=== PATIENT | male | born 1940 | race Caucasian/White ===

== ENCOUNTER 2017-09-30 09:55 | Emergency (ER) | payer MEDICARE, SELFPAY | END 2017-09-30 11:21 | disposition home or self-care (01) | PROVIDERS: Emergency Provider Nurse Practitioner Family; Family Provider Family Medicine; Visit Provider Nurse Practitioner Family | DX: A08.4 Viral intestinal infection, unspecified (principal) | CPT/HCPCS: 99201 ==

== ENCOUNTER → 2017-11-12 15:08 | Outpatient (CLI) | payer MEDICARE, SELFPAY ==
[2017-11-12 15:32] VITALS: BMI 20.6
== END ==
PROVIDERS: PCP Family Medicine; Visit Provider Nurse Practitioner
DX: Z23 Encounter for immunization (principal)
CPT/HCPCS: 90686

== ENCOUNTER → 2018-03-19 14:26 | Outpatient (CLI) | payer MEDICARE, SELFPAY ==
--- NOTE | 2018-03-19 14:30 | MR_ITS ---
MR lumbar spine wo con, MR 3-d myelogram/MRCP HISTORY: PT states low back pain since February 11. PT states bilateral hip pain, bilateral leg pain and tingling. PT also states muscle spasms. ITS.REASON: LUMBAR STENOSIS ORDERING PHYSICIAN: Rosas Anna PATIENT AGE: 77 years Comparison: CT Lumbar 02/12/18 TECHNIQUE: Standard multiplanar multiecho sequences are performed without contrast. 3-D MIP and myelographic images are also rendered and reviewed FINDINGS: There is normal alignment. The spinal cord ends at the L1-L2 level. T11-T12: Unremarkable. T12-L1: Unremarkable. L1-L2: Degenerative disc disease with minimal bulging disc and mild facet ligamentum flavum hypertrophy with mild bilateral foraminal narrowing. L2-L3: Degenerative disc disease. There is a small left paracentral disc herniation along with facet and ligamentum flavum hypertrophy with left lateral recess narrowing. The disc is abutting the left L3 and L4 nerve roots. There is an isointense area adjacent to the disc herniation extending superiorly in the left lateral recess region and foraminal area for superior disc extrusion or possibly a disc fragment with foraminal narrowing. L3-L4: Degenerative disc disease with bulging disc and facet and ligamentum flavum hypertrophy. The disc is slightly eccentric toward the right with bilateral lateral recess and foraminal narrowing greater on the right. L4-L5: Degenerative disc disease with bulging disc and small broad-based right paracentral and foraminal disc revision with type II endplate changes with moderate right-sided foraminal and lateral recess narrowing. The disc is abutting the right L5 nerve root. L5-S1: Degenerative disc disease with bulging disc along with facet and ligamentum flavum hypertrophy with moderate bilateral foraminal narrowing. IMPRESSION: 1. Small left paracentral disc herniation at L2-L3 with suspected superior extrusion on the left versus disc fragment. The disc is abutting the left L3 and L4 nerve roots and there is moderate foraminal narrowing on the left at that level. 2. L3-L4: Degenerative disc disease with bulging disc and facet and ligamentum flavum hypertrophy. The disc is slightly eccentric toward the right with bilateral lateral recess and foraminal narrowing greater on the right. 3. L4-L5: Degenerative disc disease with bulging disc and small broad-based right paracentral and foraminal disc revision with type II endplate changes with moderate right-sided foraminal and lateral recess narrowing. The disc is abutting the right L5 nerve root. 4. L5-S1: Degenerative disc disease with bulging disc along with facet and ligamentum flavum hypertrophy with moderate bilateral foraminal narrowing.
== END ==
PROVIDERS: Family Provider Family Medicine; PCP Family Medicine; Visit Provider Orthopaedic Surgery Orthopaedic Surgery of the Spine
DX: M48.061 Spinal stenosis, lumbar region without neurogenic claudication (principal)
CPT/HCPCS: 72148; 76376

== ENCOUNTER → 2020-06-04 16:08 | Outpatient (CLI) | payer MEDICARE, SELFPAY ==
[2020-06-06 17:19] LABS: Covid-19 Nasal PCR Sendout UK Not Detected
== END ==
PROVIDERS: PCP Family Medicine; Visit Provider Nurse Practitioner Family
DX: Z03.818 Encounter for observation for suspected exposure to other biological agents ruled out (principal)
CPT/HCPCS: U0003

== ENCOUNTER 2020-11-02 12:44 | Emergency (ER) | payer MEDICARE, SELFPAY ==
[2020-11-02 13:30] VITALS: BP 118/71; PULSE 76; RESP 14; TEMP 36.8; O2SAT 98; BMI 20.9
--- NOTE | 2020-11-02 13:56 | HMH.EDUTC ---
[facility] [place] Dis[place] Clinical Impression: Sinusitis Qualifiers: Sinusitis location: unspecified location Chronicity: acute Recurrence: non-recurrent Qualified Code(s): J01.90 - Acute sinusitis, unspecified Disposition: Home, Self-Care Condition on Discharge: Good Instructions: DI for Sinusitis Additional Instructions: Drink plenty of fluids. Take tylenol or ibuprofen for pain or fever. Take the medications as directed. Follow up with your regular doctor. GO TO THE ER FOR ANY WORSENING SYMPTOMS Prescriptions: predniSONE [Deltasone 10mg tablet] 10 mg PO BID 5 Days #10 tab Transmission Status: Received by [facility] # Fluticasone Propionate [Flonase 50mcg nasal spray 16gm] 1 spr NS BID 30 Days #1 bottle Transmission Status: Received by [facility] # Cefdinir [Omnicef 300mg Capsule] 300 mg PO BID #20 cap Transmission Status: Received by [facility] # Referrals: Lonnie Munoz [Primary Care Provider] - Time of Disposition: 14:06 Medical Decision Making - Medical Records Medical records reviewed: No: I reviewed the patient's medical records. - Jeancarlos Inquiry Pt receiving controlled substance: No Vital Signs: 11/02/20 13:30 11/02/20 14:13 Temperature 98.2 F 98.2 F Temperature Source Oral Pulse Rate 76 Pulse Rate [Right Brachial] 76 Respiratory Rate 14 14 Blood Pressure 118/71 Blood Pressure [Right Arm] 118/71 Blood Pressure Mean [Right Arm] 86 Blood Pressure Source [Right Arm] Automatic Cuff Blood Pressure Position [Right Arm] Sitting 02 Sat by Pulse Oximetry 98 Oxygen Delivery Method Room Air Orders (Tests/Meds): ORDERS Category Date Time Status Covid-19 Nasal PCR Sendout P&C Routine Lab 11/02/20 13:40 Received [facility] [place] HPI - General Stated complaint: Roaring in Head, Muscle Pain, Weakness Time Seen by Provider: 11/02/20 13:56 Mode of Arrival: Ambulatory Source of Information: Patient, Significant Other Limitations: No Limitations Description of Symptoms (Recalled from Triage Doc. by RN): PATIENT C/O NASAL DRAINAGE, WATERY EYES, HOARSENESS, WEAKNESS, AND SOA HEENT Symptoms (Recalled from RN notes): No Resp Symptoms (Recalled from RN notes): No Skin Symptoms (Recalled from RN notes): No MS Symptoms (Recalled from RN notes): No Functional Status (Recalled from RN notes): WNL - History of Present Illness Provider Complaint: He states that for the past week or so he has had worsening sinus drainage and congestion. He denies any fever or chills. He denies any covid exposure. - Related Data Home Medications Medication Instructions Recorded Confirmed Clopidogrel Bisulfate [Plavix 75mg 75 mg PO DAILY 02/11/18 02/12/18 Tab] Dicyclomine HCl 20 mg PO QID 02/11/18 02/12/18 Omeprazole [Omeprazole 20mg 20 mg PO DAILY 02/11/18 02/12/18 Capsule] Tamsulosin HCl [Flomax 0.4mg 0.4 mg PO DAILY 02/11/18 02/12/18 capsule] Telmisartan 40 mg PO DAILY 02/11/18 02/12/18 Previous Rx's Medication Instructions Recorded Hydrocod/Acet 5/325 mg [[place] 1 tab PO Q6HP PRN #12 tab 02/12/18 5/325mg tablet] predniSONE [Prednisone 20mg 20 mg PO DAILY #10 tab 02/12/18 Tab] Methocarbamol [Robaxin 500mg Tab] 500 mg PO BID PRN #14 tab 11/30/18 Cefdinir [Omnicef 300mg Capsule] 300 mg PO BID #20 cap 11/02/20 Fluticasone Propionate [Flonase 1 spr NS BID 30 Days #1 bottle 11/02/20 50mcg nasal spray 16gm] predniSONE [Deltasone 10mg tablet] 10 mg PO BID 5 Days #10 tab 11/02/20 Allergies Allergy/AdvReac Type Severity Reaction Status Date / Time aspirin [ASPIRIN] Allergy Mild Verified 11/12/17 15:35 codeine [CODEINE] Allergy Mild Verified 11/12/17 15:35 guaifenesin [GUAIFENESIN] Allergy Mild Verified 11/12/17 15:35 Penicillins [PENICILLINS] Allergy Mild Verified 11/12/17 15:35 - Worker's Comp Is this a Worker's Comp case?: No [facility] History - Hepatitis A Screen Drug use history?: No High risk sexu
[2020-11-02 14:13] VITALS: BP 118/71; PULSE 76; RESP 14; TEMP 36.8; O2SAT 98
[2020-11-03 11:01] LABS: Covid-19 Nasal PCR Sendout P&C Negative
== END 2020-11-02 14:15 | disposition home or self-care (01) ==
PROVIDERS: Emergency Provider Nurse Practitioner Family; PCP Family Medicine
DX: Z20.822 Contact with and (suspected) exposure to COVID-19 (principal); J01.90 Acute sinusitis, unspecified; Z88.0 Allergy status to penicillin
CPT/HCPCS: G0463; 99202; U0004

== ENCOUNTER → 2020-12-31 13:34 | Outpatient (CLI) | payer MEDICARE, SELFPAY ==
--- NOTE | 2020-12-31 13:40 | US_ITS ---
PROCEDURE: US SOFT TISSUE HEAD AND NECK CLINICAL INDICATION: LUMP IN NECK COMPARISON: No exams were available for comparison FINDINGS: Ultrasound performed of the palpable nodule in the back head/neck on the right. There is a 3 x 3 cm by 0.9 cm in thickness lentiform appearing slightly hypoechoic nodule with internal striations which may represent a lipoma. No cyst is evident. This does not have a typical appearance for lymph node. IMPRESSION: Hypoechoic nodule in the right aspect of the neck and head posteriorly consistent with a lipoma Dictated by: Alex Piña MD 12/31/2020 15:27 Alex Piña MD in [place] 12/31/2020 15:27
== END ==
PROVIDERS: PCP Family Medicine; Visit Provider Nurse Practitioner Family
DX: R22.1 Localized swelling, mass and lump, neck (principal)
CPT/HCPCS: 76536

== ENCOUNTER → 2021-01-18 11:23 | Outpatient (CLI) | payer MEDICARE, SELFPAY ==
--- NOTE | 2021-01-18 | CA_ITS ---
APPROVED REPORT Exam: Pharmacologic Technologist: Nevin Nielson Ht: 5 ft 5 in Wt: 126 lbs BSA: 1.63 m2 HR: 56 bpm BP: 136/69 mmHg Indications: Chest Pain, Shortness of Breath Medical History Medications: Omeprazole,,,,, TAMSULOSIN,,,,, CloPIdogrel,,,,, Telmisartan,,,,, Stress Test Details Test: LEXISCAN HR Resting HR: 81 bpm Max Heart Rate (APMHR): 141.761127 bpm Max HR Achieved: 103 bpm Target HR (85% APMHR): 119.766822 bpm % of APMHR: 73.05 Recovery HR: 94 bpm BP Resting BP: 136.0/69.0 mmHg Max BP: 136.0/69.0 mmHg Recovery BP: 136.0/76.0 mmHg ECG Resting ECG: Sinus bradycardia, otherwise normal Clinical Exercise duration: 04:03 min Highest Stage Achieved: Exercise capacity: 1.0 METs Stress ECG Conclusion Symptoms: Shortness of air, malaise. No chest pain Arrhythmias/Ectopy: Rare PVC, fusion beat ST-T Changes: No significant changes Conclusion: Unremarkable lexiscan stress. Myoview images reported separately. Electronically signed by : Darryl Kahn, 01/18/2021 21:55:13
--- NOTE | 2021-01-18 11:25 | CA_ITS ---
APPROVED REPORT EXAM: Comprehensive 2D, Doppler, and color-flow Echocardiogram Youth Support Worker: Halie Gil, AFIA, RVS Ht: 5 ft 5 in Wt: 126lbs BSA: 1.63 HR: 70 bpm BP: 140/63 mmHg Rhythm: NSR Indications: SOB, CP, CAD, Hx-MA 2D Dimensions IVSd 0.86 cm LVEF (Visual) 54.40 % PWd 0.95 cm LA Volume 43.80 mL LVDd 4.03 cm LA Volume Index 26.90 mL/m2 (M/F) 16-34 LVDs 2.91 cm LVOT 1.98 cm (M/F) 1.5-2.5 M-Mode Dimensions LA Diam 3.95 cm (1.9-4.0) Ao Diam 3.16 cm (2.0-3.7) EPSs 0.68 cm TAPSE 2.33 (<1.7) LV Diastology E Decel Time 260.00 (160-240 msec) E/A Ratio 2.06 MED E' 12.40 (< 7 cm/sec) MED A' 14.80 cm/s E'/MED E' Ratio 8.04 (>14) LAT E' 12.80 (<10 cm/sec) LAT A' 12.40 cm/s E/LAT E' Ratio 7.79 (>14) Aortic Valve LVOT Max 99.00 (70-110 cm/s) LVOT VTI 18.67 cm AoV Peak Vasu. 129.00 (50-130 cm/s) AO Peak GR. 6.70 mmHg AO Mean GR. 3.20 (<5 mmHg) AO VTI 27.89 (18-25 cm) POLY (VTI) 2.06 (2.5-4.5 cm2) Mitral Valve MV E Max Vasu. 100.00 (40-130 cm/s) MV A Velocity 48.00 (40-130 cm/s) E/A Ratio 2.06 MV Decel. Time 260.00 (160-240 ms) MV PHT 76.00 ms Pulmonary Valve PV Peak Velocity 91.00 (50-150 cm/s) CT End VMAX 183.00 cm/s Tricuspid Valve TR P. Velocity 271.00 cm/s RAP Estimate 10.00 mmHg RVSP 39.40 mmHg Left Ventricle Left atrium is mildly enlarged, left ventricle is normal size, mild concentric left ventricular hypertrophy, visually estimated ejection fraction 55% with no regional wall motion abnormality, diastolic parameters are inconclusive. Right Ventricle Right atrium is mildly enlarged, right ventricle is mildly dilated with normal contractility. Aortic Valve Aortic valve is minimally thickened and fibrosed, there is no aortic stenosis or aortic insufficiency. Mitral Valve Mitral valve leaflets are minimally thickened, there is mild mitral regurgitation. Tricuspid Valve Tricuspid grossly normal, there is mild tricuspid regurgitation, calculated right ventricular systolic pressure 39 mmHg. Pulmonic Valve Pulmonic valve is poorly visualized. Great Vessels Aortic root is normal size. Pericardium No significant pericardial effusion noted. Conclusion 1. Biatrial enlargement, normal left ventricular size, mild concentric left ventricular hypertrophy, visually estimated ejection fraction 55% with no regional wall motion abnormality, diastolic parameters are inconclusive. 2. Mildly enlarged right ventricle with normal contractility. 3. Mild mitral and tricuspid regurgitation. 4. No significant pericardial effusion noted. Electronically signed by : Darryl Kahn, 01/18/2021 21:46:43
--- NOTE | 2021-01-18 11:33 | NM_ITS ---
APPROVED REPORT Exam: Nuclear Stress Test Indication: Chest pain, SOB, Syncope, Fatigue, HTN, High cholesterol, Hx of IN Patient Location: Outpatient Stress Tech: Nevin Nielson [place] Tech:Jennifer Rainey, ARRT, RT (R)(N) Ht: 5 ft 5 in Wt: 129 lbs HR: 56 bpm BP: 136/69 mmHg BSA: 1.64 m2 BMI: 21.4 History: Chest pain, SOB, Syncope, Fatigue, HTN, High cholesterol, Hx of IN Procedure: Patient received a 0.4 mg of intravenous Lexiscan, resting heart rate 56 bpm, resting blood pressure 136/69 mmHg, with Lexiscan maximum heart rate achived was 94 bpm which is Less than 85 % of the maximum predicted heart rate and blood pressure was 129/59 mmHg. With Lexiscan, patient denied any complaint of chest pain. Electrocardiogram Resting electrocardiogram showed sinus rhythm, with Lexiscan there is less than 1.[address] segment depression noted from the baseline EKG. The EKG portion of the Lexiscan Myoview was nondiagnostic. Cardiac Stress and Resting SPECT Images: Cardiac Stress and Resting SPECT images were obtained using technetium 99m Myoview 31.3 mCi stress and 9.97 mCi at rest. Gated SPECT for analysis of segmental wall motion and calculation of the ejection fraction also done. Cardiac stress and resting SPECT images show uniform myocardial activity without segmental perfusion abnormality, computer derived ejection fraction is over 65% with no regional wall motion abnormality, right ventricle is normal size and contractility. Conclusion: 1. The EKG portion of the Lexiscan is nondiagnostic. 2. No scintigraphic evidence of reversible ischemia seen, computer derived ejection fraction is over 65% with no regional wall motion abnormality, right ventricle is normal size and contractility. 3. Normal Lexiscan Myoview study. Electronically signed by : Darryl Kahn, 01/18/2021 22:07:23
--- NOTE | 2021-01-18 13:07 | HMH.ITSHM ---
Current Home Medications as stated by this patient Star Flowers or field representatives director. []TELMISARTAN TAMSULOSIN OMEPRAZOLE CLOPIDOGREL
== END ==
PROVIDERS: PCP Family Medicine; Visit Provider Nurse Practitioner Family
DX: E78.5 Hyperlipidemia, unspecified (principal); G89.29 Other chronic pain; I10 Essential (primary) hypertension; I20.9 Angina pectoris, unspecified; I25.2 Old myocardial infarction; R06.00 Dyspnea, unspecified; R29.898 Other symptoms and signs involving the musculoskeletal system; R42 Dizziness and giddiness; R51.9 Headache, unspecified
CPT/HCPCS: 78452; 93017; 93306; A9502; J2785

== ENCOUNTER → 2021-01-28 10:41 | Outpatient (CLI) | payer MEDICARE, SELFPAY ==
--- NOTE | 2021-01-28 10:47 | US_ITS ---
APPROVED REPORT Exam Type: Ankle to Brachial Index Sweep Press Operator: RT Leslie(R) Indications Claudication: Bilaterally Rest Pain: Bilaterally Risk Factors Hypertension Pressures/Indices Right Indices Left Indices Brachial 148.00 mmHg Brachial 149.00 mmHg Low Thigh 156.00 mmHg 1.05 Low Thigh 145.00 mmHg 0.97 Calf 172.00 mmHg 1.15 Calf 193.00 mmHg 1.30 Ankle(PT) 158.00 mmHg 1.06 Ankle(PT) 170.00 mmHg 1.14 Ankle(DP) 166.00 mmHg 1.11 Ankle(DP) 158.00 mmHg 1.06 Digit 130.00 mmHg 0.87 Digit 124.00 mmHg 0.83 Findings RT TELMA=1.11 LT TELMA=1.1 RT TBI=0.87 LT TBI=0.83 Normal pulses Normal waveforms Conclusion Normal appearing resting noninvasive lower extremity arterial study. Electronically signed by : Alex Piña MD 01/28/2021 17:53:22
== END ==
PROVIDERS: PCP Family Medicine; Visit Provider Nurse Practitioner Family
DX: I70.213 Atherosclerosis of native arteries of extremities with intermittent claudication, bilateral legs
CPT/HCPCS: 93923

== ENCOUNTER → 2021-04-12 13:45 | Outpatient (CLI) | payer MEDICARE, SELFPAY ==
--- NOTE | 2021-04-12 13:48 | XR_ITS ---
PROCEDURE: XR HIP RT 2-3V W/PELVIS CLINICAL INDICATION: RT HIP PAIN COMPARISON: No exams were available for comparison FINDINGS: No fracture or dislocation. No lytic or blastic change. Minimal osteoarthritic change. There are degenerative changes in the lower lumbar spine. IMPRESSION: Minimal osteoarthritic change otherwise negative Dictated by: Alex Piña MD 04/12/2021 14:06 Alex Piña MD in [place] 04/12/2021 14:06
== END ==
PROVIDERS: PCP Family Medicine; Visit Provider Family Medicine
DX: M25.551 Pain in right hip (principal)
CPT/HCPCS: 73502

== ENCOUNTER 2021-06-20 11:59 | Emergency (ER) | payer MEDICARE, SELFPAY ==
[2021-06-20 13:25] VITALS: BP 106/76; PULSE 87; RESP 18; TEMP 36.7; O2SAT 98; BMI 20.9
--- NOTE | 2021-06-20 13:58 | HMH.EDUTC ---
[facility] [place] Clinical Impression: Infected finger Disposition: Home, Self-Care Condition on Discharge: Good Instructions: DI for Wound Infection Additional Instructions: Keep wound area clean and dry Use Topical antibiotic as prescribed Take oral medication as prescribed Return if needed Straight to ER if any life threatening symptoms Follow up with your Family Doctor if no improvement or any worsening of symptoms Prescriptions: cephALEXin [cephALEXin 500mg capsule*] 500 mg PO Q8H 7 Days #21 cap Transmission Status: Pending to [facility] [employer] # Mupirocin Calcium [Mupirocin 2% Cream 15gm] 1 applicatio TP BID 10 Days #15 gm Transmission Status: Pending to [facility] [facility] [employer] # Referrals: Evelyn Kaur MD [Primary Care Provider] - As needed Time of Disposition: 14:38 Medical Decision Making - Jeancarlos Inquiry Pt receiving controlled substance: No Jeancarlos was queried for this patient: No Vital Signs: 06/20/21 13:25 06/20/21 14:09 Temperature 98.1 F 98.1 F Temperature Source Oral Pulse Rate 87 Pulse Rate [Right Brachial] 87 Respiratory Rate 18 18 Blood Pressure 106/76 L Blood Pressure [Right Arm] 106/76 L Blood Pressure Mean [Right Arm] 86 Blood Pressure Source [Right Arm] Automatic Cuff Blood Pressure Position [Right Arm] Sitting 02 Sat by Pulse Oximetry 98 Oxygen Delivery Method Room Air Medical Decision Narrative: Patient states that he thinks he took Cefdinir in Oct of this year without complications or reactions [facility] [place] - General Stated complaint: [id number] MIDDLE FINGER,RIGHT HAND Time Seen by Provider: 06/20/21 13:50 Mode of Arrival: Ambulatory Source of Information: Patient Limitations: No Limitations Description of Symptoms (Recalled from Triage Doc. by RN): PATIENT STATES HE CUT HIS RIGHT MIDDLE FINGER WHILE GARDENING APPROX 1 WEEK AGO. C/O REDNESS, SWELLING AND PAIN TO AREA HEENT Symptoms (Recalled from RN notes): No Resp Symptoms (Recalled from RN notes): No Skin Symptoms (Recalled from RN notes): Yes MS Symptoms (Recalled from RN notes): No Functional Status (Recalled from RN notes): WNL - History of Present Illness Provider Complaint: Patient state that he was doing gardening last week when he accidently cut his right middle finger States that he noticed it was looking red and swollen and thinks that it may be infected so he came in to see if he needed antibioitics - Related Data Home Medications Medication Instructions Recorded Confirmed Clopidogrel Bisulfate [Plavix 75mg 75 mg PO DAILY 02/11/18 01/26/21 Tab] Omeprazole [Omeprazole 20mg 20 mg PO DAILY 02/11/18 01/26/21 Capsule] Tamsulosin HCl [Flomax 0.4mg 0.4 mg PO DAILY 02/11/18 01/26/21 capsule] telmisartan 40 mg tablet 10 mg PO DAILY tab 02/07/21 Previous Rx's Medication Instructions Recorded Mupirocin Calcium [Mupirocin 2% 1 applicatio TP BID 10 Days #15 gm 06/20/21 Cream 15gm] cephALEXin [cephALEXin 500mg 500 mg PO Q8H 7 Days #21 cap 06/20/21 capsule*] Allergies Allergy/AdvReac Type Severity Reaction Status Date / Time aspirin [ASPIRIN] Allergy Mild Verified 02/07/21 14:01 codeine [CODEINE] Allergy Mild Verified 02/07/21 14:01 guaifenesin [GUAIFENESIN] Allergy Mild Verified 02/07/21 14:01 Penicillins [PENICILLINS] Allergy Mild Verified 02/07/21 14:01 - Worker's Comp Is this a Worker's Comp case?: No [facility] History - Hepatitis A Screen Drug use history?: No High risk sexual behaviors?: No History of sexually transmitted infection?: No Currently employed?: No Childcare worker?: No Do you have indoor plumbing?: Yes Do you have electricity?: Yes Attestation statement:: This patient has been screened for Hepatitis A risk factors. I have reviewed the patient's past medical history: Yes Medical History: Reports:: Hyperlipidemia, Hypertension, Myocardial Infarction Denies:: Cancer, Diabetes Mellitus Type 1, Diabetes Mellitus Type 2, MRSA
[2021-06-20 14:09] VITALS: BP 106/76; PULSE 87; RESP 18; TEMP 36.7; O2SAT 98
== END 2021-06-20 14:43 | disposition home or self-care (01) ==
PROVIDERS: Emergency Provider Nurse Practitioner; PCP Family Medicine
DX: L03.011 Cellulitis of right finger (principal); I10 Essential (primary) hypertension; E78.5 Hyperlipidemia, unspecified; I25.2 Old myocardial infarction
CPT/HCPCS: G0463; 99202

== ENCOUNTER 2021-08-12 12:55 | Emergency (ER) | payer MEDICARE, SELFPAY ==
--- NOTE | 2021-08-12 13:48 | HMH.EDUTC ---
[facility] [place] Disposition Clinical Impression: Sinusitis, Pneumonia, Vertigo Disposition: Home, Self-Care Condition on Discharge: Good Instructions: DI for Sinusitis Prescriptions: levoFLOXacin [Levaquin 500mg tab] 500 mg PO DAILY 10 Days #10 tab Transmission Status: Received by [facility] # Ondansetron [Ondansetron Odt 8mg Tab] 8 mg PO TID PRN #30 tab PRN Reason: Nausea Transmission Status: Sent to [facility] # predniSONE [Prednisone 20mg Tab] 20 mg PO BID 5 Days #10 tab Transmission Status: Received by [facility] # Referrals: Evelyn Kaur MD [Primary Care Provider] - Time of Disposition: 15:04 Medical Decision Making - Jeancarlos Inquiry Pt receiving controlled substance: No Vital Signs: 08/12/21 14:10 Temperature 98.5 F Temperature Source Oral Pulse Rate [Left] 67 Respiratory Rate 18 Blood Pressure [Right Arm] 137/68 Blood Pressure Mean [Right Arm] 91 02 Sat by Pulse Oximetry 99 - Radiology Data #1 Image(s): Chest Image Reviewed: Yes I reviewed the patient's radiology image Preliminary Findings: Normal/NAD [facility] [place] HPI - General Stated complaint: cough, headahce, vomiting, weakness Time Seen by Provider: 08/12/21 13:48 - History of Present Illness Provider Complaint: Patient states that he has felt poorly for two weeks. He has pain in his right ear. He can feel his heartbeat in his right ear. He has pain in his right cheek and right upper teeth. He has a sore throat. He has a lot of drainage. Feels like he is strangling on drainage. He has had a cough and shortness of breath. Feels like he needs to belch. Has vomited a few times. No diarrhea. No fever. No rash. Onset (ago): week(s) (2) Location: face, chest Relieving factors: none Exacerbating factors: none Associated symptoms: denies other symptoms Treatments prior to arrival: none - Related Data Home Medications Medication Instructions Recorded Confirmed Clopidogrel Bisulfate [Plavix 75mg 75 mg PO DAILY 02/11/18 01/26/21 Tab] Omeprazole [Omeprazole 20mg 20 mg PO DAILY 02/11/18 01/26/21 Capsule] Tamsulosin HCl [Flomax 0.4mg 0.4 mg PO DAILY 02/11/18 01/26/21 capsule] telmisartan 40 mg tablet 10 mg PO DAILY tab 02/07/21 Previous Rx's Medication Instructions Recorded Mupirocin Calcium [Mupirocin 2% 1 applicatio TP BID 10 Days #15 gm 06/20/21 Cream 15gm] cephALEXin [cephALEXin 500mg 500 mg PO Q8H 7 Days #21 cap 06/20/21 capsule*] Ondansetron [Ondansetron Odt 8mg 8 mg PO TID PRN #30 tab 08/12/21 Tab] levoFLOXacin [Levaquin 500mg 500 mg PO DAILY 10 Days #10 tab 08/12/21 tab] predniSONE [Prednisone 20mg 20 mg PO BID 5 Days #10 tab 08/12/21 Tab] Allergies Allergy/AdvReac Type Severity Reaction Status Date / Time aspirin [ASPIRIN] Allergy Mild Verified 02/07/21 14:01 codeine [CODEINE] Allergy Mild Verified 02/07/21 14:01 guaifenesin [GUAIFENESIN] Allergy Mild Verified 02/07/21 14:01 Penicillins [PENICILLINS] Allergy Mild Verified 02/07/21 14:01 [facility] History - Hepatitis A Screen Attestation statement:: This patient has been screened for Hepatitis A risk factors. I have reviewed the patient's past medical history: Yes Medical History: Reports:: Hyperlipidemia, Hypertension, Myocardial Infarction Denies:: Cancer, Diabetes Mellitus Type 1, Diabetes Mellitus Type 2, MRSA Other Surgeries: Yes: Cardiac Catheterization, Coronary Stent Amputation: No Fractures: No - Social History Smoking Status: Unknown if ever smoked Tobacco Type: smokeless tobacco Alcohol Intake: never Occupational Status: other Household Members: spouse ROS Obtained: Yes All systems reviewed & no additional complaints - Constitutional Constitutional: Reports body ache, Reports fatigue, Reports headache(s), Reports weakness - ENT Ears, Nose, Mouth, and Throat: Reports dizziness, Reports otalgia, Reports headache(s), Reports nasal
[2021-08-12 14:10] VITALS: BP 137/68; PULSE 67; RESP 18; TEMP 36.9; O2SAT 99; BMI 19.2
--- NOTE | 2021-08-12 14:14 | XR_ITS ---
PROCEDURE: XR CHEST 2V CLINICAL HISTORY: soa COMPARISON: CR CXR1 CHEST-PORTABLE from 06/10/2015 FINDINGS: The cardiomediastinal silhouette and pulmonary vascularity are within normal limits. The lungs are clear without infiltrates, suspicious nodules, or pleural effusions. No acute bony abnormalities. IMPRESSION: No acute findings. Dictated by: Alex Piña MD 08/12/2021 14:56 Alex Piña MD in [place] 08/12/2021 14:57
[2021-08-12 15:21] VITALS: BP 137/68; PULSE 67; RESP 18; TEMP 36.9
== END 2021-08-12 15:31 | disposition home or self-care (01) ==
PROVIDERS: Emergency Provider Physician Assistant; PCP Family Medicine
DX: J01.90 Acute sinusitis, unspecified (principal); J18.9 Pneumonia, unspecified organism; E78.5 Hyperlipidemia, unspecified; I10 Essential (primary) hypertension; I25.2 Old myocardial infarction; Z88.0 Allergy status to penicillin
CPT/HCPCS: G0463; 71046; 96372; 99202; J1040

== ENCOUNTER → 2021-08-25 12:24 | Outpatient (CLI) | payer MEDICARE, SELFPAY | PROVIDERS: PCP Family Medicine; Visit Provider Nurse Practitioner | DX: Z20.822 Contact with and (suspected) exposure to COVID-19 (principal) | CPT/HCPCS: C9803; U0003; U0005 ==

== ENCOUNTER 2021-08-28 18:02 | Emergency (ER) | payer MEDICARE, SELFPAY ==
[2021-08-28 18:03] VITALS: BMI 19.3
--- NOTE | 2021-08-28 18:04 | CT_ITS ---
PROCEDURE INFORMATION: Exam: CT Head Without Contrast Exam date and time: 08/28/2021 6:04 PM Age: 80 years old Clinical indication: Altered mental status/memory loss; Confusion or disorientation; Additional info: CVA rule out TECHNIQUE: Imaging protocol: Computed tomography of the head without contrast. Radiation optimization: All CT scans at this facility use at least one of these dose optimization techniques: automated exposure control; mA and/or kV adjustment per patient size (includes targeted exams where dose is matched to clinical indication); or iterative reconstruction. Other technique: STROKE PROTOCOL was implemented. COMPARISON: US SOFT TISSUE HEAD AND NECK 12/31/2020 1:53 PM FINDINGS: Brain: Motion and metal artifact slightly limits exam. However, no intracranial hemorrhage is suspected. No CT evidence of acute cortical infarct. No mass effect. Mild non-specific white matter hypoattenuation is probably due to chronic small vessel ischemia. Cerebral ventricles: No ventriculomegaly. Paranasal sinuses: Visualized sinuses are unremarkable. No fluid levels. Mastoid air cells: Visualized mastoid air cells are well aerated. Bones/joints: Unremarkable. No acute fracture. Soft tissues: Unremarkable. IMPRESSION: Slightly limited exam as above, but no evidence of acute intracranial pathology ASSESSMENT: ASPECTS ([place] Stroke Program Early CT Score) is 10.
--- NOTE | 2021-08-28 18:04 | XR_ITS ---
PROCEDURE INFORMATION: Exam: XR Chest Exam date and time: 08/28/2021 6:04 PM Age: 80 years old Clinical indication: Shortness of breath; Additional info: Difficulty breathing TECHNIQUE: Imaging protocol: XR of the chest. Views: 1 view. COMPARISON: CR XR CHEST 2V 08/12/2021 2:17 PM FINDINGS: Lungs: Unremarkable. No consolidation. Pleural spaces: Unremarkable. No pleural effusion. No pneumothorax. Heart/Mediastinum: Unremarkable. No cardiomegaly. Bones/joints: Unremarkable. IMPRESSION: No acute findings.
--- NOTE | 2021-08-28 18:04 | ECG_ITS ---
APPROVED REPORT Exam: Resting ECG HR:57 bpm ECG Measurements Heart Rate 57 AXES PA 120 P 59 QRSd 80 QRS 40 QT 420 T 42 QTc 408 Conclusion Sinus bradycardia Otherwise normal ECG Electronically signed by : Dennis Gomez MD 08/30/2021 12:19:08
[2021-08-28 18:14] VITALS: BP 157/83; PULSE 56; RESP 16; TEMP 36.7; O2SAT 100; BMI 19.3
[2021-08-28 18:17] LABS: Basophils # 0.1 K/mm3 (0-0.2); Basophils % 0.7 % (0.1-2.0); Eosinophils # 0.4 K/mm3 (0.0-0.4); Eosinophils % 4.2 % (0.1-12.0); Hematocrit 43.1 % (42.0-52.0); Hemoglobin 14.7 g/dL (14.1-18.0); Lymphocytes # 1.4 K/mm3 (0.7-4.5); Lymphocytes % 14.5 % (10-50); Mean Platelet Volume 8.8 fl (7.4-10.4); Monocytes # 0.5 K/mm3 (0.1-1.0); Monocytes % 4.8 % (1.7-9.3); Neutrophils # 7.3 K/mm3 (1.8-7.8); Neutrophils % 75.8 % (37.0-80.0); Platelet Count 304 K/mm3 (142-424); Red Blood Count 4.31 M/mm3 (4.60-6.20); Red Cell Distribution Width 12.7 % (11.5-17.5); White Blood Count 9.6 K/mm3 (4.8-10.8)
[2021-08-28 18:19] LABS: Chloride 105 mmol/L (98-107); Potassium 4.2 mmoL/L (3.5-5.1); Sodium 138 mmol/L (136-145)
[2021-08-28 18:21] LABS: Alanine Aminotransferase 10 U/L (12-78); Aspartate Amino Transferase 29 U/L (17-59); Blood Urea Nitrogen 17 mg/dl (9-20); Creatinine Clearance Estimated 46 mL/min (50-200); Estimated Glomerular Filt Rate 81 ml/min (>60); GFR (African American) 98 ML/MIN (>60)
[2021-08-28 18:22] LABS: Albumin Level 3.9 g/dl (3.5-5.0); Albumin/Globulin Ratio 1.3 (1.1-1.8); Alkaline Phosphatase 59 U/L (38-126); Anion Gap 10.2 mEq/L (5-15); Bilirubin,Total 0.5 mg/dl (0.2-1.3); Calcium 8.9 mg/dl (8.4-10.2); Carbon Dioxide 27 mmol/L (22.0-30.0); Globulin 2.9 g/dL (1.3-3.2); Glucose 131 mg/dl (74-100); Total Protein,Serum 6.8 g/dl (6.3-8.2)
[2021-08-28 18:24] LABS: Prothrombin Time 12.3 seconds (10.1-12.5)
--- NOTE | 2021-08-28 18:24 | HMH.EDGENADL ---
ED Disposition Clinical Impression: Atypical chest pain, Vertigo, Anxiety state Disposition: Home, Self-Care Condition on Discharge: Good Instructions: DI for Vertigo, DI for Atypical Chest Pain, DI for Anxiety -- Adult Additional Instructions: Call your primary care doctor tomorrow for follow-up. Return emergency department if symptoms return. Additional instructions for CHEST PAIN: See your physician as soon as possible for further evaluation. Return immediately if worsening chest pain, vomiting, shortness of breath, fever, coughing of blood. Referrals: Provider,Referral, [Referring] - - Critical Care Critical Care Time: No Attestation: On 08/28/21, the high probability of a clinically significant, sudden or life threatening deterioration of the following system(s) required my full and direct attention, intervention and personal management. The time I documented below is in addition to time spent performing reported procedures but includes the following listed in this critical care notation. Medical Decision Making - Jeancarlos Inquiry Pt receiving controlled substance: Yes Jeancarlos was queried for this patient: No Risks and benefits of using a controlled substance: were not discussed with pt by me Vital Signs: 08/28/21 18:14 Temperature 98.0 F Temperature Source Oral Pulse Rate [Left Radial] 56 L Respiratory Rate 16 Blood Pressure [Right Arm] 157/83 H Blood Pressure Mean [Right Arm] 107 Blood Pressure Source [Right Arm] Automatic Cuff Blood Pressure Position [Right Arm] Sitting 02 Sat by Pulse Oximetry 100 Oxygen Delivery Method Room Air - Lab Data Lab Results 08/28/21 18:04: WBC 9.6, RBC 4.31 L, Hgb 14.7, Hct 43.1, MCV 100.0 H, MCH 34.0 H, MCHC 34.0, RDW 12.7, Plt Count 304, MPV 8.8, Neut % (Auto) 75.8, Lymph % (Auto) 14.5, [place] % (Auto) 4.8, Eos % (Auto) 4.2, Baso % (Auto) 0.7, Neut # (Auto) 7.3, Lymph # (Auto) 1.4, [place] # (Auto) 0.5, Eos # (Auto) 0.4, Baso # (Auto) 0.1 08/28/21 18:04: Sodium 138, Potassium 4.2, Chloride 105, Carbon Dioxide 27, Anion Gap 10.2, BUN 17, Creatinine 0.90, Estimated Creat Clear 46, Estimated GFR 81, Est GFR ( Amer) 98, Glucose 131 H, Calcium 8.9, Total Bilirubin 0.5, AST 29, ALT 10 L, Alkaline Phosphatase 59, Troponin I < 0.01, Total Protein 6.8, Albumin 3.9, Globulin 2.9, Albumin/Globulin Ratio 1.3 08/28/21 18:04: NT-Pro-B Natriuret Pep 657 H 08/28/21 18:04: PT 12.3, INR 1.10 08/28/21 20:05: Urine Color Yellow, Urine Appearance Clear, Urine pH 8.0, Ur Specific [place] 1.020, Urine Protein Trace, Urine Glucose (UA) Negative, Urine Ketones Negative, Urine Blood Negative, Urine Nitrate Negative, Urine Bilirubin Negative, Urine Urobilinogen 0.2, Ur Leukocyte Esterase Negative, Urine RBC Occasional, Urine WBC 3-5, Ur Squamous Epith Cells 3-5, Urine Bacteria 1+ Result diagrams: 08/28/21 18:04 08/28/21 18:04 Orders (Tests/Meds): ED MEDICATIONS Generic Name Dose Route Start Last Admin Trade Name Freq PRN Reason Stop Dose Admin Sodium Chloride 10 ml 08/28/21 18:43 Sodium Chloride 0.9% 10ml Vial IV 09/27/21 18:42 NEEDED PRN to Dilute Lorazepam inj Discontinued Medications Generic Name Dose Route Start Last Admin Trade Name Freq PRN Reason Stop Dose Admin Lorazepam 0.5 mg 08/28/21 18:43 08/28/21 18:47 Lorazepam 2mg/Ml Vial IV 08/28/21 18:44 0.5 mg ONCE ONE Administration ORDERS Category Date Time Status Troponin I Q3H Lab 08/28/21 21:15 Ordered Troponin I Q3H Lab 08/29/21 00:15 Ordered - Radiology Data #1 Image(s): Chest Image Reviewed: Yes I have reviewed radiologist's interpretation PROCEDURE INFORMATION: Exam: XR Chest Exam date and time: 08/28/2021 6:04 PM Age: 80 years old Clinical indication: Shortness of breath; Additional info: Difficulty breathing TECHNIQUE: Imaging protocol: XR of the chest. Views: 1 view. COMPARISON: CR XR CHEST 2V 08/12/2021 2:17 PM FINDINGS: Lungs:
[2021-08-28 18:34] LABS: NT Pro Brain Natriuretic Pep. 657 pg/mL (0-450)
[2021-08-28 18:45] LABS: Troponin I < 0.01 ng/ml (0.00-0.034)
--- NOTE | 2021-08-28 20:02 | PC.NURSE ---
urine collected and sent to lab
[2021-08-28 20:10] LABS: Microscopic, Urine URINE MICROSCOPIC (MICROSCOPIC)
[2021-08-28 20:13] LABS: Appearance,Urine CLEAR (Clear); Bilirubin,Urine Negative (Negative); Blood, Urine Negative (Negative); Color,Urine YELLOW (Yellow); Glucose,Urine (UA) Negative (Negative); Ketones,Urine Negative (Negative); Leukocyte Esterase,Urine Negative (Negative); Nitrate,Urine Negative (Negative); Protein,Urine TRACE (Negative); Urobilinogen,Urine 0.2 EU/dl (0.2)
[2021-08-28 20:24] LABS: Bacteria,Urine 1+ /lpf; RBC,Urine Occasional #/hpf (0-3)
[2021-08-28 21:25] LABS: Troponin I < 0.01 ng/ml (0.00-0.034)
[2021-08-28 21:46] VITALS: BP 121/70; PULSE 79; RESP 18; TEMP 36.8; O2SAT 99
== END 2021-08-28 21:50 | disposition home or self-care (01) ==
PROVIDERS: Emergency Provider Emergency Medicine; PCP Family Medicine
DX: R07.89 Other chest pain (principal); R42 Dizziness and giddiness; F41.1 Generalized anxiety disorder; I10 Essential (primary) hypertension; I25.2 Old myocardial infarction; E78.5 Hyperlipidemia, unspecified; Z88.0 Allergy status to penicillin; Z88.8 Allergy status to other drugs, medicaments and biological substances; Z79.899 Other long term (current) drug therapy
CPT/HCPCS: 70450; 71045; 80053; 81001; 83880; 84484; 85025; 85610; 93005; 96374; 99282

== ENCOUNTER 2021-09-15 12:36 | Emergency (ER) | payer MEDICARE, SELFPAY ==
[2021-09-15 13:20] VITALS: BP 143/73; PULSE 67; RESP 18; TEMP 37.3; O2SAT 99
--- NOTE | 2021-09-15 13:37 | HMH.EDUTC ---
[facility] Disposition Clinical Impression: Vertigo, Altered gait, Muscle weakness (generalized) Disposition: Left Against Medical Advice Condition on Discharge: Good Instructions: Vertigo, DI for Vertigo Additional Instructions: Take the medications as directed. Follow up with your regular doctor. GO TO THE ER FOR ANY WORSENING SYMPTOMS Follow up with your primary care physician. I put in a referral to Dr. Martinez (neurology). A neurologist would be the best physician for you to see to have your condition further diagnosed. Please have the MRI that your primary care doctor has scheduled. This test is the most likely test to give a good explanation for your dizziness and other symptoms. Referrals: Evelyn Kaur MD [Primary Care Provider] - Madhuri Martinez MD [Staff Physician] - Medical Decision Making - Medical Records Medical records reviewed: No: I reviewed the patient's medical records. - Jeancarlos Inquiry Pt receiving controlled substance: No Vital Signs: 09/15/21 13:20 09/15/21 15:56 Temperature 99.1 F 99.1 F Temperature Source Oral Oral Pulse Rate 67 Pulse Rate [Left Radial] 67 Respiratory Rate 18 18 Blood Pressure 143/73 H Blood Pressure [Right Arm] 143/73 H Blood Pressure Mean [Right Arm] 96 Blood Pressure Source [Right Arm] Automatic Cuff Blood Pressure Position [Right Arm] Sitting 02 Sat by Pulse Oximetry 99 Oxygen Delivery Method Room Air Room Air - Radiology Data #1 Image(s): Chest Image Reviewed: Yes I reviewed the patient's radiology image, Yes I have reviewed radiologist's interpretation Preliminary Findings: No Infiltrates Seen PROCEDURE INFORMATION: Exam: XR Chest Exam date and time: 09/15/2021 1:51 PM Age: 80 years old Clinical indication: Cough TECHNIQUE: Imaging protocol: XR of the chest. Views: 2 views. COMPARISON: CR XR CHEST PORTABLE 08/28/2021 6:18 PM FINDINGS: Lungs: Lungs are hyperinflated and there is mild prominence of the interstitium without focal consolidation. Pleural spaces: No pleural effusion or pneumothorax. Heart/Mediastinum: No cardiomegaly. Atherosclerosis is seen in the thoracic aorta. Bones/joints: Skeletal degeneration. Organs: Surgical clips in gallbladder fossa. IMPRESSION: Pulmonary hyperinflation which may be due to chronic obstructive pulmonary disease without evidence of superimposed pneumonia or congestive heart failure. Medical Decision Narrative: He is unwilling to wait while being seen. He keeps leaving the unit to check on his family, then coming back. I tried to explain to him that things like getting readings on chest x-rays take time, but he ultimately left the unit and did not return before he could be discharged properly. [facility] HPI - General Stated complaint: weakness, body aches Time Seen by Provider: 09/15/21 13:37 Mode of Arrival: Ambulatory Source of Information: Patient Limitations: No Limitations Description of Symptoms (Recalled from Triage Doc. by RN): pt to [facility] c/o body aches, chills, sinus drainage and bilateral ear pain x1 week. HEENT Symptoms (Recalled from RN notes): Yes Resp Symptoms (Recalled from RN notes): Yes Skin Symptoms (Recalled from RN notes): No MS Symptoms (Recalled from RN notes): No Functional Status (Recalled from RN notes): na - History of Present Illness Provider Complaint: He states that for the past couple of months he has had dizziness. He also has had difficulty walking due to muscle stiffness and his legs not doing what he tells them to do. He has to shuffle when he walks due to his leg weakness. He is also having arm weakness that is equal bilaterally. His pcp has a MRI of his brain scheduled, but he says that he cannot do an mri because he can't lie flat for long enough. - Related Data Home Medications Medication Instructions Recorded Confirmed Clopidogrel Bisulfate [P
--- NOTE | 2021-09-15 13:51 | XR_ITS ---
PROCEDURE INFORMATION: Exam: XR Chest Exam date and time: 09/15/2021 1:51 PM Age: 80 years old Clinical indication: Cough TECHNIQUE: Imaging protocol: XR of the chest. Views: 2 views. COMPARISON: CR XR CHEST PORTABLE 08/28/2021 6:18 PM FINDINGS: Lungs: Lungs are hyperinflated and there is mild prominence of the interstitium without focal consolidation. Pleural spaces: No pleural effusion or pneumothorax. Heart/Mediastinum: No cardiomegaly. Atherosclerosis is seen in the thoracic aorta. Bones/joints: Skeletal degeneration. Organs: Surgical clips in gallbladder fossa. IMPRESSION: Pulmonary hyperinflation which may be due to chronic obstructive pulmonary disease without evidence of superimposed pneumonia or congestive heart failure.
--- NOTE | 2021-09-15 15:30 | PC.NURSE ---
pt states he did not want to wait for cxr read and walked out of [facility] and did not return. pt educated on the risks associated with leaving.
[2021-09-15 15:56] VITALS: BP 143/73; PULSE 67; RESP 18; TEMP 37.3; O2SAT 99
== END 2021-09-15 15:59 | disposition left against medical advice (07) ==
PROVIDERS: Emergency Provider Nurse Practitioner Family; PCP Family Medicine
DX: R42 Dizziness and giddiness (principal); R26.9 Unspecified abnormalities of gait and mobility; M62.81 Muscle weakness (generalized); I10 Essential (primary) hypertension; E78.5 Hyperlipidemia, unspecified; I25.2 Old myocardial infarction
CPT/HCPCS: G0463; 71046; 99202

== ENCOUNTER → 2021-11-09 12:45 | Outpatient (CLI) | payer MEDICARE, SELFPAY ==
--- NOTE | 2021-11-09 12:59 | US_ITS ---
FINAL REPORT CLINICAL HISTORY: RT SIDE NECK MASS--palp soft tissue mass post scalp FINDINGS: US SOFT TISSUE Limited sonographic images were obtained of the posterior neck soft tissues. At the area of interest is an ovoid predominantly hypoechoic mass measuring 3.5 x 2.9 x 1.0 cm. 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 Reviewed, Interpreted and Dictated by Tigre Bond III, MD Transcribed by Adam Monsivais Authenticated by Tigre Bond III, MD on 11/10/2021 07:34:07 AM [facility]
== END ==
PROVIDERS: PCP Family Medicine; Visit Provider Nurse Practitioner Family
DX: R22.1 Localized swelling, mass and lump, neck (principal)
CPT/HCPCS: 76536

== ENCOUNTER → 2021-11-25 14:54 | Outpatient (CLI) | payer MEDICARE, SELFPAY | PROVIDERS: PCP Nurse Practitioner Family; Visit Provider Nurse Practitioner Family | DX: H54.3 Unqualified visual loss, both eyes (principal) ==

== ENCOUNTER → 2021-12-06 15:35 | Outpatient (CLI) | payer MEDICARE, SELFPAY ==
[2021-12-06 16:55] LABS: Erythrocyte Sedimentation Rate 16 mm/hr (0-20)
[2021-12-10 18:09] LABS: D001-IgE D pteronyssinus 0.28 kU/L (Class 0/I); D002-IgE D farinae 0.55 kU/L (Class I); E001-IgE Cat Dander <0.10 kU/L (Class 0); E005-IgE Dog Dander <0.10 kU/L (Class 0); E072-IgE Mouse Urine <0.10 kU/L (Class 0); G002-IgE Bermuda Grass <0.10 kU/L (Class 0); G006-IgE Timothy Grass 0.14 kU/L (Class 0/I); I006-IgE Cockroach, German 0.75 kU/L (Class II); Immunoglobulin E, Total 892 IU/mL (6-495); M001-IgE Penicillium chrysogen <0.10 kU/L (Class 0); M002-IgE Cladosporium herbarum <0.10 kU/L (Class 0); M003-IgE Aspergillus fumigatus <0.10 kU/L (Class 0); M006-IgE Alternaria alternata <0.10 kU/L (Class 0); T001-IgE Maple/Box Elder <0.10 kU/L (Class 0); T003-IgE Common Silver Birch <0.10 kU/L (Class 0); T006-IgE Cedar, Mountain 0.52 kU/L (Class I); T007-IgE Oak, White <0.10 kU/L (Class 0); T008-IgE Elm, American <0.10 kU/L (Class 0); T010-IgE Walnut <0.10 kU/L (Class 0); T011-IgE Maple Leaf Sycamore <0.10 kU/L (Class 0); T014-IgE Cottonwood <0.10 kU/L (Class 0); T015-IgE Ash, White <0.10 kU/L (Class 0); T022-IgE Pecan, Hickory <0.10 kU/L (Class 0); T070-IgE White Mulberry <0.10 kU/L (Class 0); W001-IgE Ragweed, Short 0.19 kU/L (Class 0/I); W011-IgE Thistle, Russian <0.10 kU/L (Class 0); W014-IgE Pigweed, Common <0.10 kU/L (Class 0); W018-IgE Sheep Sorrel 0.14 kU/L (Class 0/I)
== END ==
PROVIDERS: PCP Nurse Practitioner Family; Visit Provider Otolaryngology
DX: J30.9 Allergic rhinitis, unspecified (principal); R42 Dizziness and giddiness
CPT/HCPCS: 36415; 82785; 85651; 86003

== ENCOUNTER → 2021-12-16 14:32 | Outpatient (CLI) | payer MEDICARE, SELFPAY ==
--- NOTE | 2021-12-16 14:33 | CT_ITS ---
FINAL REPORT TECHNIQUE: Thin section axial CT images with coronal and sagittal reformats were performed through the neck. This study was performed with techniques to keep radiation doses as low as reasonably achievable (ALARA). Individualized dose reduction techniques using automated exposure control or adjustment of mA and/or kV according to the patient's size were employed. CLINICAL HISTORY: fatty tumor back neck-right side FINDINGS: The nasopharynx, oropharynx, hypopharynx and larynx are unremarkable. The thyroid is unremarkable. There is a fat attenuation mass in the right posterior upper neck subcutaneous tissues superficial to the musculature measuring 3.3 x 2.7 x 1.5 cm. 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 No other mass is identified. There is widespread degenerative change in the cervical spine. No adenopathy is identified. Limited images of the upper thorax are unremarkable. IMPRESSION: Mass as described, consistent with a lipoma. Reviewed, Interpreted and Dictated by Tigre Bond III, MD Transcribed by Honey Mejias Authenticated by Tigre Bond III, MD on 12/16/2021 04:55:13 PM [facility]
== END ==
PROVIDERS: PCP Nurse Practitioner Family; Visit Provider Otolaryngology
DX: D17.9 Benign lipomatous neoplasm, unspecified (principal)
CPT/HCPCS: 70490

== ENCOUNTER → 2021-12-27 11:43 | Outpatient (CLI) | payer MEDICARE, SELFPAY ==
[2021-12-27 11:57] LABS: Microscopic, Urine URINE MICROSCOPIC (MICROSCOPIC)
[2021-12-27 12:23] LABS: Chloride 105 mmol/L (98-107); Potassium 4.5 mmoL/L (3.5-5.1); Sodium 140 mmol/L (136-145)
[2021-12-27 12:26] LABS: Anion Gap 8.5 mEq/L (5-15); Blood Urea Nitrogen 13 mg/dl (9-20); Calcium 8.5 mg/dl (8.4-10.2); Carbon Dioxide 31 mmol/L (22.0-30.0); Estimated Glomerular Filt Rate 72 ml/min (>60); GFR (African American) 87 ML/MIN (>60); Glucose 100 mg/dl (74-100)
[2021-12-27 12:39] LABS: Basophils # 0.1 K/mm3 (0-0.2); Basophils % 0.9 % (0.1-2.0); Eosinophils # 1.1 K/mm3 (0.0-0.4); Eosinophils % 15.6 % (0.1-12.0); Hematocrit 48.1 % (42.0-52.0); Hemoglobin 15.4 g/dL (14.1-18.0); Lymphocytes # 0.7 K/mm3 (0.7-4.5); Lymphocytes % 10.4 % (10-50); Mean Corpuscular HGB Conc 31.9 g/dL (31.8-35.4); Mean Corpuscular Hemoglobin 33.5 pg (27.0-31.2); Mean Corpuscular Volume 104.8 fl (80-94); Mean Platelet Volume 8.8 fl (7.4-10.4); Monocytes # 0.3 K/mm3 (0.1-1.0); Monocytes % 4.9 % (1.7-9.3); Neutrophils # 4.7 K/mm3 (1.8-7.8); Neutrophils % 68.2 % (37.0-80.0); Platelet Count 317 K/mm3 (142-424); Red Blood Count 4.59 M/mm3 (4.60-6.20); White Blood Count 6.9 K/mm3 (4.8-10.8)
[2021-12-27 15:57] LABS: Appearance,Urine CLEAR (Clear); Bilirubin,Urine Negative (Negative); Blood, Urine Negative (Negative); Color,Urine YELLOW (Yellow); Glucose,Urine (UA) Negative (Negative); Ketones,Urine Negative (Negative); Leukocyte Esterase,Urine Negative (Negative); Nitrate,Urine Negative (Negative); PH,Urine 7.5 (5.0-8.5); Protein,Urine Negative (Negative); Urobilinogen,Urine 0.2 EU/dl (0.2)
[2021-12-28 12:14] LABS: Antiparietal Cell Antibody 1.2 Units (0.0-20.0)
== END ==
PROVIDERS: Nurse Practitioner Family; Surgery; PCP Nurse Practitioner Family; Visit Provider Family Medicine
DX: E53.8 Deficiency of other specified B group vitamins (principal); K40.90 Unilateral inguinal hernia, without obstruction or gangrene, not specified as recurrent
CPT/HCPCS: 36415; 80048; 81001; 83516; 85025; 86340

== ENCOUNTER → 2021-12-30 13:28 | Outpatient (CLI) | payer MEDICARE, SELFPAY ==
--- NOTE | 2021-12-30 13:47 | CT_ITS ---
FINAL REPORT TECHNIQUE: Thin section axial images were performed through the head and neck and a CTA protocol. MIP reconstruction sagittal and coronal images were submitted. This study was performed with techniques to keep radiation doses as low as reasonably achievable (ALARA). Individualized dose reduction techniques using automated exposure control or adjustment of mA and/or kV according to the patient's size were employed. CLINICAL HISTORY: dizziness, eval circulation, instabililty FINDINGS: CT HEAD WITHOUT There is mild age-appropriate atrophy. The ventricles are normal in size for the degree of atrophy. There is no extra-axial fluid or midline shift. There is no evidence of acute hemorrhage or mass. There is mucoperiosteal thickening in the right maxillary sinus. CTA head: The basilar artery is tortuous. The distal vertebral and distal internal carotid arteries have an unremarkable appearance. No aneurysm is seen. Major intracranial vessels are patent without significant stenosis. IMPRESSION: No evidence of aneurysm or stenosis. Reviewed, Interpreted and Dictated by Osmin Amaral MD Transcribed by Adam Monsivais Authenticated by Osmin Amaral MD on 12/30/2021 03:45:13 PM [facility]
--- NOTE | 2021-12-30 13:53 | CT_ITS ---
FINAL REPORT TECHNIQUE: Thin section axial CT with IV contrast supplemented with multiplanar reconstruction under CT angiogram protocol. This study was performed with techniques to keep radiation doses as low as reasonably achievable (ALARA). Individualized dose reduction techniques using automated exposure control or adjustment of mA and/or kV according to the patient''s size were employed. NASCET criteria was utilized during interpretation. CLINICAL HISTORY: eval circulation, dizziness, instability, abn exam FINDINGS: Aortic arch: Arch shows no significant narrowing. Great vessel origins are widely patent. Right carotid: No significant stenosis is seen of the cervical common or internal carotid artery. Left carotid: No significant stenosis is seen of the cervical common or internal carotid artery. Vertebral: Right vertebral artery is dominant. No significant stenosis is present. There are mild hypertrophic changes of degenerative disc disease throughout the cervical spine. There are moderate hypertrophic changes of the cervical facets. IMPRESSION: No significant stenosis or occlusion. Reviewed, Interpreted and Dictated by Osmin Amaral MD Transcribed by Adam Monsivais Authenticated by Osmin Amaral MD on 12/30/2021 03:45:12 PM [facility]
== END ==
PROVIDERS: PCP Nurse Practitioner Family; Visit Provider Nurse Practitioner Family
DX: E53.8 Deficiency of other specified B group vitamins (principal); H55.00 Unspecified nystagmus; H93.A1 Pulsatile tinnitus, right ear; M54.2 Cervicalgia; R25.8 Other abnormal involuntary movements; R26.9 Unspecified abnormalities of gait and mobility; R29.2 Abnormal reflex; R29.3 Abnormal posture; R51.9 Headache, unspecified
CPT/HCPCS: 70496; 70498; Q9967

== ENCOUNTER → 2022-01-10 15:29 | Outpatient (CLI) | payer MEDICARE, SELFPAY ==
[2022-01-10 15:37] LABS: Coronavirus 19, PCR Not Detected (NotDetected); Influenza A, PCR Not Detected (NotDetected); Influenza B, PCR Not Detected (NotDetected)
[2022-01-10 16:42] LABS: Basophils # 0.1 K/mm3 (0-0.2); Basophils % 1.5 % (0.1-2.0); Eosinophils # 0.5 K/mm3 (0.0-0.4); Eosinophils % 7.3 % (0.1-12.0); Hematocrit 43.8 % (42.0-52.0); Hemoglobin 14.2 g/dL (14.1-18.0); Lymphocytes # 0.6 K/mm3 (0.7-4.5); Mean Corpuscular HGB Conc 32.4 g/dL (31.8-35.4); Mean Corpuscular Hemoglobin 34.5 pg (27.0-31.2); Mean Corpuscular Volume 106.7 fl (80-94); Mean Platelet Volume 8.8 fl (7.4-10.4); Monocytes # 0.4 K/mm3 (0.1-1.0); Monocytes % 5.3 % (1.7-9.3); Neutrophils # 5.5 K/mm3 (1.8-7.8); Platelet Count 298 K/mm3 (142-424); Red Cell Distribution Width 13.1 % (11.5-17.5); White Blood Count 7.2 K/mm3 (4.8-10.8)
[2022-01-10 17:50] LABS: Anion Gap 9.1 mEq/L (5-15); Blood Urea Nitrogen 18 mg/dl (9-20); Calcium 8.8 mg/dl (8.4-10.2); Carbon Dioxide 28 mmol/L (22.0-30.0); Chloride 108 mmol/L (98-107); Estimated Glomerular Filt Rate 72 ml/min (>60); GFR (African American) 87 ML/MIN (>60); Glucose 95 mg/dl (74-100); Potassium 4.1 mmoL/L (3.5-5.1); Sodium 141 mmol/L (136-145)
== END ==
PROVIDERS: PCP Family Medicine; Visit Provider Nurse Practitioner Family
DX: E78.2 Mixed hyperlipidemia (principal); I10 Essential (primary) hypertension; I25.10 Atherosclerotic heart disease of native coronary artery without angina pectoris; R06.02 Shortness of breath; R55 Syncope and collapse; R94.31 Abnormal electrocardiogram [ECG] [EKG]; I63.9 Cerebral infarction, unspecified; Z01.812 Encounter for preprocedural laboratory examination; Z11.52 Encounter for screening for COVID-19
CPT/HCPCS: 36415; 80048; 85025; C9803; U0003; U0005

== ENCOUNTER 2022-01-12 08:28 | Day surgery (SDC) | payer MEDICARE, SELFPAY ==
[2022-01-12] VITALS (15 sets, daily range): BP systolic 91–168; BP diastolic 40–90; PULSE 43–79; RESP 16–18; O2SAT 92–98; BMI 21.7
--- NOTE | 2022-01-12 07:06 | IR_ITS ---
APPROVED REPORT Patient Location: Outpatient [employer]er: MONICA Martin RT (R) PROCEDURES Left heart catheterization Left ventriculogram Selective coronary angiogram INDICATION Typical angina pectoris Informed consent was obtained prior to the procedure. COMPLICATIONS None Estimated Blood Loss: Less than 10 mls TECHNIQUE One percent lidocaine used to anesthetize the right anterior aspect of the wrist. The right radial artery was accessed via the Seldinger technique. A 6 Tamazight sheath was placed in the right radial artery. 2.5 mg of verapamil, 800 mcg of nitroglycerin, 1mg Lidocaine and 5000 U Heparin were given through the arterial sheath. The papa catheter was also used to perform left heart catheterization, left ventriculogram and selective coronary angiogram. At the end of the procedure the sheath was removed good hemostasis was achieved using Traclet band, patient was transferred to the postop holding area in stable condition. 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 Treatment of endothelial dysfunction Electronically signed by : Puma Vaz MD 01/12/2022 12:50:27
== END 2022-01-12 16:04 | disposition home or self-care (01) ==
LOC: CATHLAB 08:30
PROVIDERS: PCP Family Medicine; Visit Provider Internal Medicine
DX: E78.2 Mixed hyperlipidemia (principal); I10 Essential (primary) hypertension; I25.118 Atherosclerotic heart disease of native coronary artery with other forms of angina pectoris; R06.02 Shortness of breath; R55 Syncope and collapse; R94.31 Abnormal electrocardiogram [ECG] [EKG]
CPT/HCPCS: 93458; 99152; C1725; C1769; J1644; Q9967

== ENCOUNTER 2022-01-16 09:45 | Emergency (ER) | payer MEDICARE, SELFPAY ==
[2022-01-16 09:46] VITALS: BP 125/80; PULSE 75; RESP 20; TEMP 37; O2SAT 96; BMI 18.6
--- NOTE | 2022-01-16 09:55 | ECG_ITS ---
APPROVED REPORT Exam: Resting ECG HR:64 bpm ECG Measurements Heart Rate 64 AXES WA 135 P 40 QRSd 84 QRS 3 QT 384 T 42 QTc 393 Conclusion SINUS RHYTHM LOW QRS VOLTAGE IN PRECORDIAL LEADS [QRS DEFLECTION < 1.0 mV IN CHEST LEADS] BORDERLINE ECG UNCONFIRMED REPORT Electronically signed by : Dennis Gomez MD 01/16/2022 15:57:41
--- NOTE | 2022-01-16 09:55 | HMH.EDGENADL ---
ED Disposition Clinical Impression: Nausea & vomiting Qualifiers: Vomiting type: unspecified Qualified Code(s): R11.2 - Nausea with vomiting, unspecified Disposition: Home, Self-Care Condition on Discharge: Good Instructions: DI for Diarrhea and Traveler's Diarrhea -- Adult, DI for Diarrhea and Traveler's Diarrhea -- Child, DI for Nausea -- Adult, DI for Nausea -- Child Prescriptions: Ondansetron [Zofran 4mg ODT] 4 mg PO QID 4 Days #16 tab Transmission Status: Received by [facility] #[id number] Referrals: Evelyn Kaur MD [Primary Care Provider] - - Critical Care Critical Care Time: No Attestation: On 01/16/22, the high probability of a clinically significant, sudden or life threatening deterioration of the following system(s) required my full and direct attention, intervention and personal management. The time I documented below is in addition to time spent performing reported procedures but includes the following listed in this critical care notation. Medical Decision Making - Medical Records Medical records reviewed: Yes: I reviewed the patient's medical records. - Jeancarlos Inquiry Pt receiving controlled substance: No Vital Signs: 01/16/22 09:46 01/16/22 10:31 01/16/22 14:25 Temperature 98.6 F 98 F Temperature Source Oral Oral Pulse Rate 67 78 Pulse Rate [Radial] 75 Respiratory Rate 20 16 16 Blood Pressure 119/71 127/74 Blood Pressure [Right Arm] 125/80 Blood Pressure Mean 99 Blood Pressure Mean [Right Arm] 95 Blood Pressure Position Sitting Blood Pressure Position [Right Arm] Sitting 02 Sat by Pulse Oximetry 96 96 Oxygen Delivery Method Room Air Room Air - Lab Data Lab results reviewed: Yes: I reviewed the patient's lab results. Lab Results 01/16/22 10:00: WBC 7.2, RBC 4.63, Hgb 15.3, Hct 47.2, MCV 101.9 H, MCH 33.1 H, MCHC 32.5, RDW 13.0, Plt Count 329, MPV 8.8, Neut % (Auto) 73.8, Lymph % (Auto) 9.8 L, [place] % (Auto) 6.5, Eos % (Auto) 7.4, Baso % (Auto) 2.5 H, Neut # (Auto) 5.3, Lymph # (Auto) 0.7, [place] # (Auto) 0.5, Eos # (Auto) 0.5 H, Baso # (Auto) 0.2 01/16/22 10:00: Sodium 140, Potassium 3.9, Chloride 107, Carbon Dioxide 29, Anion Gap 7.9, BUN 18, Creatinine 1.20, Estimated Creat Clear 36, Estimated GFR 58 L, Est GFR ( Amer) 70, Glucose 100, Calcium 9.1, Total Bilirubin 1.1, AST 23, ALT 13, Alkaline Phosphatase 73, Troponin I < 0.01, Total Protein 6.6, Albumin 3.8, Globulin 2.8, Albumin/Globulin Ratio 1.4 01/16/22 10:00: Lipase 52 01/16/22 11:15: Lactate 0.9 01/16/22 12:10: Urine Color Yellow, Urine Appearance Clear, Urine pH 6.0, Ur Specific [place] >= 1.030, Urine Protein Trace, Urine Glucose (UA) Negative, Urine Ketones Trace, Urine Blood Negative, Urine Nitrate Negative, Urine Bilirubin 1+ A, Urine Urobilinogen 0.2, Ur Leukocyte Esterase Negative, Urine RBC None, Urine WBC None, Ur Squamous Epith Cells Occasional, Calcium Oxalate Crystal Trace, Urine Bacteria 1+, Urine Mucus 2+ 01/16/22 13:00: Troponin I < 0.01 Result diagrams: 01/16/22 10:00 01/16/22 10:00 Orders (Tests/Meds): ED MEDICATIONS Discontinued Medications Generic Name Dose Route Start Last Admin Trade Name Kaushikq PRN Reason Stop Dose Admin Acetaminophen 1,000 mg 01/16/22 12:46 01/16/22 12:51 Acetaminophen 500mg Tab PO 01/16/22 12:47 1,000 mg ONCE ONE Administration Belladonna Alkaloids 60 ml 01/16/22 12:45 01/16/22 12:51 Gi Cocktail 60ml Udc PO 01/16/22 12:46 60 ml ONCE ONE Administration Famotidine 20 mg 01/16/22 12:45 01/16/22 12:51 Famotidine 20mg/2ml Vial IV 01/16/22 12:46 20 mg ONCE ONE Administration Lactated Ringer's 1,000 mls @ 999 mls/hr 01/16/22 10:30 01/16/22 10:20 Lactated Ringer's 1000 Ml Bag IV 01/16/22 11:30 999 mls/hr .Q1H1M CIRO Administration Ondansetron HCl 4 mg 01/16/22 10:16 01/16/22 10:20 Ondansetron 4mg/2ml Vial IV 01/16/22 10:17 4 mg ONCE ONE Administration Sodium Chloride 8 ml 01/16/22 12:45 [place]
--- NOTE | 2022-01-16 10:09 | XR_ITS ---
FINAL REPORT TECHNIQUE: Single view chest CLINICAL HISTORY: CHEST PAIN COMPARISON: 09/15/2021 FINDINGS: A single view of the chest was obtained. The heart and mediastinum are within normal limits. Are mild chronic changes. The lungs are otherwise clear. There is no pneumothorax. Osseous structures are unremarkable. IMPRESSION: No acute cardiopulmonary process. Reviewed, Interpreted and Dictated by Osmin Amaral MD Transcribed by Ana Paula Batista Authenticated by Osmin Amaral MD on 01/16/2022 11:05:[address] [facility]
[2022-01-16 10:17] LABS: Chloride 107 mmol/L (98-107)
[2022-01-16 10:18] LABS: Potassium 3.9 mmoL/L (3.5-5.1); Sodium 140 mmol/L (136-145)
[2022-01-16 10:20] LABS: Alanine Aminotransferase 13 U/L (12-78); Aspartate Amino Transferase 23 U/L (17-59); Blood Urea Nitrogen 18 mg/dl (9-20); Creatinine Clearance Estimated 36 mL/min (50-200); Estimated Glomerular Filt Rate 58 ml/min (>60); GFR (African American) 70 ML/MIN (>60)
[2022-01-16 10:21] LABS: Albumin Level 3.8 g/dl (3.5-5.0); Albumin/Globulin Ratio 1.4 (1.1-1.8); Alkaline Phosphatase 73 U/L (38-126); Anion Gap 7.9 mEq/L (5-15); Basophils # 0.2 K/mm3 (0-0.2); Basophils % 2.5 % (0.1-2.0); Bilirubin,Total 1.1 mg/dl (0.2-1.3); Calcium 9.1 mg/dl (8.4-10.2); Carbon Dioxide 29 mmol/L (22.0-30.0); Eosinophils # 0.5 K/mm3 (0.0-0.4); Eosinophils % 7.4 % (0.1-12.0); Globulin 2.8 g/dL (1.3-3.2); Glucose 100 mg/dl (74-100); Hematocrit 47.2 % (42.0-52.0); Hemoglobin 15.3 g/dL (14.1-18.0); Lymphocytes # 0.7 K/mm3 (0.7-4.5); Lymphocytes % 9.8 % (10-50); Mean Corpuscular HGB Conc 32.5 g/dL (31.8-35.4); Mean Corpuscular Hemoglobin 33.1 pg (27.0-31.2); Mean Corpuscular Volume 101.9 fl (80-94); Mean Platelet Volume 8.8 fl (7.4-10.4); Monocytes # 0.5 K/mm3 (0.1-1.0); Monocytes % 6.5 % (1.7-9.3); Neutrophils # 5.3 K/mm3 (1.8-7.8); Neutrophils % 73.8 % (37.0-80.0); Platelet Count 329 K/mm3 (142-424); Red Blood Count 4.63 M/mm3 (4.60-6.20); Total Protein,Serum 6.6 g/dl (6.3-8.2); White Blood Count 7.2 K/mm3 (4.8-10.8)
[2022-01-16 10:28] LABS: Lipase 52 U/L (23-300)
[2022-01-16 10:31] VITALS: BP 119/71; PULSE 67; RESP 16; O2SAT 96
[2022-01-16 10:39] LABS: Troponin I < 0.01 ng/ml (0.00-0.034)
[2022-01-16 11:29] LABS: Lactic Acid 0.9 mmol/L (0.7-2.1)
[2022-01-16 12:11] LABS: Microscopic, Urine URINE MICROSCOPIC (MICROSCOPIC)
[2022-01-16 12:13] LABS: Appearance,Urine CLEAR (Clear); Blood, Urine Negative (Negative); Color,Urine YELLOW (Yellow); Glucose,Urine (UA) Negative (Negative); Ketones,Urine TRACE (Negative); Leukocyte Esterase,Urine Negative (Negative); Nitrate,Urine Negative (Negative); Protein,Urine TRACE (Negative); Specific Gravity, Urine >= 1.030 (1.005-1.030); Urobilinogen,Urine 0.2 EU/dl (0.2)
--- NOTE | 2022-01-16 12:22 | PC.NURSE ---
PT STATES UNABLE TO PROVIDE A STOOL SPECIMEN AT THIS TIME
[2022-01-16 12:33] LABS: Bilirubin,Urine 1+ (Negative)
[2022-01-16 12:34] LABS: Bacteria,Urine 1+ /lpf; Calcium Oxalate Crystals,Urine Trace /lpf; Mucus,Urine 2+ /lpf; Squamous Epithelial Cell,Urine Occasional #/hpf (0-5)
[2022-01-16 14:05] LABS: Troponin I < 0.01 ng/ml (0.00-0.034)
[2022-01-16 14:25] VITALS: BP 127/74; PULSE 78; RESP 16; TEMP 36.6; O2SAT 98
== END 2022-01-16 14:27 | disposition home or self-care (01) ==
LOC: ER 09:50
PROVIDERS: Emergency Provider Emergency Medicine; PCP Family Medicine
DX: R11.2 Nausea with vomiting, unspecified (principal); R19.7 Diarrhea, unspecified; R10.13 Epigastric pain; I10 Essential (primary) hypertension; E78.5 Hyperlipidemia, unspecified; I25.2 Old myocardial infarction; Z87.891 Personal history of nicotine dependence
CPT/HCPCS: 71045; 80053; 81001; 83605; 83690; 84484; 85025; 93005; 96365; 96375; 99284; J2405

== ENCOUNTER → 2022-03-07 15:40 | Outpatient (CLI) | payer MEDICARE, SELFPAY ==
[2022-03-07 15:51] LABS: MANUAL DIFFERENTIAL MANUAL DIFFERENTIAL (MANUAL DIFF); Microscopic, Urine URINE MICROSCOPIC (MICROSCOPIC)
[2022-03-07 16:56] LABS: Chloride 104 mmol/L (98-107); Sodium 138 mmol/L (136-145)
[2022-03-07 16:57] LABS: Potassium 3.4 mmoL/L (3.5-5.1)
[2022-03-07 16:59] LABS: Blood Urea Nitrogen 16 mg/dl (9-20); Estimated Glomerular Filt Rate 81 ml/min (>60); GFR (African American) 98 ML/MIN (>60)
[2022-03-07 17:00] LABS: Anion Gap 8.4 mEq/L (5-15); Basophils # 0.1 K/mm3 (0-0.2); Basophils % 0.9 % (0.1-2.0); Calcium 8.4 mg/dl (8.4-10.2); Carbon Dioxide 29 mmol/L (22.0-30.0); Eosinophils # 0.8 K/mm3 (0.0-0.4); Eosinophils % 13.6 % (0.1-12.0); Glucose 122 mg/dl (74-100); Hematocrit 38.4 % (42.0-52.0); Hemoglobin 13.1 g/dL (14.1-18.0); Lymphocytes # 1.3 K/mm3 (0.7-4.5); Lymphocytes % 23.3 % (10-50); Mean Corpuscular HGB Conc 34.1 g/dL (31.8-35.4); Mean Corpuscular Hemoglobin 33.9 pg (27.0-31.2); Mean Corpuscular Volume 99.3 fl (80-94); Mean Platelet Volume 8.8 fl (7.4-10.4); Monocytes # 0.4 K/mm3 (0.1-1.0); Monocytes % 6.3 % (1.7-9.3); Neutrophils # 3.2 K/mm3 (1.8-7.8); Neutrophils % 55.9 % (37.0-80.0); Platelet Count 261 K/mm3 (142-424); Red Blood Count 3.86 M/mm3 (4.60-6.20); Red Cell Distribution Width 12.8 % (11.5-17.5); White Blood Count 5.7 K/mm3 (4.8-10.8)
[2022-03-07 18:05] LABS: Appearance,Urine CLEAR (Clear); Bilirubin,Urine Negative (Negative); Blood, Urine TRACE-I (Negative); Color,Urine YELLOW (Yellow); Glucose,Urine (UA) Negative (Negative); Ketones,Urine Negative (Negative); Leukocyte Esterase,Urine Negative (Negative); Nitrate,Urine Negative (Negative); Protein,Urine Negative (Negative); Specific Gravity, Urine >= 1.030 (1.005-1.030); Urobilinogen,Urine 0.2 EU/dl (0.2)
[2022-03-07 18:26] LABS: Bacteria,Urine 1+ /lpf; Calcium Oxalate Crystals,Urine 3+ /lpf
[2022-03-07 19:10] LABS: Eosinophils % 14 % (0-3); Lymphocytes % 22 % (10-50); Monocytes % 8 % (2-9); Neutrophils % 56 % (42-76); Platelet Estimate Normal; Total Cells Counted 100
== END ==
PROVIDERS: Visit Provider Surgery
DX: K40.90 Unilateral inguinal hernia, without obstruction or gangrene, not specified as recurrent (principal); Z01.812 Encounter for preprocedural laboratory examination; Z20.822 Contact with and (suspected) exposure to COVID-19
CPT/HCPCS: 36415; 80048; 81001; 85007; 85014; 85018; 85048; 85049; C9803; U0003; U0005

== ENCOUNTER 2022-03-09 09:12 | Day surgery (SDC) | payer MEDICARE, SELFPAY ==
[2022-03-09] VITALS (14 sets, daily range): BP systolic 103–141; BP diastolic 54–71; PULSE 68–79; RESP 14–18; TEMP 36.6–43; O2SAT 94–99
--- NOTE | 2022-03-09 09:35 | P.PN_ITS ---
[facility] Anesthesia Checklist - Patient Identification Patient Identification: Arm Band - Structural Data Admitted From: Home Planned Operative Procedure/s: Inguinal hernia repair Consent for Planned Operative Procedure(s) Verified: Yes - NPO Status Verified Time NPO: 00:00 - Airway Assessment C-Spine Mobility Assessed: Yes TMJ Mobility Assessed: Yes Dentition: Poor Dentition - Neurological Assessment Level of Consciousness: Awake Hx Seizures: No Numbness or tingling in extremities: No - Anesthesia Plan Anesthesia Risk discussed: Yes Anesthesia Plan: Verified ASA Class: III Anesthesia Type: General [facility] History I have reviewed the patient's past medical history: Yes Medical History: Reports:: Dementia, Hyperlipidemia, Hypertension, Kidney Stones, Migraine Denies:: Cancer, Diabetes Mellitus Type 1, Diabetes Mellitus Type 2, Internal Pacemaker, MRSA *Have you ever received a pneumonia vaccine?: Yes *Have you received a flu vaccine this season?: Yes Anesthesia experience/problems:: None Other Surgeries: Yes: Appendectomy, Cardiac Catheterization, Cholecystectomy, Coronary Stent, Hernia Repair. No: Pacemaker Amputation: No Fractures: No - *Social History Smoking Status: Former smoker Tobacco Type: smokeless tobacco Alcohol Intake: never Substance Use Type: denies use *Occupational Status:: retired Housing: house Household Members: spouse *Travel in the last 8 weeks: None Family Hx:: Diabetes, Heart Attack
--- NOTE | 2022-03-09 11:20 | SUR.OPER ---
LATE ENTRY 1058 16F coude inserted without difficulty. No urine return noted. Attempted to reposition catheter and urine/blood noted in catheter tubing and blood out of urethra outside of catheter tubing. Dr. Matias at bedside while catheter was inserted. Balloon was NOT inflated. Catheter was then removed and not replaced. Procedure continued without catheter in place. Dr. Matias requests that pt voids prior to being discharged. If pt is unable to void prior to discharge, Dr. Matias requests that urology be consulted.
--- NOTE | 2022-03-09 12:09 | HMH.OPNOTE ---
Date of procedure: 03/09/22 Pre-op Diagnosis:: Right inguinal hernia Post-op Diagnosis:: Same Procedure performed:: Open right inguinal hernia repair Surgeon:: Ever Matias MD PRESSED OR BLOWN GLASS WORKER:: Danial Villanueva Anesthesia: LMA Estimated blood loss (mL): 15 Operative findings:: Direct defect Operative note:: After informed consent was obtained the patient was taken to the operating room and placed in the supine position. General anesthesia with laryngeal mask airway was achieved. His abdomen and groin/scrotum were prepped and draped in a sterile fashion. After infiltration local anesthetic a right oblique groin incision was made with scalpel. The deep subcutaneous tissue was dissected with electrocautery through Bree's fascia to the level of the external aponeurosis. The external aponeurosis was sharply opened to the level of the external ring. The contents of the canal were carefully elevated. A direct defect was immediately encountered. No definitive indirect defect/sac noted. An extra-large PerFix plug was secured in the direct defect with interrupted Ethibond. The PerFix overlay was then secured to the shelving edge inferiorly and fascial margin superiorly with interrupted Ethibond. The wound was thoroughly irrigated. The external aponeurosis was reapproximated with running Vicryl suture. Bree's fascia was closed in a similar manner. Skin was then reapproximated with running 3-0 Monocryl Stratafix. Dressings were applied. The patient's anesthetic agents were reversed and he was transferred to recovery in stable condition after removal of his laryngeal mask airway. Condition: stable Disposition: PACU Specimens:: None Complications:: No immediate
--- NOTE | 2022-03-09 12:15 | P.PN_ITS ---
[facility] Anesthesia Record Part I Intake, IV Amount: 500 Estimated blood loss (mL): 15 Urine output (mL): 0 Blood Pressure: 122/56 SaO2: 98 Pulse Rate: 74 Respiratory Rate: 14 Temperature: 99.2 F Patient is:: Drowsy, Oral/Nasal airway Stable to PACU at:: 12:12
--- NOTE | 2022-03-09 14:24 | SUR.PHASEII ---
Report given to Opal Gonzales Rn. Pt luis fernando.
--- NOTE | 2022-03-09 14:25 | SUR.PHASEII ---
1415- pt assisted to the bathroom to void. while voiding, the patient had a few small clots and a small amount of blood in his urine. The pt c/o pain and burning during urination. pt assisted back to bed at this time and pain meds given.
--- NOTE | 2022-03-10 09:36 | P.PN_ITS ---
[facility] Anesthesia Record Part II Discharge Time: 12:42 Destination: Surgical Day Care (OP Surgery) PACU nurse assessment reviewed?: Yes Patient Condition:: Good Anesthesia Complications:: None Swallowing reflex intact?: Yes Cyanosis?: No Blood Pressure: 119/61 Pulse Rate: 77 Temperature: 98.3 F Mental Status: Alert & Oriented Pain level:: 0 Nausea and/or vomitting:: None Intake, IV Amount: 0
[2022-03-10 09:37] VITALS: BP 119/61; PULSE 77; TEMP 36.8
== END 2022-03-09 14:43 | disposition home or self-care (01) ==
LOC: OR 09:14
PROVIDERS: PCP Family Medicine; Visit Provider Surgery
DX: K40.90 Unilateral inguinal hernia, without obstruction or gangrene, not specified as recurrent (principal); F03.90 Unspecified dementia, unspecified severity, without behavioral disturbance, psychotic disturbance, mood disturbance, and anxiety; E78.5 Hyperlipidemia, unspecified; I10 Essential (primary) hypertension; I25.2 Old myocardial infarction; I25.10 Atherosclerotic heart disease of native coronary artery without angina pectoris; Z79.899 Other long term (current) drug therapy; Z88.0 Allergy status to penicillin; Z88.8 Allergy status to other drugs, medicaments and biological substances
CPT/HCPCS: 49505; 96374; J2405

== ENCOUNTER 2022-03-11 17:48 | Emergency (ER) | payer MEDICARE, SELFPAY ==
[2022-03-11 17:50] VITALS: BP 152/78; PULSE 62; RESP 16; TEMP 36.9; O2SAT 98
--- NOTE | 2022-03-11 18:31 | HMH.EDGENADL ---
ED Disposition Clinical Impression: Post-operative pain, Postoperative ecchymosis, Orthostasis Disposition: Home, Self-Care Condition on Discharge: Good Instructions: DI for Acute Pain -- Adult Additional Instructions: Recommend optimizing your pain medicine every 4-6 hours as prescribed you can augment with an extra 650 of Tylenol every 4-6 hours as well. You can also apply ice to the area which will help with the pain for bruising. Follow-up with your surgeon recommend calling on Sunday. Referrals: Evelyn Kaur MD [Primary Care Provider] - Time of Disposition: 19:26 - Critical Care Critical Care Time: No Attestation: On , the high probability of a clinically significant, sudden or life threatening deterioration of the following system(s) required my full and direct attention, intervention and personal management. The time I documented below is in addition to time spent performing reported procedures but includes the following listed in this critical care notation. Medical Decision Making - Medical Records Medical records reviewed: Yes: I reviewed the patient's medical records. - Jeancarlos Inquiry Pt receiving controlled substance: No Vital Signs: 03/11/22 17:50 Temperature 98.5 F Temperature Source Oral Pulse Rate [Radial] 62 Respiratory Rate 16 Blood Pressure [Right Arm] 152/78 H Blood Pressure Mean [Right Arm] 102 Blood Pressure Position [Right Arm] Sitting 02 Sat by Pulse Oximetry 98 Oxygen Delivery Method Room Air - Lab Data Lab Results 03/11/22 19:04: WBC 6.8, RBC 3.89 L, Hgb 12.8 L, Hct 39.0 L, MCV 100.2 H, MCH 33.0 H, MCHC 33.0, RDW 12.7, Plt Count 259, MPV 8.9, Neut % (Auto) 68.0, Lymph % (Auto) 17.0, Nuckolls % (Auto) 7.5, Eos % (Auto) 6.4, Baso % (Auto) 1.2, Neut # (Auto) 4.6, Lymph # (Auto) 1.2, Nuckolls # (Auto) 0.5, Eos # (Auto) 0.4, Baso # (Auto) 0.1 03/11/22 19:04: Sodium 137, Potassium 4.0, Chloride 103, Carbon Dioxide 30, Anion Gap 8.0, BUN 14, Creatinine 0.90, Estimated Creat Clear 45, Estimated GFR 81, Est GFR ( Amer) 98, Glucose 99, Calcium 8.7 Result diagrams: 03/11/22 19:04 03/11/22 19:04 Medical Decision Narrative: 81-year-old male who presents with postoperative pain from the right inguinal hernia repair as well as orthostatic dizziness. Patient is adamant could not be related to his Flomax or dehydration and refuses IV fluids at this time. The postop pain is consistent with ecchymosis to the area spreading through Kurtz's fascia there is no evidence of condensed hematoma or localized infection the incision is well-healing to this point postoperatively. We will obtain CBC and CMP to follow-up his hemoglobin level. Hemoglobin is stable no evidence of elevated white blood cell count. Patient is urinating well and will be counseled on pain regimen and discharged in good condition. General Adult HPI - General Chief complaint: PAIN Stated complaint: hernia post op 03/09/22, complication Time Seen by Provider: 03/11/22 18:32 Mode of Arrival: Ambulatory Source of Information: Patient Limitations: No Limitations - History of Present Illness HPI narrative: 81-year-old male who presents with postoperative pain from a right inguinal hernia repair 3 days ago. Patient states he is presenting because his pain has been a little worse than his left hernia repair and reports that he has noticed color change to the area. Color change even involves his penis. States that he is urinating appropriately did have some hematuria from a traumatic cath during the OR. Denies fever chills or body aches having normal bowel function. Has been using Lawrence at home every 4-6 hours. He is also endorsing postural dizziness that he states was present prior to the surgery and this morning he had an exacerbation of this event. - Related Data Home Medications Medication Instructions Recorded Confirmed Clopidogrel Bisulfate [Plavix 75mg 75 mg PO DAILY 02/11/18 02/22/22 Tab] Omeprazole [Ome
[2022-03-11 19:14] LABS: Basophils # 0.1 K/mm3 (0-0.2); Basophils % 1.2 % (0.1-2.0); Eosinophils # 0.4 K/mm3 (0.0-0.4); Eosinophils % 6.4 % (0.1-12.0); Hemoglobin 12.8 g/dL (14.1-18.0); Lymphocytes # 1.2 K/mm3 (0.7-4.5); Mean Corpuscular Volume 100.2 fl (80-94); Mean Platelet Volume 8.9 fl (7.4-10.4); Monocytes # 0.5 K/mm3 (0.1-1.0); Monocytes % 7.5 % (1.7-9.3); Neutrophils # 4.6 K/mm3 (1.8-7.8); Platelet Count 259 K/mm3 (142-424); Red Blood Count 3.89 M/mm3 (4.60-6.20); Red Cell Distribution Width 12.7 % (11.5-17.5); White Blood Count 6.8 K/mm3 (4.8-10.8)
[2022-03-11 19:18] LABS: Chloride 103 mmol/L (98-107); Sodium 137 mmol/L (136-145)
[2022-03-11 19:21] LABS: Blood Urea Nitrogen 14 mg/dl (9-20); Creatinine Clearance Estimated 45 mL/min (50-200); Estimated Glomerular Filt Rate 81 ml/min (>60); GFR (African American) 98 ML/MIN (>60)
[2022-03-11 19:22] LABS: Calcium 8.7 mg/dl (8.4-10.2); Carbon Dioxide 30 mmol/L (22.0-30.0); Glucose 99 mg/dl (74-100)
[2022-03-11 19:30] VITALS: BP 126/74; PULSE 78; RESP 16; TEMP 36.6; O2SAT 98
== END 2022-03-11 19:31 | disposition home or self-care (01) ==
PROVIDERS: Emergency Provider Student in an Organized Health Care Education/Training Program; PCP Family Medicine
DX: R42 Dizziness and giddiness (principal); S30.0XXA Contusion of lower back and pelvis, initial encounter; R31.9 Hematuria, unspecified; R94.31 Abnormal electrocardiogram [ECG] [EKG]; I10 Essential (primary) hypertension; I20.9 Angina pectoris, unspecified; I73.9 Peripheral vascular disease, unspecified; E78.5 Hyperlipidemia, unspecified; G43.909 Migraine, unspecified, not intractable, without status migrainosus; Z79.02 Long term (current) use of antithrombotics/antiplatelets; Z79.51 Long term (current) use of inhaled steroids; Z79.899 Other long term (current) drug therapy; Z88.0 Allergy status to penicillin; Z88.6 Allergy status to analgesic agent; Z88.8 Allergy status to other drugs, medicaments and biological substances; Z87.891 Personal history of nicotine dependence; Z98.890 Other specified postprocedural states; Z82.49 Family history of ischemic heart disease and other diseases of the circulatory system; Z83.3 Family history of diabetes mellitus
CPT/HCPCS: 80048; 85025; 99283

== ENCOUNTER → 2022-05-05 11:06 | Outpatient (CLI) | payer MEDICARE, SELFPAY ==
[2022-05-05 12:06] LABS: Activated Partial Thrombo Time 26.7 seconds (22.8-30.6); INR 1.11 (0.9-1.1); Prothrombin Time 12.4 seconds (10.1-12.5)
[2022-05-05 13:03] LABS: Vitamin B12 935 pg/mL (239-931)
== END ==
PROVIDERS: PCP Family Medicine; Visit Provider Nurse Practitioner Family
DX: I25.10 Atherosclerotic heart disease of native coronary artery without angina pectoris (principal); R79.89 Other specified abnormal findings of blood chemistry; R79.1 Abnormal coagulation profile
CPT/HCPCS: 36415; 82607; 85610; 85730

== ENCOUNTER → 2023-02-23 11:39 | Outpatient (CLI) | payer MEDICARE, SELFPAY ==
[2023-02-23 12:13] LABS: Blood Urea Nitrogen 20 mg/dl (9-20); Estimated Glomerular Filt Rate 64 ml/min (>60); GFR (African American) 78 ML/MIN (>60)
== END ==
PROVIDERS: PCP Otolaryngology; Visit Provider Nurse Practitioner
DX: R22.1 Localized swelling, mass and lump, neck (principal)
CPT/HCPCS: 36415; 82565; 84520

== ENCOUNTER 2023-03-10 18:31 | Emergency (ER) | payer MEDICARE, SELFPAY ==
[2023-03-10] VITALS (8 sets, daily range): BP systolic 109–155; BP diastolic 51–107; PULSE 55–69; RESP 18; TEMP 36.4–37.1; O2SAT 96–99; BMI 19.0
--- NOTE | 2023-03-10 18:41 | ECG_ITS ---
APPROVED REPORT Exam: Resting ECG HR:65 bpm ECG Measurements Heart Rate 65 AXES MD 132 P 58 QRSd 82 QRS 10 QT 397 T 56 QTc 408 Conclusion SINUS RHYTHM WITH OCCASIONAL SUPRAVENTRICULAR PREMATURE COMPLEXES BORDERLINE ECG UNCONFIRMED REPORT Electronically signed by : Dennis Gomez MD 03/11/2023 11:32:09
--- NOTE | 2023-03-10 18:44 | HMH.EDGENADL ---
Discharge Plan Disposition Patient Disposition: Home, Self-Care Chief Complaint: Weakness Prescriptions Prescriptions: No Action vitamin [id number] acid 2,500-400 mcg tablet,disintegrating 1 tab PO DAILY cyproheptadine 4 mg tablet 4 mg PO BID 30 Days Qty: 60 1RF fluticasone propionate [Flonase Allergy Relief] 50 mcg/actuation spray,suspension 2 spray NS DAILY Qty: 16 2RF Rx Instructions: administer into each nostril clopidogrel 75 MG tablet 75 mg PO DAILY tamsulosin 0.4 MG capsule 0.4 mg PO DAILY omeprazole 20 MG capsule,delayed release(DR/EC) 20 mg PO DAILY telmisartan 40 MG tablet 40 mg PO DAILY ondansetron 4 MG tablet,disintegrating 4 mg PO QID levocetirizine 5 MG tablet 5 mg PO DAILY Referrals Follow up/Referrals: Evelyn Kaur MD [Primary Care Provider] - See instructions Clinical Impressions Clinical Impression: Ataxia, Vertigo Instructions Patient Instructions: DI for Vertigo Discharge ED Provider: Cullen Jasmine General Adult HPI <Cullen Jasmine MD - Last Filed: 03/10/23 19:04> General Chief complaint: Weakness Stated complaint: SOB weakness, Hurts all over Time Seen by Provider: 03/10/23 18:44 History of Present Illness HPI narrative: Patient is a pleasant 82-year-old male presenting today with ataxia and balance problems and severe dizziness. He states this has been ongoing for several months is worse with any type of movement to the left to the right bending over but is also present at rest. He has very severe difficulty with focusing on anything and states that he even has rotary type sensation at rest. He states that this is severe and has been unrelenting. He states that he has significant chronic respiratory secretions and he has a very difficult time laying down flat CT scans have been attempted to be ordered in the past and he has been unable to successfully complete them. He also has not had any MRI of his brain he had no neuroimaging since this began. He went to an ENT doctor who did not make a definitive diagnosis according to the family but have not reviewed those notes yet. He denies any fevers or chills. Or any other symptoms. Occasionally is nauseated but not at the moment. Related Data Home Medications Medication Instructions Recorded Confirmed clopidogrel 75 mg tablet 75 mg PO DAILY Blood thinner 02/11/18 02/06/23 omeprazole 20 mg capsule,delayed 20 mg PO DAILY GERD 02/11/18 02/06/23 release tamsulosin 0.4 mg capsule 0.4 mg PO DAILY prostate 02/11/18 02/06/23 vitamin B12 2,500 mcg-folic acid 1 tab PO DAILY Supplement 12/15/21 02/06/23 400 mcg disintegrating tablet levocetirizine 5 mg tablet 5 mg PO DAILY . 03/09/22 02/06/23 ondansetron 4 mg disintegrating 4 mg PO QID Nausea & vomiting 03/09/22 02/06/23 tablet telmisartan 40 mg tablet 40 mg PO DAILY choolesterol 03/09/22 02/06/23 Previous Rx's Medication Instructions Recorded cyproheptadine 4 mg tablet 4 mg PO BID headache, drainage 30 12/15/21 days #60 tabs fluticasone propionate 50 2 spray intranasal DAILY postnasal 12/15/21 mcg/actuation nasal drainage #16 grams spray,suspension (Flonase Allergy Relief) Allergies Allergy/AdvReac Type Severity Reaction Status Date / Time aspirin [ASPIRIN] Allergy Mild Verified 02/06/23 14:31 codeine [CODEINE] Allergy Mild Verified 02/06/23 14:31 guaifenesin [GUAIFENESIN] Allergy Mild Verified 02/06/23 14:31 Penicillins [PENICILLINS] Allergy Mild Verified 02/06/23 14:31 [facility] <Cullen Jasmine MD - Last Filed: 03/10/23 19:04> [facility] Disclaimer: The information contained in this section may have been updated after the patient was seen, as this information can be updated by other users. Medical History (Updated 03/10/23 @ 19:00 by Cullen Jasmine MD) Abnormal EKG Atypical angina Claudication Neck mass Pulsatile tinnitus of right ear Syncope Social History (Reviewed 02/06/23 @ 14:31 by
--- NOTE | 2023-03-10 18:46 | PC.NURSE ---
DR LYLES AT BEDSIDE
--- NOTE | 2023-03-10 18:55 | CT_ITS ---
PROCEDURE INFORMATION: Exam: CT Head Without Contrast Exam date and time: 03/10/2023 7:23 PM Age: 82 years old Clinical indication: Other: Ataxia TECHNIQUE: Imaging protocol: Computed tomography of the head without contrast. Radiation optimization: All CT scans at this facility use at least one of these dose optimization techniques: automated exposure control; mA and/or kV adjustment per patient size (includes targeted exams where dose is matched to clinical indication); or iterative reconstruction. REPORTING DATA: Count of CT and Cardiac NM exams in prior 12 months: This patient has received 0 known CTs and 0 known cardiac nuclear medicine studies in the 12 months prior to the current study. COMPARISON: CT HEAD/BRAIN WO CON 28/08/2021 18:09 FINDINGS: Brain: Mild chronic brain volume loss and chronic small vessel ischemic changes. Cerebral ventricles: No ventriculomegaly. Paranasal sinuses: Visualized sinuses are unremarkable. No fluid levels. Mastoid air cells: Visualized mastoid air cells are well aerated. Bones/joints: Unremarkable. No acute fracture. Soft tissues: Unremarkable. IMPRESSION: No acute intracranial findings. If there is high clinical concern for acute infarction, consider MRI for further evaluation. ASSESSMENT: ASPECTS score (Benson Stroke Program Early CT Score) is 10.
--- NOTE | 2023-03-10 18:55 | CT_ITS ---
PROCEDURE INFORMATION: Exam: CTA Neck With Contrast Exam date and time: 03/10/2023 7:27 PM Age: 82 years old Clinical indication: Other: Ataxia TECHNIQUE: Imaging protocol: Computed tomographic angiography of the neck with contrast. 3D rendering (Not supervised by radiologist): MIP and/or 3D reconstructed images were created by the technologist. Radiation optimization: All CT scans at this facility use at least one of these dose optimization techniques: automated exposure control; mA and/or kV adjustment per patient size (includes targeted exams where dose is matched to clinical indication); or iterative reconstruction. Contrast material: ISOVUE; Contrast volume: 100 ml; Contrast route: INTRAVENOUS (IV); REPORTING DATA: Count of CT and Cardiac NM exams in prior 12 months: This patient has received 0 known CTs and 0 known cardiac nuclear medicine studies in the 12 months prior to the current study. COMPARISON: CT ANGIO NECK 30/12/2021 13:57 FINDINGS: Right common carotid artery: Mild atherosclerotic changes of the right carotid bifurcation with 0% stenosis of the internal carotid artery per NASCET criteria. Right internal carotid artery: No stenosis of the extracranial segment. No dissection or occlusion. Right external carotid artery: No occlusion or stenosis of the origin. Left common carotid artery: Mild atherosclerotic changes of the left carotid bifurcation with 0% stenosis of the internal carotid artery per NASCET criteria. Left internal carotid artery: No stenosis of the extracranial segment. No dissection or occlusion. Left external carotid artery: No occlusion or stenosis of the origin. Right vertebral artery: No stenosis. No dissection or occlusion. Left vertebral artery: No stenosis. No dissection or occlusion. Aorta: The aorta demonstrates moderate atherosclerotic disease. Paranasal sinuses: Right maxillary sinus retention cyst. Soft tissues: Normal. No significant soft tissue swelling. Bones/joints: No acute fracture. Other findings: Stigmata of old granulomatous disease. IMPRESSION: No significant stenosis of the carotid and vertebral arteries. REFERENCES: NASCET CRITERIA. The degree of stenosis in the cervical segment of the internal carotid artery is based on NASCET criteria. Normal is no stenosis. Mild is less than 50% stenosis. Moderate is 50-69% stenosis. Severe is 70% to 99% stenosis. Total occlusion is no detectable patent lumen.
--- NOTE | 2023-03-10 18:55 | CT_ITS ---
PROCEDURE INFORMATION: Exam: CTA Head With Contrast, Arteriography Exam date and time: 03/10/2023 7:27 PM Age: 82 years old Clinical indication: Other: Ataxia TECHNIQUE: Imaging protocol: Computed tomographic angiography of the head with contrast. Exam focused on the arteries. 3D rendering (Not supervised by radiologist): MIP and/or 3D reconstructed images were created by the technologist. Radiation optimization: All CT scans at this facility use at least one of these dose optimization techniques: automated exposure control; mA and/or kV adjustment per patient size (includes targeted exams where dose is matched to clinical indication); or iterative reconstruction. Contrast material: ISOVUE; Contrast volume: 100 ml; Contrast route: INTRAVENOUS (IV); REPORTING DATA: Count of CT and Cardiac NM exams in prior 12 months: This patient has received 0 known CTs and 0 known cardiac nuclear medicine studies in the 12 months prior to the current study. COMPARISON: CT ANGIO HEAD WITH W/O 30/12/2021 13:57 FINDINGS: ANTERIOR CIRCULATION: Right internal carotid artery: Intracranial segment is patent with no significant stenosis. No aneurysm. Right middle cerebral artery: No occlusion or significant stenosis. No aneurysm. Right anterior cerebral artery: No occlusion or significant stenosis. No aneurysm. Left internal carotid artery: Intracranial segment is patent with no significant stenosis. No aneurysm. Left middle cerebral artery: No occlusion or significant stenosis. No aneurysm. Left anterior cerebral artery: No occlusion or significant stenosis. No aneurysm. POSTERIOR CIRCULATION: Right vertebral artery: No occlusion or significant stenosis. No aneurysm. Left vertebral artery: No occlusion or significant stenosis. No aneurysm. Basilar artery: No occlusion or significant stenosis. No aneurysm. Right posterior cerebral artery: No occlusion or significant stenosis. No aneurysm. Left posterior cerebral artery: No occlusion or significant stenosis. No aneurysm. Brain: No definite mass, mass effect, or midline shift. Cerebral ventricles: No ventriculomegaly. Bones/joints: Unremarkable. No acute fracture. Soft tissues: Unremarkable. IMPRESSION: No significant intracranial arterial abnormality.
[2023-03-10 19:06] LABS: Chloride 104 mmol/L (98-107); Potassium 4.4 mmoL/L (3.5-5.1); Sodium 138 mmol/L (136-145)
[2023-03-10 19:08] LABS: Basophils % 0.3 % (0.1-2.0); Eosinophils # 0.8 K/mm3 (0.0-0.4); Eosinophils % 11.5 % (0.1-12.0); Hematocrit 39.7 % (42.0-52.0); Lymphocytes # 1.2 K/mm3 (0.7-4.5); Lymphocytes % 16.5 % (10-50); Mean Corpuscular HGB Conc 32.7 g/dL (31.8-35.4); Mean Corpuscular Hemoglobin 32.2 pg (27.0-31.2); Mean Corpuscular Volume 98.4 fl (80-94); Mean Platelet Volume 8.8 fl (7.4-10.4); Monocytes # 0.5 K/mm3 (0.1-1.0); Monocytes % 6.5 % (1.7-9.3); Neutrophils # 4.8 K/mm3 (1.8-7.8); Neutrophils % 65.3 % (37.0-80.0); Platelet Count 287 K/mm3 (142-424); Red Blood Count 4.04 M/mm3 (4.60-6.20); Red Cell Distribution Width 13.1 % (11.5-17.5); White Blood Count 7.3 K/mm3 (4.8-10.8)
[2023-03-10 19:09] LABS: Alanine Aminotransferase 16 U/L (12-78); Albumin Level 3.5 g/dl (3.5-5.0); Albumin/Globulin Ratio 1.3 (1.1-1.8); Alkaline Phosphatase 55 U/L (38-126); Anion Gap 11.4 mEq/L (5-15); Aspartate Amino Transferase 28 U/L (17-59); Bilirubin,Total 0.4 mg/dl (0.2-1.3); Blood Urea Nitrogen 19 mg/dl (9-20); Carbon Dioxide 27 mmol/L (22.0-30.0); Creatinine Clearance Estimated 40 mL/min (50-200); Estimated Glomerular Filt Rate 64 ml/min (>60); GFR (African American) 78 ML/MIN (>60); Globulin 2.8 g/dL (1.3-3.2); Total Protein,Serum 6.3 g/dl (6.3-8.2)
[2023-03-10 19:10] LABS: Calcium 8.4 mg/dl (8.4-10.2); Glucose 119 mg/dl (74-100); Magnesium 2.2 mg/dl (1.6-2.3); Phosphorous 2.9 mg/dl (2.5-4.5)
[2023-03-10 19:12] LABS: Activated Partial Thrombo Time 25.4 seconds (22.8-30.6); INR 1.12 (0.9-1.1)
--- NOTE | 2023-03-10 19:19 | PC.NURSE ---
Pt gone to RAD via stretcher
--- NOTE | 2023-03-10 19:57 | PC.NURSE ---
Dr. Jasmine at BS
[2023-03-10 20:56] LABS: C-Reactive Protein 0.5 mg/L (0-4)
--- NOTE | 2023-03-10 21:07 | PC.NURSE ---
Dr. Mcgregor at to update pt/family of results
[2023-03-10 21:09] LABS: Erythrocyte Sedimentation Rate 15 mm/hr (0-20)
[2023-03-10 21:12] LABS: Coronavirus 19, PCR Not Detected (NotDetected); Influenza A, PCR Not Detected (NotDetected); Influenza B, PCR Not Detected (NotDetected)
== END 2023-03-10 21:48 | disposition home or self-care (01) ==
PROVIDERS: Emergency Medicine; Emergency Provider Student in an Organized Health Care Education/Training Program; PCP Family Medicine
DX: R42 Dizziness and giddiness (principal); R27.0 Ataxia, unspecified; R06.02 Shortness of breath; I20.9 Angina pectoris, unspecified; Z87.891 Personal history of nicotine dependence
CPT/HCPCS: 70450; 70496; 70498; 80053; 83735; 84100; 85025; 85610; 85651; 85730; 86140; 87636; 93005; 96360; 99284; 99285; C9803; Q9967; U0003; U0005

== ENCOUNTER → 2023-05-10 12:52 | Outpatient (CLI) | payer MEDICARE, SELFPAY ==
[2023-05-10 14:12] LABS: Alanine Aminotransferase 17 U/L (12-78); Albumin Level 3.8 g/dl (3.5-5.0); Alkaline Phosphatase 70 U/L (38-126); Aspartate Amino Transferase 22 U/L (17-59); Bilirubin,Indirect 0.3 mg/dL (0.0-0.9); Bilirubin,Total 0.3 mg/dl (0.2-1.3); Bilirubin,Unconjugated 0.5 mg/dL (0.0-1.1); Cholesterol 209 mg/dl (140-200); HDL Cholesterol 69 mg/dl (40-60); Total Protein,Serum 6.7 g/dl (6.3-8.2); Triglycerides 103 mg/dl (30-150); VLDL Cholesterol 21 mg/dL (0-40)
[2023-05-10 14:29] LABS: Free T4 (Free Thyroxine) 1.01 ng/dl (0.78-2.19)
[2023-05-10 14:44] LABS: Thyroid Stimulating Hormone 1.09 uIU/mL (0.465-4.68)
== END ==
PROVIDERS: PCP Family Medicine; Visit Provider Internal Medicine
DX: E78.5 Hyperlipidemia, unspecified (principal); I10 Essential (primary) hypertension; I25.10 Atherosclerotic heart disease of native coronary artery without angina pectoris; I25.2 Old myocardial infarction; R06.00 Dyspnea, unspecified; R29.6 Repeated falls; R41.3 Other amnesia; R55 Syncope and collapse
CPT/HCPCS: 80061; 80076; 84439; 84443; 93270

== ENCOUNTER 2023-05-14 15:00 | Outpatient (RCR) | payer MEDICARE, SELFPAY ==
--- NOTE | 2023-04-30 15:32 | HMH.PTOPEV ---
PT Outpatient Evaluation Rehab PT Outpatient Evaluation Start: 04/30/23 13:54 Freq: Status: Active Protocol: Document 04/30/23 15:15 PHORNE (Rec: 04/30/23 15:30 PHORNE [id number]) E-signed By Harley Chaney, PT Outpatient Therapy Subjective History Subjective History This is the initial PT eval for Star Flowers, 82 yowm who presents with c/o feeling off balance and dizzy x ~ 4-5 yrs with insidious onset of symptoms. He reports he especially has difficulty with turining his head quickly to either side or raising up from a bent over position quickly. He describes his symptoms as I just want to keep going whatever way I move. Like if I raise up I just want to keep falling over backwards. He DOES NOT report any feeling of vertigo, but he does report some sensations of nausea. He has multiple co-morbid conditions that could contribute to these symptoms. 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 Chief Complaint Other Symptoms Relieved By Rest/Positioning Symptoms Aggravated By Physical Activity,Twisting Prior Functional Limitations None Current Functional Limitations Driving,Recreation Activity, Walking,Bending/Stooping Symptom Description Intermittent,Activity Dependent Level of pain today (0-10) 0 Balance Eval Hx of Falls Hx Falls Yes Number in last 6 months 10 Gait/Posture Asssessment General Gait Observation No Deviations/Normal Nystagmus Nystagmus Presence None Timed Up and Go Test 1. Is the Timed Up and Go test result > no or = to 12 seconds? 3. Is the Timed Up and Go Test result < yes 12 seconds? Oculomotor Gaze Oculomotor Gaze Nml: Vergence
== END 2023-05-14 15:05 | disposition home or self-care (01) ==
LOC: PT 15:00
PROVIDERS: PCP Nurse Practitioner Family; Visit Provider Nurse Practitioner Family
DX: R42 Dizziness and giddiness (principal); R29.3 Abnormal posture; R29.6 Repeated falls
CPT/HCPCS: 97112; 97163

== ENCOUNTER → 2023-06-18 11:11 | Outpatient (CLI) | payer MEDICARE, SELFPAY ==
--- NOTE | 2023-06-18 11:11 | NM_ITS ---
APPROVED REPORT Exam: Nuclear Stress Test Indication: HTN, HYPERLIPIDEMIA, TOB USE, FM HX, C.P., SOB, FATIGUE Patient Location: Outpatient Stress Tech: Nevin Nielson [place] Tech:Karo Pittman, ARRT RT (R)(N)(M) Ht: 5 ft 5 in Wt: 118 lbs HR: 56 bpm BP: 138/70 mmHg BSA: 1.58 m2 Rhythm: NSR TID: 1.13 BMI: 19.6 History: HTN, HYPERLIPIDEMIA, TOB USE, FM HX, C.P., SOB, FATIGUE PT COULD NOT LAY ON ABDOMEN FOR PRONE IMAGES FOLLOWING LEXISCAN ADMINISTRATION, THE PATIENT HAD COMPLAINTS OF CHEST PAIN. Procedure: Patient received 0.4 mg of intravenous Lexiscan, resting heart rate 56 bpm, resting blood pressure 138/70 mmHg, with Lexiscan maximum heart rate achieved was 80 bpm which is % of the maximum predicted heart rate and blood pressure was 116/53 mmHg. Cardiac Stress and Resting SPECT Images: Cardiac Stress and Resting SPECT images were obtained using technetium 99m Myoview 31.0 mCi stress and 10.48 mCi at rest. The patient could not lie on his abdomen. Therefore, prone stress imaging could not be obtained. Also, there is significant soft tissue overlap with the cardiac borders inferiorly in the raw images. This may affect the diagnostic interpretation of the study findings. Resting and stress imaging in supine position demontrate no definite fixed or reversible perfusion defects. Gated imaging demonstrates normal global and regional LV systolic function. LVEF is calculated at 57%. Conclusion: The patient could not lie on his abdomen. Therefore, prone stress imaging could not be obtained. Also, there is significant soft tissue overlap with the cardiac borders inferiorly in the raw images. This may affect the diagnostic interpretation of the study findings. Mild diaphragmatic attenuation is present. No definite fixed or reversible perfusion defects. Gated imaging demonstrates normal global and regional LV systolic function. LVEF is calculated at 57%. Electronically signed by : Sarita Pritchett MD 06/30/2023 17:07:34
--- NOTE | 2023-06-18 11:54 | CA_ITS ---
APPROVED REPORT EXAM: Comprehensive 2D, Doppler, and color-flow Echocardiogram Grease Buffer: Vanna Cheema RDCS Ht: 5 ft 2 in Wt: 116lbs BSA: 1.52 BP: 148/64 mmHg Indications: abn ekg,syncope,htn,hlp 2D Dimensions LVOT 1.87 cm (M/F) 1.5-2.5 M-Mode Dimensions RVDd 2.16 cm (0.9-2.6) LA Diam 3.50 cm (1.9-4.0) LVDd 4.67 cm (3.5-5.7) Ao Diam 3.40 cm (2.0-3.7) LVDs 3.13 cm (3.5-5.7) IVSd 0.82 cm (0.6-1.1) PWd 0.77 cm (0.6-1.1) EF (Teich) 61.50% FS 33.00% EDV (Teich) 100.80 mL ESV (Teich) 38.80 mL LV Diastology E Decel Time 233.00 (160-240 msec) E/A Ratio 1.4 MED E' 7.20 (< 7 cm/sec) E'/MED E' Ratio 10.67 (>14) LAT E' 10.90 (<10 cm/sec) E/LAT E' Ratio 7.05 (>14) Mitral Valve MV E Max Vasu. 77.00 (40-130 cm/s) MV A Velocity 54.00 (40-130 cm/s) E/A Ratio 1.44 MV Decel. Time 233.00 (160-240 ms) MV PHT 68.00 ms Tricuspid Valve TR P. Velocity 275.00 cm/s Left Ventricle The left ventricle is normal size. The left ventricular systolic function is normal. The left ventricular ejection fraction is within the normal range. There is normal left ventricular wall thickness. There is normal LV segmental wall motion. The left ventricular diastolic function is normal. LVEF is 60-65% Right Ventricle The right ventricle is normal size. The right ventricular systolic function is normal. Atria The left atrium size is normal. The right atrium size is normal. There is no Doppler evidence of interatrial shunt. Aortic Valve The aortic valve is mildly thickened. There is no aortic valvular stenosis. No aortic regurgitation is present. Mitral Valve The mitral valve is normal in structure. No evidence of mitral valve stenosis. Trace mitral regurgitation. Tricuspid Valve The tricuspid valve leaflets are thin and pliable. Mild tricuspid regurgitation. RVSP is 30-35 mmHg. Pulmonic Valve The pulmonary valve is normal in structure. Trace pulmonic regurgitation. Great Vessels The aortic root is normal in size. The ascending aorta is not well visualized. IVC is normal in size and collapses >50% with inspiration. Pericardium There is no pericardial effusion. Other Information Study Quality: Technically Difficult Conclusion This was a technically difficult study due to poor accoustic windows. Normal biventricular systolic function Mild TR Elevated RVSP 30-35 mmHg Electronically signed by : Sarita Pritchett, 06/21/2023 22:18:05
--- NOTE | 2023-06-18 13:23 | CA_ITS ---
APPROVED REPORT Exam: Pharmacologic Technologist: Nevin Nielson Ht: 5 ft 2 in Wt: 116 lbs BSA: 1.52 m2 HR: 56 bpm BP: 138/70 mmHg Rhythm: NSR Indications: Syncope, Shortness of Breath, Falls Medical History Medications: Vitamin B12,,,,, Flonase,,,,, Flonase,,,,, TAMSULOSIN,,,,, CloPIdogrel,,,,, Famotidine,,,,, Telmisartan,,,,, Levocetirizine,,,,, ONdansetron,,,,, Cyproheptadine,,,,, Stress Test Details Test: LEXISCAN HR Resting HR: 69 bpm Max Heart Rate (APMHR): 139 bpm Max HR Achieved: 84 bpm Target HR (85% APMHR): 118 bpm % of APMHR: 60 Recovery HR: 66 bpm BP Resting BP: 138.0/70.0 mmHg Max BP: 138.0/70.0 mmHg Recovery BP: 118.0/55.0 mmHg ECG Resting ECG: Normal sinus rhythm Stress ECG: No ST changes Arrhythmia: PVCs Clinical Exercise duration: 04:00 min Highest Stage Achieved: Exercise capacity: 1.0 METs Stress ECG Conclusion Symptoms: Chest pressure, shortness of air, fatigue Arrhythmias/Ectopy: PVCs ST-T Changes: No significant ST changes Conclusion: Unremarkable Lexiscan stress test. Myoview images are reported separately. Test Summary REST . . . . . . . Resting REST 09:47 . . 69 . 138/ 70 . . Stage 1 . . . . . . . Myoview Injected Stage 1 01:00 . . 78 . . . . Stage 2 01:00 . . 80 . . . . Stage 3 01:00 . . 71 . 116/ 53 . . Stage 4 01:00 . . 72 . 105/ 48 . Stop exercise at 04:00 RECOVERY 01:00 . . 77 . 105/ 49 . . RECOVERY 02:00 . . 71 . 105/ 49 . . RECOVERY 03:00 . . 74 . 101/ 53 . . RECOVERY 04:00 . . 72 . 98/ 62 . . RECOVERY 05:00 . . 68 . 98/ 62 . . RECOVERY 05:45 . . 70 . 118/ 55 . . Electronically signed by : Sarita Pritchett MD 06/30/2023 17:02:52
== END ==
PROVIDERS: PCP Family Medicine; Visit Provider Internal Medicine
DX: E78.5 Hyperlipidemia, unspecified (principal); I10 Essential (primary) hypertension; I25.10 Atherosclerotic heart disease of native coronary artery without angina pectoris; I25.2 Old myocardial infarction; R29.6 Repeated falls; R41.3 Other amnesia; R55 Syncope and collapse; R06.09 Other forms of dyspnea
CPT/HCPCS: 78452; 93017; 93306; A9502; J2785

== ENCOUNTER → 2023-07-11 12:27 | Outpatient (CLI) | payer MEDICARE, SELFPAY ==
[2023-07-11 13:16] LABS: Blood Urea Nitrogen 22 mg/dl (9-20); Estimated Glomerular Filt Rate 58 ml/min (>60); GFR (African American) 70 ML/MIN (>60)
--- NOTE | 2023-07-11 13:21 | CT_ITS ---
FINAL REPORT TECHNIQUE: Then section axial CT images of the chest were obtained with contrast. Three-D reformatted images were also obtained.This study was performed with techniques to keep radiation doses as low as reasonably achievable (ALARA). Individualized dose reduction techniques using automated exposure control or adjustment of mA and/or kV according to the patient''s size were employed. CLINICAL HISTORY: Shortness of breath COMPARISON: None FINDINGS: There is no evidence of pulmonary embolism. There is no evidence of thoracic aortic aneurysm or dissection. There is no evidence of mediastinal or hilar mass or adenopathy. No localized inflammatory process is seen within the lungs. There is a calcified granuloma on the left. There are several small pulmonary nodules including a posterior left lower lobe 5 mm nodule seen on image 53, most likely benign. Limited images of the upper abdomen are unremarkable. Post cholecystectomy. IMPRESSION: No evidence of pulmonary embolism. Reviewed, Interpreted and Dictated by Tigre Bond III, MD Transcribed by Julieth Marinelli Authenticated and [facility]
== END ==
PROVIDERS: PCP Family Medicine; Visit Provider Physician Assistant
DX: E78.5 Hyperlipidemia, unspecified (principal); I10 Essential (primary) hypertension; I25.10 Atherosclerotic heart disease of native coronary artery without angina pectoris; I25.2 Old myocardial infarction; L29.9 Pruritus, unspecified; R06.00 Dyspnea, unspecified; R29.6 Repeated falls; R41.3 Other amnesia; R55 Syncope and collapse
CPT/HCPCS: 36415; 71275; 82565; 84520; Q9967

== ENCOUNTER → 2023-07-26 13:54 | Outpatient (CLI) | payer MEDICARE, SELFPAY ==
--- NOTE | 2023-07-26 14:06 | CT_ITS ---
FINAL REPORT CLINICAL HISTORY: claudication FINDINGS: Thin section axial CT images of the abdomen, pelvis and lower extremities were obtained with contrast. Multiplanar reformatted images were also obtained and reviewed. ABDOMEN AND PELVIS: There is moderate vascular calcification. There is no abdominal aortic aneurysm or dissection. The celiac axis and proximal superior mesenteric artery are unremarkable. There is no renal artery stenosis. The inferior mesenteric artery is patent. There is no significant stenosis of the right common iliac artery or external right iliac artery. There is no significant stenosis of the left common iliac artery or external left iliac artery. The internal iliac arteries are patent. RIGHT LOWER EXTREMITY: There is no significant stenosis of the right common femoral or superficial femoral arteries. The right deep femoral artery is patent. The right popliteal artery is patent. There is three-vessel runoff to the distal lower leg. LEFT LOWER EXTREMITY: There is no significant stenosis of the left common femoral or superficial femoral arteries. The left deep femoral artery is patent. The left popliteal artery is patent. There is three-vessel runoff to the distal lower leg. There is colonic diverticulosis without evidence of diverticulitis. The prostate is significantly enlarged. IMPRESSION: No significant vascular disease. Significant enlargement of the prostate. Reviewed, Interpreted and Dictated by Tigre Bond III, MD Transcribed by Suni Benitez Authenticated and [facility]
== END ==
PROVIDERS: PCP Nurse Practitioner Family; Visit Provider Nurse Practitioner Family
DX: I10 Essential (primary) hypertension (principal); I25.10 Atherosclerotic heart disease of native coronary artery without angina pectoris; I73.9 Peripheral vascular disease, unspecified; R29.6 Repeated falls
CPT/HCPCS: 75635; Q9967

== ENCOUNTER 2023-08-11 08:03 | Emergency (ER) | payer MEDICARE, SELFPAY ==
[2023-08-11 08:04] VITALS: BP 147/74; PULSE 77; RESP 18; TEMP 36.8; O2SAT 99; BMI 20.7
--- NOTE | 2023-08-11 08:16 | PC.NURSE ---
Dr. Jasmine at BS for pt eval
--- NOTE | 2023-08-11 08:31 | HMH.EDGENADL ---
Discharge Plan Disposition Patient Disposition: Home, Self-Care Prescriptions Prescriptions: New triamcinolone acetonide 0.5 % ointment 1 applic topical BID 14 Days Qty: 430 0RF hydroxyzine pamoate [Vistaril] 25 mg capsule 25 mg PO Q8H PRN (Reason: itching) 7 Days Qty: 21 0RF No Action famotidine 20 mg tablet 20 mg PO DAILY clopidogrel 75 mg tablet 75 mg PO DAILY fluticasone propionate [Flonase Allergy Relief] 50 mcg/actuation spray,suspension 2 spray NS DAILY Qty: 16 2RF Rx Instructions: administer into each nostril ammonium lactate 12 % lotion 1 applic topical BID PRN (Reason: dry skin) 30 Days Qty: 400 0RF tamsulosin 0.4 MG capsule 0.4 mg PO DAILY telmisartan 40 MG tablet 40 mg PO DAILY ammonium lactate 12 % lotion 1 ea TOPICAL NEEDED PRN (Reason: Itching) Referrals Follow up/Referrals: Erin Juan APRN [Primary Care Provider] - See instructions Activity Restrictions/Add. Instructions Additional Instructions/Restrictions: Please take your hydroxyzine as needed for itching and apply the topical steroid as discussed. Additionally apply barrier cream ideally after bathing each day and at least twice a day to improve the moisturization of your skin. Lastly please follow-up with dermatology if you are not improving. Clinical Impressions Clinical Impression: Generalized pruritus, Atopic dermatitis Instructions Patient Instructions: DI for Skin Abscess Discharge ED Provider: Cullen Jasmine General Adult HPI General Chief complaint: Skin/Abscess/Foreign Body Stated complaint: ITCHING ALL OVER Time Seen by Provider: 08/11/23 08:19 Mode of Arrival: Ambulatory Source of Information: Patient Limitations: No Limitations Description of Symptoms (Recalled from ER Triage Doc. by RN): pt reports itching for a few days, states he saw Barb Juan on Sunday for this and was prescribed an ointment but states it isn't helping, states it started on his back but now it's on his legs, abdomen, and buttock area, no rash visualized on inspection, states he is miserable and hasn't been able to sleep History of Present Illness HPI narrative: Patient is an 82-year-old male presenting with generalized pruritus. States this began yesterday as started on his back its now radiated around to his abdomen and his buttock area. Denies any rash denies any obvious skin or mite investigation. States his house is very clean. Denies any history of any liver disease any changes in the skin color fevers chills any other symptoms. Saw his primary care doctor when this first began and was prescribed an aluminum topical ointment and states that had you put a flame thrower on my but it would have been any hotter. Since discontinued this medication. He has an appointment made with Dr. Handley with dermatology coming up soon. Related Data Home Medications Medication Instructions Recorded Confirmed tamsulosin 0.4 mg capsule 0.4 mg PO DAILY prostate 02/11/18 08/11/23 telmisartan 40 mg tablet 40 mg PO DAILY choolesterol 03/09/22 08/11/23 famotidine 20 mg tablet 20 mg PO DAILY 03/20/23 08/11/23 clopidogrel 75 mg tablet 75 mg PO DAILY 07/17/23 08/11/23 ammonium lactate 12 % lotion 1 ea topical NEEDED PRN Itching 08/11/23 08/11/23 Previous Rx's Medication Instructions Recorded fluticasone propionate 50 2 spray intranasal DAILY postnasal 07/17/23 mcg/actuation nasal drainage #16 grams spray,suspension (Flonase Allergy Relief) ammonium lactate 12 % lotion 1 applic topical BID PRN dry skin 08/07/23 30 days #400 grams hydroxyzine pamoate 25 mg capsule 25 mg PO Q8H PRN itching 7 days 08/11/23 (Vistaril) #21 caps triamcinolone acetonide 0.5 % 1 applic topical BID 14 days #430 08/11/23 topical ointment grams Allergies Allergy/AdvReac Type Severity Reaction Status Date / Time aspirin [ASPIRIN] Allergy Mild Verified 08/11/23 08:29 codeine [CODEINE] Allergy Mild Ve
[2023-08-11 08:59] LABS: Chloride 107 mmol/L (98-107); Potassium 4.3 mmoL/L (3.5-5.1); Sodium 141 mmol/L (136-145)
[2023-08-11 09:01] LABS: Blood Urea Nitrogen 16 mg/dl (9-20); Creatinine Clearance Estimated 37 mL/min (50-200); Estimated Glomerular Filt Rate 58 ml/min (>60); GFR (African American) 70 ML/MIN (>60)
[2023-08-11 09:02] LABS: Alanine Aminotransferase 16 U/L (12-78); Albumin/Globulin Ratio 1.3 (1.1-1.8); Alkaline Phosphatase 65 U/L (38-126); Anion Gap 8.3 mEq/L (5-15); Aspartate Amino Transferase 26 U/L (17-59); Bilirubin,Total 0.5 mg/dl (0.2-1.3); Calcium 8.5 mg/dl (8.4-10.2); Carbon Dioxide 30 mmol/L (22.0-30.0); Globulin 3.2 g/dL (1.3-3.2); Glucose 105 mg/dl (74-100); Total Protein,Serum 7.2 g/dl (6.3-8.2)
--- NOTE | 2023-08-11 09:10 | PC.NURSE ---
Dr. Jasmine at BS to update pt on POC
[2023-08-11 09:32] VITALS: BP 136/77; PULSE 87; RESP 18; TEMP 36.5
== END 2023-08-11 09:30 | disposition home or self-care (01) ==
PROVIDERS: Emergency Provider Student in an Organized Health Care Education/Training Program; PCP Nurse Practitioner Family
DX: L29.9 Pruritus, unspecified (principal); L20.9 Atopic dermatitis, unspecified; I73.9 Peripheral vascular disease, unspecified; I20.89 Other forms of angina pectoris; Z87.891 Personal history of nicotine dependence
CPT/HCPCS: 80053; 99283

== ENCOUNTER 2023-10-23 14:21 | Outpatient (POV) | payer MEDICARE, SELFPAY | END 2023-10-23 23:59 | disposition home or self-care (01) | LOC: SC 14:22 | PROVIDERS: PCP Nurse Practitioner Family; Visit Provider Dermatology | DX: Z00.00 Encounter for general adult medical examination without abnormal findings (principal) ==

== ENCOUNTER 2023-12-04 18:23 | Outpatient (CLI) | payer MEDICARE, SELFPAY ==
[2023-12-04 18:30] LABS: Basophils % 0.6 % (0.1-2.0); Eosinophils # 0.8 K/mm3 (0.0-0.4); Eosinophils % 17.3 % (0.1-12.0); Lymphocytes # 0.7 K/mm3 (0.7-4.5); Lymphocytes % 16.3 % (10-50); Mean Corpuscular HGB Conc 31.9 g/dL (31.8-35.4); Mean Corpuscular Hemoglobin 32.7 pg (27.0-31.2); Mean Corpuscular Volume 102.7 fl (80-94); Mean Platelet Volume 10.2 fl (7.4-10.4); Monocytes # 0.4 K/mm3 (0.1-1.0); Monocytes % 9.1 % (1.7-9.3); Neutrophils # 2.6 K/mm3 (1.8-7.8); Neutrophils % 56.7 % (37.0-80.0); Platelet Count 248 K/mm3 (142-424); Red Blood Count 4.28 M/mm3 (4.60-6.20); Red Cell Distribution Width 13.1 % (11.5-17.5); White Blood Count 4.5 K/mm3 (4.8-10.8)
[2023-12-04 19:28] LABS: Alanine Aminotransferase 11 U/L (12-78); Albumin Level 3.8 g/dl (3.5-5.0); Albumin/Globulin Ratio 1.5 (1.1-1.8); Alkaline Phosphatase 63 U/L (38-126); Amylase 51 U/L (30-110); Aspartate Amino Transferase 21 U/L (17-59); Bilirubin,Total 0.6 mg/dl (0.2-1.3); Blood Urea Nitrogen 17 mg/dl (9-20); Calcium 8.6 mg/dl (8.4-10.2); Carbon Dioxide 28 mmol/L (22.0-30.0); Chloride 104 mmol/L (98-107); Estimated Glomerular Filt Rate 53 ml/min (>60); GFR (African American) 64 ML/MIN (>60); Globulin 2.6 g/dL (1.3-3.2); Glucose 77 mg/dl (74-100); Lipase 92 U/L (23-300); Sodium 139 mmol/L (136-145); Total Protein,Serum 6.4 g/dl (6.3-8.2)
== END 2023-12-04 23:59 ==
LOC: LAB.DROPOF 18:23
PROVIDERS: PCP Nurse Practitioner Family; Visit Provider Nurse Practitioner Family
DX: R10.11 Right upper quadrant pain (principal); R11.0 Nausea
CPT/HCPCS: 80053; 82150; 83690; 85025

== ENCOUNTER 2023-12-26 12:27 | Outpatient (CLI) | payer MEDICARE, SELFPAY ==
--- NOTE | 2023-12-26 12:28 | CT_ITS ---
FINAL REPORT CLINICAL HISTORY: right sided abd pain x 1 mo COMPARISON: CT chest dated 07/11/2023, CTA dated 07/26/2023 FINDINGS: CT OF THE ABDOMEN AND PELVIS WITH CONTRAST Axial CT images of the abdomen and pelvis were obtained after the administration of IV contrast. Coronal and sagittal reformatted images were also obtained and reviewed. This study was performed with techniques to keep radiation doses as low as reasonably achievable (ALARA). Individualized dose reduction techniques using automated exposure control or adjustment of mA and/or kV according to the patient's size were employed. Abdomen: Small nodular opacities are noted in the lung bases bilaterally, which were also seen on the prior chest CT of July 2023.. The heart is normal in size. The liver has an unremarkable appearance, without evidence of mass or biliary ductal dilatation. The gallbladder is surgically absent. The spleen is unremarkable. No adrenal mass is present. The pancreas has an unremarkable appearance. There is a small left lower pole renal nonobstructing stone present. The aorta is normal in caliber. There is no free fluid or adenopathy. No mass or abnormal fluid collection is seen. Pelvis: The appendix is not well-visualized. There is wall thickening of the ascending and transverse portions of the colon, likely colitis. There is descending and sigmoid diverticulosis. The prostate is diffusely enlarged. The urinary bladder is remarkable for mild bladder wall thickening. Degenerative change of the lumbar spine is present. There are low-attenuation areas bilaterally in the lower pelvis, near the inguinal canals, that measures 30 mm on the right and 17 mm on the left, stable since the prior CT of July 2023. These are of uncertain etiology but likely represent postoperative change. There is no evidence of mass or adenopathy. There is no evidence of bowel obstruction. IMPRESSION: Wall thickening of the ascending and transverse portions of the colon, likely colitis. Low-attenuation areas in the lower pelvis bilaterally near the inguinal canals as described, of uncertain etiology but likely postoperative change. Small left kidney lower pole nonobstructing stone. Reviewed, Interpreted and Dictated by Tigre Bond III, MD Transcribed by Sharmin Aburto Authenticated and [facility]
[2023-12-26] MEDS: IOPAMIDOL-370 (76%);100ML BOTTLE 75 ML IV (13:33)
[2023-12-26] MEDS: SODIUM CHLORIDE 0.9% 10ML SYR (RAD ONLY) 10 ML IV (13:33)
== END 2023-12-26 23:59 ==
PROVIDERS: PCP Nurse Practitioner Family; Visit Provider Nurse Practitioner Family
DX: R10.11 Right upper quadrant pain (principal); R11.0 Nausea
CPT/HCPCS: 74177; Q9967

== ENCOUNTER 2024-04-29 16:14 | Outpatient (CLI) | payer MEDICARE, SELFPAY ==
[2024-04-29 15:10] LABS: Basophils # 0.1 K/mm3 (0-0.2); Basophils % 0.7 % (0.1-2.0); Eosinophils # 0.9 K/mm3 (0.0-0.4); Eosinophils % 12.1 % (0.1-12.0); Hematocrit 41.7 % (42.0-52.0); Hemoglobin 13.3 g/dL (14.1-18.0); Lymphocytes # 0.9 K/mm3 (0.7-4.5); Lymphocytes % 12.1 % (10-50); Mean Corpuscular HGB Conc 31.9 g/dL (31.8-35.4); Mean Corpuscular Hemoglobin 33.2 pg (27.0-31.2); Mean Corpuscular Volume 104.1 fl (80-94); Mean Platelet Volume 8.7 fl (7.4-10.4); Monocytes # 0.4 K/mm3 (0.1-1.0); Monocytes % 5.4 % (1.7-9.3); Neutrophils # 4.9 K/mm3 (1.8-7.8); Neutrophils % 69.6 % (37.0-80.0); Platelet Count 261 K/mm3 (142-424); Red Blood Count 4.01 M/mm3 (4.60-6.20); Red Cell Distribution Width 13.4 % (11.5-17.5); White Blood Count 7.1 K/mm3 (4.8-10.8)
[2024-04-29 16:38] LABS: Alanine Aminotransferase 15 U/L (12-78); Albumin Level 3.9 g/dl (3.5-5.0); Albumin/Globulin Ratio 1.3 (1.1-1.8); Alkaline Phosphatase 66 U/L (38-126); Anion Gap 11.1 mEq/L (5-15); Aspartate Amino Transferase 24 U/L (17-59); Bilirubin,Total 0.7 mg/dl (0.2-1.3); Blood Urea Nitrogen 17 mg/dl (9-20); Calcium 9.5 mg/dl (8.4-10.2); Carbon Dioxide 28 mmol/L (22.0-30.0); Chloride 105 mmol/L (98-107); Estimated Glomerular Filt Rate 53 ml/min (>60); GFR (African American) 64 ML/MIN (>60); Globulin 2.9 g/dL (1.3-3.2); Glucose 87 mg/dl (74-100); Potassium 5.1 mmoL/L (3.5-5.1); Sodium 139 mmol/L (136-145); Total Protein,Serum 6.8 g/dl (6.3-8.2)
[2024-04-29 17:07] LABS: Thyroid Stimulating Hormone 1.28 uIU/mL (0.465-4.68)
[2024-05-08 23:36] LABS: Vitamin K1 1.64 ng/mL (0.10-2.20)
[2024-05-26 15:27] LABS: Antinuclear Antibodies (ANA) NEGATIVE
== END 2024-04-29 23:59 | disposition home or self-care (01) ==
LOC: LAB.DROPOF 16:14
PROVIDERS: PCP Nurse Practitioner Family; Visit Provider Nurse Practitioner Family
DX: L29.9 Pruritus, unspecified (principal); R23.3 Spontaneous ecchymoses
CPT/HCPCS: 80050; 80053; 84443; 84597; 85025; 86038

== ENCOUNTER 2024-07-15 15:45 | Outpatient (POV) | payer MEDICARE, SELFPAY | END 2024-07-15 23:59 | disposition home or self-care (01) | LOC: SC 07-16 06:47 | PROVIDERS: Visit Provider Dermatology | DX: Z00.00 Encounter for general adult medical examination without abnormal findings (principal) ==

== ENCOUNTER 2024-09-01 16:24 | Outpatient (CLI) | payer MEDICARE, SELFPAY ==
--- NOTE | 2024-09-01 16:29 | XR_ITS ---
PROCEDURE INFORMATION: Exam: XR Chest Exam date and time: 09/01/2024 4:30 PM Age: 83 years old Clinical indication: Shortness of breath; Additional info: Pichardo TECHNIQUE: Imaging protocol: Radiologic exam of the chest. Views: 2 views. COMPARISON: CT ANGIO CHEST PE PROTOCOL 07/11/2023 1:50 PM FINDINGS: Lungs: Unremarkable. No consolidation. Pleural spaces: Unremarkable. No pleural effusion. No pneumothorax. Heart/Mediastinum: Unremarkable. No cardiomegaly. Bones/joints: Unremarkable. IMPRESSION: No acute findings.
[2024-09-01 17:01] LABS: Basophils # 0.1 K/mm3 (0-0.2); Basophils % 1.3 % (0.1-2.0); Eosinophils # 0.4 K/mm3 (0.0-0.4); Eosinophils % 4.8 % (0.1-12.0); Hematocrit 42.8 % (42.0-52.0); Lymphocytes # 0.7 K/mm3 (0.7-4.5); Lymphocytes % 7.6 % (10-50); Mean Corpuscular HGB Conc 32.8 g/dL (31.8-35.4); Mean Corpuscular Hemoglobin 32.4 pg (27.0-31.2); Mean Corpuscular Volume 98.8 fl (80-94); Mean Platelet Volume 8.7 fl (7.4-10.4); Monocytes # 0.6 K/mm3 (0.1-1.0); Monocytes % 6.3 % (1.7-9.3); Neutrophils # 7.2 K/mm3 (1.8-7.8); Platelet Count 335 K/mm3 (142-424); Red Blood Count 4.33 M/mm3 (4.60-6.20)
[2024-09-01 17:31] LABS: Chloride 104 mmol/L (98-107)
[2024-09-01 17:32] LABS: Sodium 139 mmol/L (136-145)
[2024-09-01 17:34] LABS: Alanine Aminotransferase 13 U/L (12-78); Albumin/Globulin Ratio 1.4 (1.1-1.8); Alkaline Phosphatase 70 U/L (38-126); Aspartate Amino Transferase 21 U/L (17-59); Bilirubin,Total 0.8 mg/dl (0.2-1.3); Blood Urea Nitrogen 19 mg/dl (9-20); Carbon Dioxide 28 mmol/L (22.0-30.0); Estimated Glomerular Filt Rate 49 ml/min (>60); GFR (African American) 59 ML/MIN (>60); Globulin 2.8 g/dL (1.3-3.2); Total Protein,Serum 6.8 g/dl (6.3-8.2)
[2024-09-01 17:35] LABS: Calcium 9.3 mg/dl (8.4-10.2); Glucose 99 mg/dl (74-100); Magnesium 2.1 mg/dl (1.6-2.3)
[2024-09-01 17:43] LABS: NT Pro Brain Natriuretic Pep. 727 pg/mL (0-450)
[2024-09-01 18:05] LABS: Thyroid Stimulating Hormone 0.98 uIU/mL (0.465-4.68)
[2024-09-01 18:09] LABS: Ferritin 59.9 ng/ml (17.9-464)
[2024-09-01 18:24] LABS: Vitamin B12 233 pg/mL (239-931)
== END 2024-09-01 23:59 | disposition home or self-care (01) ==
LOC: LAB 16:25
PROVIDERS: PCP Nurse Practitioner Family; Visit Provider Nurse Practitioner Family
DX: R06.09 Other forms of dyspnea (principal); R53.1 Weakness; E53.8 Deficiency of other specified B group vitamins; D64.9 Anemia, unspecified
CPT/HCPCS: 36415; 71046; 80053; 82607; 82728; 83735; 83880; 84443; 85025

== ENCOUNTER 2024-09-03 12:04 | Outpatient (CLI) | payer MEDICARE, SELFPAY | END 2024-09-03 23:59 | disposition home or self-care (01) | LOC: LAB 12:04 | PROVIDERS: PCP Nurse Practitioner Family; Visit Provider Nurse Practitioner Family | DX: R05.9 Cough, unspecified (principal) | CPT/HCPCS: 87070; 87205 ==

== ENCOUNTER 2024-09-12 14:44 | Outpatient (CLI) | payer MEDICARE, SELFPAY ==
--- NOTE | 2024-09-12 14:48 | CA_ITS ---
APPROVED REPORT EXAM: Comprehensive 2D, Doppler, and color-flow Echocardiogram Identity Management Consultant: Vanna Cheema RDCS Ht: 5 ft 2 in Wt: 122lbs BSA: 1.55 BP: 155/94 mmHg Indications: SOA,ABN EKG,KAY M-Mode Dimensions RVDd 1.78 cm (0.9-2.6) LA Diam 2.90 cm (1.9-4.0) LVDd 5.21 cm (3.5-5.7) LVDs 4.32 cm (3.5-5.7) IVSd 0.72 cm (0.6-1.1) PWd 0.81 cm (0.6-1.1) EF (Teich) 35.40% FS 17.10% EDV (Teich) 130.10 mL ESV (Teich) 84.00 mL LV Diastology E Decel Time 247 (160-240 msec) E/A Ratio 0.8 Mitral Valve MV E Max Vasu. 52.0 (40-130 cm/s) MV A Velocity 65.0 (40-130 cm/s) E/A Ratio 0.81 MV PHT 72.0 ms Left Ventricle The left ventricle is normal size. The left ventricular systolic function is normal. The left ventricular ejection fraction is within the normal range. There is normal left ventricular wall thickness. There is normal LV segmental wall motion. The left ventricular diastolic function is normal. LVEF is 55%. Right Ventricle The right ventricle is normal size. The right ventricular systolic function is normal. Atria The left atrium is mildly dilated. The right atrium size is normal. There is no Doppler evidence of interatrial shunt. Aortic Valve The aortic valve is normal in structure. There is no aortic valvular stenosis. No aortic regurgitation. Mitral Valve The mitral valve is normal in structure. No evidence of mitral valve stenosis. Trace mitral regurgitation. Tricuspid Valve Tricuspid valve is grossly normal in structure and function. Trace tricuspid regurgitation. There is insufficient TR jet to estimate RVSP. Pulmonic Valve The pulmonary valve is normal in structure. Trace pulmonic regurgitation. Great Vessels The aortic root is normal in size. The ascending aorta is not well visualized. IVC is normal in size and collapses >50% with inspiration. Pericardium There is no pericardial effusion. Other Information Study Quality: Fair Conclusion Normal biventricular systolic function. Mild LA dilation. No significant valvular stenosis or regurgitation. Electronically signed by : Sarita Pritchett MD 09/21/2024 16:38:22
== END 2024-09-12 23:59 | disposition home or self-care (01) ==
LOC: RT 14:44
PROVIDERS: PCP Nurse Practitioner Family; Visit Provider Nurse Practitioner Family
DX: R06.09 Other forms of dyspnea (principal); I51.7 Cardiomegaly
CPT/HCPCS: 93306

== ENCOUNTER 2024-10-16 11:41 | Emergency (ER) | payer MEDICARE, SELFPAY ==
[2024-10-16 12:05] VITALS: BP 121/78; PULSE 75; RESP 19; TEMP 36.9; O2SAT 98; BMI 23.3
--- NOTE | 2024-10-16 12:22 | EXP.UTC ---
Discharge Plan Disposition Patient Disposition: Home, Self-Care Condition: Good Prescriptions Prescriptions: No Action clopidogrel 75 mg tablet 18.75 mg PO DAILY clotrimazole-betamethasone 1-0.05 % lotion 1 applic topical BID 28 Days Qty: 120 0RF albuterol sulfate 90 mcg/actuation HFA aerosol inhaler 2 puff inhalation Q4-6H PRN (Reason: shortness of breath or wheezing) Qty: 6.7 0RF telmisartan 40 mg tablet 40 mg PO DAILY 10 Days Qty: 10 0RF tamsulosin 0.4 mg capsule See Rx Instructions .ROUTE .COMPLEX Qty: 90 0RF Dose Instruction: TAKE 1 CAPSULE BY MOUTH DAILY FOR PROSTATE Rx Instructions: TAKE 1 CAPSULE BY MOUTH DAILY FOR PROSTATE pantoprazole [Protonix] 40 mg tablet,delayed release (DR/EC) 40 mg PO DAILY Qty: 90 3RF famotidine 20 mg Tablet 20 mg PO DAILY diphenhydramine HCl [Benadryl] 25 mg Capsule 50 mg PO DAILY azelastine 137 mcg (0.1 %) [place],Non-Aerosol 2 spray INTRANASAL BID Rx Instructions: administer into each nostril Referrals Follow up/Referrals: Kenny Marrufo MD [Referring] - See instructions (Call office for appointment) Erin Juan APRN [Primary Care Provider] - See instructions Activity Restrictions/Add. Instructions Additional Instructions/Restrictions: Use topical ointment as directed Call your Family Doctor, the Pharmacy has requested a PA for your nasal spray she changed you too Make sure to shower daily and dry area well this will help and moisturize your with Eurcin or lubriderm Follow up with your Family Doctor Follow up with Dermatogy Clinical Impressions Clinical Impression: Skin problem Instructions Patient Instructions: DI for Itching Print Language Print Language: Azeri Discharge ED Provider: Esperanza Bautista [facility] General Stated complaint: itching all over body Mode of Arrival: Ambulatory Source of Information: Patient Limitations: No Limitations Time Seen by Provider: 10/16/24 12:30 Description of Symptoms (Recalled from Triage Doc. by RN): PATIENT C/O ITCHING ALL OVER HIS BODY FOR OVER 1 MONTH HEENT Symptoms (Recalled from RN notes): No Resp Symptoms (Recalled from RN notes): No Skin Symptoms (Recalled from RN notes): Yes MS Symptoms (Recalled from RN notes): No Functional Status (Recalled from RN notes): WNL History of Present Illness Provider Complaint: Patient states that he has been having itching all over since the fall States that his PCP give him some topical medication that worked better than anything that he has tried States also he is out of his nasal spray and wanted to get a refill on it Related Data Home Medications ?Medication ?Instructions ?Recorded ?Confirmed clopidogrel 75 mg tablet 18.75 mg PO DAILY 04/29/24 10/16/24 azelastine 137 mcg (0.1 %) nasal 2 spray intranasal BID 10/16/24 10/16/24 spray diphenhydramine HCl 25 mg capsule 50 mg PO DAILY 10/16/24 10/16/24 (Benadryl) famotidine 20 mg tablet 20 mg PO DAILY 10/16/24 10/16/24 Previous Rx's ?Medication ?Instructions ?Recorded clotrimazole-betamethasone 1 1 applic topical BID 4 weeks #120 06/17/24 %-0.05 % lotion mL telmisartan 40 mg tablet 40 mg PO DAILY HTN 10 days #10 tabs 07/23/24 tamsulosin 0.4 mg capsule See Rx Instructions .Route 09/03/24 .COMPLEX #90 caps pantoprazole 40 mg tablet,delayed 40 mg PO DAILY #90 tabs 09/22/24 release (Protonix) albuterol sulfate 90 mcg/actuation 2 puff inhalation Q4-6H PRN 10/10/24 aerosol inhaler shortness of breath or wheezing #6.7 grams Allergies Allergy/AdvReac Type Severity Reaction Status Date / Time aspirin (ASPIRIN) Allergy Mild Verified 10/10/24 13:07 codeine (CODEINE) Allergy Mild Verified 10/10/24 13:07 guaifenesin (GUAIFENESIN) Allergy Mild Verified 10/10/24 13:07 Penicillins (PENICILLINS) Allergy Mild Verified 10/10/24 13:07 Worker's Comp Is this a Worker's Comp case?: No [facility] Disclaimer: The information contained in this section may have been updated after the patient was seen, as this information can be updated by other users. Medical History Allergic rhinitis Dyspnea on exertion Chronic cough Neck mass Pulsatile tinnitus of right ear Atypical angina Syncope Claudication Abnormal EKG Surgical History Hx of cataract surgery History of colonoscopy History of hernia surgery Family History Other Heart attack Hypertension Social History Smoking Status: Former smoker tobacco type: smokeless tobacco alcohol intake: never substance use type: denies use current occupational status: retired Travel in the last 8 weeks: None household members: spouse housing: house caffeine: Yes Have you lived/traveled outside [place] in past 30 days?: No Contact w/someone who lives/traveled outside US past 30 days?: No Exposure to someone with infectious disease in past 14 days?: No Do you have a fever (greater than 100.4 F or 38 C)?: No Have you tested positive for COVID-19: No Exposed to someone with COVID-19 in past 14 days?: No Do you have a sore throat?: No Do you have a cough?: No Do you have any weakness?: No Do you have any diarrhea?: No Are you experiencing any unusual bleeding?: No Do you have any muscle aches/pain?: No Do you have any abdominal pain?: No Are you experiencing loss of taste or smell?: No ROS Obtained: Yes All systems reviewed & no additional complaints except as documented and Yes Systems reviewed as appropriate & no additional complaints except as documented Constitutional Constitutional: Reports system reviewed and no additional complaints, except as documented and Reports as per HPI ENT Ears, Nose, Mouth, and Throat: Reports system reviewed and no additional complaints, except as documented, Reports as per HPI, Reports nasal congestion and Reports nasal discharge Cardiovascular Cardiovascular: Reports system reviewed and no additional complaints, except as documented and Reports as per HPI Respiratory Respiratory: Reports system reviewed and no additional complaints, except as documented and Reports as per HPI Gastrointestinal Gastrointestingal: Reports system reviewed and no additional complaints, except as documented and as per HPI Musculoskeletal Musculoskeletal: Reports system reviewed and no additional complaints, except as documented and Reports as per HPI Integumentary/Breasts Skin/Breast: Reports system reviewed and no additional complaints, except as documented, Reports as per HPI and Reports pruritus Comments: itching on his back Neurologic Neurologic: Reports system reviewed and no additional complaints, except as documented and Reports as per HPI Physical Exam General General appearance: alert and in no apparent distress ENT ENT exam: Present mucous membranes moist Expanded ENT Exam Nose exam: Present other (clear drainage from nose); Absent sinus tenderness Respiratory Respiratory exam: Present normal lung sounds bilaterally; Absent respiratory distress or wheezes Cardiovascular Cardiovascular exam: Present regular rate and normal rhythm Neurological Exam Neurological exam: Present alert, oriented X3 and normal gait Skin Skin exam: Present other (mild redness and itching on his back for several months) Medical Decision Making Medical Records Screening: Per USPSTF and CDC recommendations, given the prevalence of disease in our region, it is our hospital?s policy to screen for HIV and viral Hepatitis for all patients aged 18 and over and those with ongoing risk factors. Jeancarlos Inquiry Pt receiving controlled substance: No Jeancarlos was queried for this patient: No Vital Signs: 10/16/24 12:05 Temperature 98.4 F Temperature Source Oral Pulse Rate [Left Brachial] 75 Respiratory Rate 19 Blood Pressure [Left Arm] 121/78 Blood Pressure Mean [Left Arm] 92 Blood Pressure Source [Left Arm] Automatic Cuff Blood Pressure Position [Left Arm] Sitting 02 Sat by Pulse Oximetry 98 Oxygen Delivery Method Room Air Medical Decision Narrative: Called Martita and authorized refill on his Clotimazole-betamethasone lotion x 1 time since he advised that it did help and will refer to dermatology patient had Hydroxyzine on hold and they will fill that also Natan has prescription for his new nasal spray and is awaiting PA from his PCP advised patient that they could fill it or wait on the PA and they did not want to fill it they would wait for the PA
[2024-10-16 12:59] VITALS: BP 121/78; PULSE 75; RESP 19; TEMP 36.9; O2SAT 98
== END 2024-10-16 13:06 | disposition home or self-care (01) ==
PROVIDERS: Emergency Provider Nurse Practitioner; PCP Nurse Practitioner Family
DX: L98.9 Disorder of the skin and subcutaneous tissue, unspecified (principal); L29.9 Pruritus, unspecified; R09.81 Nasal congestion
CPT/HCPCS: 99212; G0381

== ENCOUNTER 2024-11-18 10:56 | Outpatient (CLI) | payer MEDICARE, SELFPAY ==
--- NOTE | 2024-11-18 10:59 | US_ITS ---
FINAL REPORT CLINICAL HISTORY: RUQ abd pain COMPARISON: None FINDINGS: ULTRASOUND ABDOMEN There is fatty infiltration of the liver. Spleen has a normal sonographic appearance. Patient is status post cholecystectomy. No biliary ductal dilatation is identified. There is mild global renal parenchymal atrophy without evidence of mass or obstruction. Pancreas is not well visualized. IVC and aorta are grossly unremarkable. There is no obvious fluid collection. IMPRESSION: Fatty changes of the liver. Mild renal atrophy. Reviewed, Interpreted and Dictated by Jesus Arroyo MD Transcribed by Mae Phillips Authenticated and [facility]
== END 2024-11-18 23:59 | disposition home or self-care (01) ==
LOC: RAD 10:57
PROVIDERS: PCP Nurse Practitioner Family; Visit Provider Nurse Practitioner Family
DX: R10.11 Right upper quadrant pain (principal)
CPT/HCPCS: 76700

== ENCOUNTER 2024-12-03 12:02 | Outpatient (CLI) | payer MEDICARE, SELFPAY ==
[2024-12-03 13:37] LABS: Basophils # 0.1 K/mm3 (0-0.2); Basophils % 0.7 % (0.1-2.0); Eosinophils # 0.6 K/mm3 (0.0-0.4); Eosinophils % 7.2 % (0.1-12.0); Hematocrit 43.9 % (42.0-52.0); Hemoglobin 14.7 g/dL (14.1-18.0); Lymphocytes # 0.9 K/mm3 (0.7-4.5); Lymphocytes % 11.6 % (10-50); Mean Corpuscular HGB Conc 33.5 g/dL (31.8-35.4); Mean Corpuscular Hemoglobin 32.5 pg (27.0-31.2); Mean Corpuscular Volume 96.9 fl (80-94); Mean Platelet Volume 10.7 fl (7.4-10.4); Monocytes # 0.6 K/mm3 (0.1-1.0); Monocytes % 7.8 % (1.7-9.3); Neutrophils # 5.5 K/mm3 (1.8-7.8); Neutrophils % 72.3 % (37.0-80.0); Platelet Count 297 K/mm3 (142-424); Red Blood Count 4.53 M/mm3 (4.60-6.20); Red Cell Distribution Width 12.4 % (11.5-17.5); White Blood Count 7.6 K/mm3 (4.8-10.8)
[2024-12-03 14:21] LABS: Albumin Level 4.4 g/dl (3.5-5.0); Chloride 103 mmol/L (98-107); Potassium 5.2 mmoL/L (3.5-5.1); Sodium 139 mmol/L (136-145)
[2024-12-03 14:24] LABS: Alanine Aminotransferase 15 U/L (12-78); Albumin/Globulin Ratio 1.8 (1.1-1.8); Alkaline Phosphatase 75 U/L (38-126); Anion Gap 13.2 mEq/L (5-15); Aspartate Amino Transferase 21 U/L (17-59); Blood Urea Nitrogen 20 mg/dl (9-20); Calcium 9.4 mg/dl (8.4-10.2); Carbon Dioxide 28 mmol/L (22.0-30.0); Estimated Glomerular Filt Rate 42 ml/min (>60); GFR (African American) 50 ML/MIN (>60); Globulin 2.5 g/dL (1.3-3.2); Glucose 88 mg/dl (74-100); Total Protein,Serum 6.9 g/dl (6.3-8.2)
[2024-12-03 15:00] LABS: Ferritin 54.5 ng/ml (17.9-464)
[2024-12-03 16:10] LABS: Vitamin B12 > 1000 pg/mL (239-931)
== END 2024-12-03 23:59 | disposition home or self-care (01) ==
LOC: LAB.DROPOF 12-04 14:36
PROVIDERS: PCP Nurse Practitioner Family; Visit Provider Nurse Practitioner Family
DX: E61.1 Iron deficiency (principal); D64.9 Anemia, unspecified; E78.5 Hyperlipidemia, unspecified
CPT/HCPCS: 80053; 82607; 82728; 85025

== ENCOUNTER 2025-01-30 19:27 | Observation (INO) | payer MEDICARE, SELFPAY ==
[2025-01-30] VITALS (10 sets, daily range): BP systolic 86–115; BP diastolic 45–86; PULSE 86–120; RESP 13–24; TEMP 36.7–36.8; O2SAT 93–98; BMI 23.0; BMI 20.5
--- NOTE | 2025-01-30 19:43 | ED_ITS ---
Discharge Plan Disposition Chief Complaint: Nausea/Vomiting/Diarrhea Discharge ED Provider: Chio Christie General Adult HPI <JING Mckeon - Last Filed: 01/30/25 21:50> General Chief complaint: Nausea/Vomiting/Diarrhea Stated complaint: Diarrhea,sinus problems Time Seen by Provider: 01/30/25 19:43 Mode of Arrival: Ambulatory Source of Information: Patient and Significant Other Description of Symptoms (Recalled from ER Triage Doc. by RN): Pt presents with c/o productive cough with brown sputum that began today with diarrhea. Pt denies fevers at home, denies being around sick contacts. History of Present Illness HPI narrative: Patient presents for evaluation of initially cough and diarrhea. He states that the diarrhea has been going on for several days. He also actually has had coughing that caused him to vomit and he had dark brown emesis. He is on Plavix. He denies shortness of breath fever chills dysuria hematochezia or melena knowingly. He reports that his abdomen has been also tender but nonfocally so. Patient states that his diarrhea is just brown water running out of me . Related Data Home Medications ?Medication ?Instructions ?Recorded ?Confirmed clopidogrel 75 mg tablet 18.75 mg PO DAILY 04/29/24 12/09/24 diphenhydramine HCl 25 mg capsule 50 mg PO DAILY 10/16/24 12/09/24 (Benadryl) famotidine 20 mg tablet 20 mg PO DAILY 10/16/24 12/09/24 Previous Rx's ?Medication ?Instructions ?Recorded telmisartan 40 mg tablet 40 mg PO DAILY HTN 10 days #10 tabs 07/23/24 pantoprazole 40 mg tablet,delayed 40 mg PO DAILY #90 tabs 09/22/24 release (Protonix) albuterol sulfate 90 mcg/actuation 2 puff inhalation Q4-6H PRN 10/10/24 aerosol inhaler shortness of breath or wheezing #6.7 grams tamsulosin 0.4 mg capsule See Rx Instructions .Route 11/05/24 .COMPLEX #90 caps levocetirizine 5 mg tablet See Rx Instructions .Route 12/09/24 .COMPLEX #90 tabs azelastine 137 mcg (0.1 %) nasal 2 spray intranasal BID #30 mL 12/24/24 spray clotrimazole-betamethasone 1 See Rx Instructions .Route 12/24/24 %-0.05 % lotion .COMPLEX #120 mL hydroxyzine HCl 25 mg tablet 25 mg PO HS PRN itching #90 tabs 12/24/24 Allergies Allergy/AdvReac Type Severity Reaction Status Date / Time aspirin (ASPIRIN) Allergy Mild Verified 12/09/24 14:13 codeine (CODEINE) Allergy Mild Verified 12/09/24 14:13 guaifenesin (GUAIFENESIN) Allergy Mild Verified 12/09/24 14:13 Penicillins (PENICILLINS) Allergy Mild Verified 12/09/24 14:13 PFS <Urbano Moore PA - Last Filed: 01/30/25 21:50> [facility] Disclaimer: The information contained in this section may have been updated after the patient was seen, as this information can be updated by other users. 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 Syncope Claudication Abnormal EKG Surgical History Hx of cataract surgery History of colonoscopy History of hernia surgery Family History Other Heart attack Hypertension Social History Smoking Status: Never smoker alcohol intake: never substance use type: denies use current occupational status: retired Travel in the last 8 weeks: None household members: spouse housing: house caffeine: Yes Have you lived/traveled outside US in past 30 days?: No Contact w/someone who lives/traveled outside US past 30 days?: No Exposure to someone with infectious disease in past 14 days?: No Do you have a fever (greater than 100.4 F or 38 C)?: No Have you tested positive for COVID-19: No Exposed to someone with COVID-19 in past 14 days?: No Do you have a sore throat?: No Do you have a cough?: No Do you have any weakness?: No Do you have any diarrhea?: No Are you experiencing any unusual bleeding?: No Do you have any muscle aches/pain?: No Do you have any abdominal pain?: No Are you experiencing loss of taste or smell?: No Other Medical History Have you received the Flu Vaccine for this season: Yes Have you received the Pneumonia Vaccine: No <JING Mckeon - Last Filed: 01/30/25 21:50> ROS Obtained: Yes Systems reviewed as appropriate & no additional complaints except as documented Physical Exam <JING Mckeon - Last Filed: 01/30/25 21:50> General General appearance: alert and in no apparent distress Respiratory Respiratory exam: Present normal lung sounds bilaterally Cardiovascular Cardiovascular exam: Present regular rate Neurological Exam Neurological exam: Present alert and oriented X3 Medical Decision Making <JING Mckeon - Last Filed: 01/30/25 21:50> Medical Records Medical records reviewed: Yes I reviewed the patient's medical records. Screening: Per USPSTF and CDC recommendations, given the prevalence of disease in our region, it is our hospital?s policy to screen for HIV and viral Hepatitis for all patients aged 18 and over and those with ongoing risk factors. Jeancarlos Inquiry Pt receiving controlled substance: No Vital Signs: 01/30/25 19:37 01/30/25 20:01 01/30/25 20:30 Temperature 98.3 F Temperature Source Oral Pulse Rate 95 H 89 Pulse Rate [Radial] 95 H Respiratory Rate 18 17 13 Blood Pressure 101/61 L 100/60 L Blood Pressure [Right Arm] 113/69 Blood Pressure Mean [Right Arm] 83 Blood Pressure Position Blood Pressure Position [Right Arm] Sitting 02 Sat by Pulse Oximetry 98 97 97 Oxygen Delivery Method Room Air 01/30/25 21:30 01/30/25 21:39 01/30/25 22:00 Temperature Temperature Source Pulse Rate 92 H 92 H 99 H Pulse Rate [Radial] Respiratory Rate 19 24 15 Blood Pressure 86/52 L 92/45 L 109/86 L Blood Pressure [Right Arm] Blood Pressure Mean [Right Arm] Blood Pressure Position Blood Pressure Position [Right Arm] 02 Sat by Pulse Oximetry 93 L 95 96 Oxygen Delivery Method 01/30/25 22:32 Temperature 98.3 F Temperature Source Oral Pulse Rate 87 Pulse Rate [Radial] Respiratory Rate 18 Blood Pressure 115/66 Blood Pressure [Right Arm] Blood Pressure Mean [Right Arm] Blood Pressure Position Sitting Blood Pressure Position [Right Arm] 02 Sat by Pulse Oximetry Oxygen Delivery Method Room Air Lab Data Lab results reviewed: Yes I reviewed the patient's lab results. Lab Results 01/30/25 19:49: WBC 12.9 H, RBC 4.41 L, Hgb 14.0 L, Hct 43.1, MCV 97.7 H, MCH 31.7 H, MCHC 32.5, RDW 13.0, Plt Count 326, MPV 10.9 H, Neut % (Auto) 84.8 H, L ymph % (Auto) 4.2 L, Faulkner % (Auto) 8.7, Eos % (Auto) 1.6, Baso % (Auto) 0.3, N eut # (Auto) 11.0 H, Lymph # (Auto) 0.5 L, Faulkner # (Auto) 1.1 H, Eos # (Auto) 0.2, Baso # (Auto) 0.0, Total Counted 100, Neutrophils % (Manual) 87 H, L ymphocytes % (Manual) 1 L, Monocytes % (Manual) 9, Eosinophils % (Manual) 3, Platelet Estimate Normal, RBC Morphology Normal, PT 12.2, INR 1.10, Sodium 139, Potassium 4.4, Chloride 106, Carbon Dioxide 23, Anion Gap 14.4, BUN 29 H, C reatinine 1.80 H, Estimated Creat Clear 26, Estimated GFR 36 L, Est GFR ( Amer) 44 L, Glucose 145 H, Calcium 9.0, Magnesium 2.0, Total Bilirubin 0.7, AST 29, ALT 19, Alkaline Phosphatase 67, Total Protein 7.5, Albumin 4.4, Globulin 3.1, Albumin/Globulin Ratio 1.4, Procalcitonin 0.164, HCV Ab SHANON w/Rflx PCR Qn Negative, HIV Ag/Ab Combo Qual Negative 01/30/25 19:59: Stool Occult Blood Positive A 01/30/25 20:44: Urine Color Dark yellow, Urine Appearance Slightly cloudy, Urine pH 5.5, Ur Specific [place] >= 1.030, Urine Protein 1+ A, Urine Glucose (UA) Negative, Urine Ketones Trace, Urine Blood Negative, Urine Nitrate Negative, U rine Bilirubin 2+ A, Urine Urobilinogen 0.2, Ur Leukocyte Esterase Negative, Urine RBC None, Urine WBC 3-5, Ur Squamous Epith Cells 5-10, Urine Bacteria 1+, Urine Mucus 3+ 01/30/25 21:58: Blood Type A Positive 01/30/25 19:49 01/30/25 19:49 Orders (Tests/Meds): ED MEDICATIONS Generic Name Dose Route Start Last Admin Trade Name Tesha PRN Reason Stop Dose Admin Sodium Chloride 10 ml 01/30/25 20:58 01/30/25 21:08 Sodium Chloride 0.9% 10ml Syr (Rad Only) IV 03/01/25 20:57 10 ml NEEDED PRN Administration Maintain IV Site Discontinued Medications Generic Name Dose Route Start Last Admin Trade Name Tesha PRN Reason Stop Dose Admin Sodium Chloride 1,000 mls @ 999 mls/hr 01/30/25 20:08 01/30/25 20:26 Sod Chlor 0.9% 1000ml Bag IV 01/30/25 21:08 999 mls/hr .Q1H1M ONE Administration Pantoprazole Sodium 80 mg/ 100 mls @ 10 mls/hr 01/30/25 21:30 01/30/25 22:09 Sodium Chloride IV 02/02/25 21:29 10 mls/hr .Q10H CIRO Administration Iopamidol 80 ml 01/30/25 20:58 01/30/25 20:59 Iopamidol-370 (76%);100ml Bottle IV 01/30/25 20:59 80 ml ONCE ONE Administration Ondansetron HCl 4 mg 01/30/25 20:08 01/30/25 20:26 Ondansetron 4mg/2ml Vial IV 01/30/25 20:09 4 mg ONCE ONE Administration Sodium Chloride 50 ml 01/30/25 20:58 01/30/25 20:59 0.9 % Sodium Chloride 50 Ml Vial IV 01/30/25 20:59 50 ml ONCE ONE Administration ORDERS Category Date Time Status Type and Screen Stat BBK 01/30/25 21:[address] angio abd/pel - GI Bleed Stat Cat Scan 01/30/25 20:48 Completed CBC w/Auto Diff [Complete Blood Count Auto Diff] Stat Lab 01/30/25 19:49 Completed CMP [Comprehensive Metabolic Panel] Stat Lab 01/30/25 19:49 Completed HIV Combo Stat Lab 01/30/25 19:49 Completed Hepatitis C Ab Qual. W/ RFX Stat Lab 01/30/25 19:49 Completed INR [Prothrombin Time INR] Stat Lab 01/30/25 19:49 Completed Magnesium Stat Lab 01/30/25 19:49 Completed Occult Blood,Stool Stat Lab 01/30/25 19:59 Completed Procalcitonin Stat Lab 01/30/25 19:49 Completed UA [Urinalysis and Microscopic] Stat Lab 01/30/25 20:44 Completed Urine Culture Routine Micro 01/30/25 20:44 Received Medical Decision Narrative: In summary patient is a 84-year-old male who presents to the emergency department for evaluation of coffee-ground emesis nausea vomiting diarrhea. Patient is initially normotensive with a blood pressure 113/69 heart rate 95 with normal sinus rhythm at bedside monitor breathing 18 times minute satting at 98% on room air upon arrival, afebrile at 98.3. Physical exam reveals clear breath sounds with no increased work of breathing or adventitious sounds, abdomen is soft mildly diffusely tender to palpation but no focalized tenderness no rebound or guarding no rigidity. Bowel sounds normal active.. Differential diagnosis includes gastroenteritis versus gastritis versus colitis versus GI bleed versus mesenteric ischemia etc. Initial workup will be conducted with hematologic labs urinalysis stool for occult blood diarrhea panel CT scan abdomen pelvis. Initial interventions include crystalloid bolus and Protonix drip. Initial workup reviewed by me patient has a white count of 12.9 hemoglobin and hematocrit are 14 and 43.1 respectively with an absolute neutrophil count of 11, INR is 1.1, chemistry shows a BUN of 29 a creatinine of 1.8 and GFR of 36 procalcitonin is 0.164 and urinalysis shows 1 of protein trace ketones 2+ of bilirubin negative leukocyte esterase negative nitrite microscopic exam shows 3-5 white cells no red cells 5-10 squamous epithelial cells 1+ bacteria. Stool for occult blood is positive. CT scan read is pending at the time of handoff to Dr. Christie at 2200 hrs. <Chio Christie, DO - Last Filed: 01/30/25 22:44> Vital Signs: 01/30/25 19:37 01/30/25 20:01 01/30/25 20:30 Temperature 98.3 F Temperature Source Oral Pulse Rate 95 H 89 Pulse Rate [Radial] 95 H Respiratory Rate 18 17 13 Blood Pressure 101/61 L 100/60 L Blood Pressure [Right Arm] 113/69 Blood Pressure Mean [Right Arm] 83 Blood Pressure Position Blood Pressure Position [Right Arm] Sitting 02 Sat by Pulse Oximetry 98 97 97 Oxygen Delivery Method Room Air 01/30/25 21:30 01/30/25 21:39 01/30/25 22:00 Temperature Temperature Source Pulse Rate 92 H 92 H 99 H Pulse Rate [Radial] Respiratory Rate 19 24 15 Blood Pressure 86/52 L 92/45 L 109/86 L Blood Pressure [Right Arm] Blood Pressure Mean [Right Arm] Blood Pressure Position Blood Pressure Position [Right Arm] 02 Sat by Pulse Oximetry 93 L 95 96 Oxygen Delivery Method 01/30/25 22:32 Temperature 98.3 F Temperature Source Oral Pulse Rate 87 Pulse Rate [Radial] Respiratory Rate 18 Blood Pressure 115/66 Blood Pressure [Right Arm] Blood Pressure Mean [Right Arm] Blood Pressure Position Sitting Blood Pressure Position [Right Arm] 02 Sat by Pulse Oximetry Oxygen Delivery Method Room Air Lab Data Lab Results 01/30/25 19:49: WBC 12.9 H, RBC 4.41 L, Hgb 14.0 L, Hct 43.1, MCV 97.7 H, MCH 31.7 H, MCHC 32.5, RDW 13.0, Plt Count 326, MPV 10.9 H, Neut % (Auto) 84.8 H, L ymph % (Auto) 4.2 L, Faulkner % (Auto) 8.7, Eos % (Auto) 1.6, Baso % (Auto) 0.3, N eut # (Auto) 11.0 H, Lymph # (Auto) 0.5 L, [place] # (Auto) 1.1 H, Eos # (Auto) 0.2, Baso # (Auto) 0.0, Total Counted 100, Neutrophils % (Manual) 87 H, L ymphocytes % (Manual) 1 L, Monocytes % (Manual) 9, Eosinophils % (Manual) 3, Platelet Estimate Normal, RBC Morphology Normal, PT 12.2, INR 1.10, Sodium 139, Potassium 4.4, Chloride 106, Carbon Dioxide 23, Anion Gap 14.4, BUN 29 H, C reatinine 1.80 H, Estimated Creat Clear 26, Estimated GFR 36 L, Est GFR ( Amer) 44 L, Glucose 145 H, Calcium 9.0, Magnesium 2.0, Total Bilirubin 0.7, AST 29, ALT 19, Alkaline Phosphatase 67, Total Protein 7.5, Albumin 4.4, Globulin 3.1, Albumin/Globulin Ratio 1.4, Procalcitonin 0.164, HCV Ab SHANON w/Rflx PCR Qn Negative, HIV Ag/Ab Combo Qual Negative 01/30/25 19:59: Stool Occult Blood Positive A 01/30/25 20:44: Urine Color Dark yellow, Urine Appearance Slightly cloudy, Urine pH 5.5, Ur Specific [place] >= 1.030, Urine Protein 1+ A, Urine Glucose (UA) Negative, Urine Ketones Trace, Urine Blood Negative, Urine Nitrate Negative, U rine Bilirubin 2+ A, Urine Urobilinogen 0.2, Ur Leukocyte Esterase Negative, Urine RBC None, Urine WBC 3-5, Ur Squamous Epith Cells 5-10, Urine Bacteria 1+, Urine Mucus 3+ 01/30/25 21:58: Blood Type A Positive Orders (Tests/Meds): ED MEDICATIONS Generic Name Dose Route Start Last Admin Trade Name Freq PRN Reason Stop Dose Admin Sodium Chloride 10 ml 01/30/25 20:58 01/30/25 21:08 Sodium Chloride 0.9% 10ml Syr (Rad Only) IV 03/01/25 20:57 10 ml NEEDED PRN Administration Maintain IV Site Discontinued Medications Generic Name Dose Route Start Last Admin Trade Name Freq PRN Reason Stop Dose Admin Sodium Chloride 1,000 mls @ 999 mls/hr 01/30/25 20:08 01/30/25 20:26 Sod Chlor 0.9% 1000ml Bag IV 01/30/25 21:08 999 mls/hr .Q1H1M ONE Administration Pantoprazole Sodium 80 mg/ 100 mls @ 10 mls/hr 01/30/25 21:30 01/30/25 22:09 Sodium Chloride IV 02/02/25 21:29 10 mls/hr .Q10H CIRO Administration Iopamidol 80 ml 01/30/25 20:58 01/30/25 20:59 Iopamidol-370 (76%);100ml Bottle IV 01/30/25 20:59 80 ml ONCE ONE Administration Ondansetron HCl 4 mg 01/30/25 20:08 01/30/25 20:26 Ondansetron 4mg/2ml Vial IV 01/30/25 20:09 4 mg ONCE ONE Administration Sodium Chloride 50 ml 01/30/25 20:58 01/30/25 20:59 0.9 % Sodium Chloride 50 Ml Vial IV 01/30/25 20:59 50 ml ONCE ONE Administration ORDERS Category Date Time Status Type and Screen Stat BBK 01/30/25 21:[address] angio abd/pel - GI Bleed Stat Cat Scan 01/30/25 20:48 Completed CBC w/Auto Diff [Complete Blood Count Auto Diff] Stat Lab 01/30/25 19:49 Completed CMP [Comprehensive Metabolic Panel] Stat Lab 01/30/25 19:49 Completed HIV Combo Stat Lab 01/30/25 19:49 Completed Hepatitis C Ab Qual. W/ RFX Stat Lab 01/30/25 19:49 Completed INR [Prothrombin Time INR] Stat Lab 01/30/25 19:49 Completed Magnesium Stat Lab 01/30/25 19:49 Completed Occult Blood,Stool Stat Lab 01/30/25 19:59 Completed Procalcitonin Stat Lab 01/30/25 19:49 Completed UA [Urinalysis and Microscopic] Stat Lab 01/30/25 20:44 Completed Urine Culture Routine Micro 01/30/25 20:44 Received Medical Decision Narrative: In summary patient is a 84-year-old male who presents to the emergency department for evaluation of coffee-ground emesis nausea vomiting diarrhea. Patient is initially normotensive with a blood pressure 113/69 heart rate 95 with normal sinus rhythm at bedside monitor breathing 18 times minute satting at 98% on room air upon arrival, afebrile at 98.3. Physical exam reveals clear breath sounds with no increased work of breathing or adventitious sounds, abdomen is soft mildly diffusely tender to palpation but no focalized tenderness no rebound or guarding no rigidity. Bowel sounds normal active.. Differential diagnosis includes gastroenteritis versus gastritis versus colitis versus GI bleed versus mesenteric ischemia etc. Initial workup will be conducted with hematologic labs urinalysis stool for occult blood diarrhea panel CT scan abdomen pelvis. Initial interventions include crystalloid bolus and Protonix drip. Initial workup reviewed by me patient has a white count of 12.9 hemoglobin and hematocrit are 14 and 43.1 respectively with an absolute neutrophil count of 11, INR is 1.1, chemistry shows a BUN of 29 a creatinine of 1.8 and GFR of 36 procalcitonin is 0.164 and urinalysis shows 1 of protein trace ketones 2+ of bilirubin negative leukocyte esterase negative nitrite microscopic exam shows 3-5 white cells no red cells 5-10 squamous epithelial cells 1+ bacteria. Stool for occult blood is positive. CT scan read is pending at the time of handoff to Dr. Christie at 2200 hrs. I was consulted by the JUMA, and we discussed the complexity of the problems being addressed. I approved the treatment and management plan for this patient's care in the emergency department, thus performing a substantive portion of the medical decision making. On my assessment of the patient, he is lying comfortably in bed in no acute distress and is hemodynamically stable. CBC demonstrates mild leukocytosis, hemoglobin is stable at 14 not significantly changed from prior. BUN is elevated and creatinine is 1.8 with positive stool occult and what appears to be coffee-ground emesis. He also has had profuse diarrhea but he describes it as brown, nonmelanotic, no hematochezia. CTA GI bleed protocol does not demonstrate any notable active sources of bleeding on my independent interpretation. Please see radiology read for final interpretation. They no concerning findings for enteritis. Given concerns for GI bleed in the setting of likely enteritis, AI, and overall risk factors based on his age and history, I feel the patient would benefit from admission for continued monitoring and trending of his H&H to make sure he does not have any significant notable bleeding. I had an interactive discussion with the hospitalist who admitted the patient in stable condition. Chio Christie, DO Critical Care <JING Mckeon - Last Filed: 01/30/25 21:50> Critical Care Time Critical Care Time: Yes Attestation: On 01/30/25, the high probability of a clinically significant, sudden or life threatening deterioration of the following system(s) required my full and direct attention, intervention and personal management. The time I documented below is in addition to time spent performing reported procedures but includes the following listed in this critical care notation. Total Time Total Critical Care Time: 35
[2025-01-30 20:16] LABS: Chloride 106 mmol/L (98-107)
[2025-01-30 20:17] LABS: Albumin Level 4.4 g/dl (3.5-5.0); Basophils % 0.3 % (0.1-2.0); Eosinophils # 0.2 Kmm3 (0.0-0.4); Eosinophils % 1.6 % (0.1-12.0); Hematocrit 43.1 % (42.0-52.0); Lymphocytes # 0.5 K/mm3 (0.7-4.5); Lymphocytes % 4.2 % (10-50); Mean Corpuscular HGB Conc 32.5 g/dL (31.8-35.4); Mean Corpuscular Hemoglobin 31.7 pg (27.0-31.2); Mean Corpuscular Volume 97.7 fl (80-94); Mean Platelet Volume 10.9 fl (7.4-10.4); Monocytes # 1.1 K/mm3 (0.1-1.0); Monocytes % 8.7 % (1.7-9.3); Neutrophils % 84.8 % (37.0-80.0); Nucleated Red Blood Cells # 0 10^3/uL; Nucleated Red Blood Cells % 0 %; Platelet Count 326 K/mm3 (142-424); Red Blood Count 4.41 M/mm3 (4.60-6.20); Red Cell Distribution Width-SD 46.7 fL; Sodium 139 mmol/L (136-145); White Blood Count 12.9 K/mm3 (4.8-10.8)
[2025-01-30 20:19] LABS: Alanine Aminotransferase 19 U/L (12-78); Albumin/Globulin Ratio 1.4 (1.1-1.8); Aspartate Amino Transferase 29 U/L (17-59); Blood Urea Nitrogen 29 mg/dl (9-20); Carbon Dioxide 23 mmol/L (22.0-30.0); Creatinine Clearance Estimated 26 mL/min (50-200); Estimated Glomerular Filt Rate 36 ml/min (>60); GFR (African American) 44 ML/MIN (>60); Globulin 3.1 g/dL (1.3-3.2); Total Protein,Serum 7.5 g/dl (6.3-8.2)
[2025-01-30 20:20] LABS: Alkaline Phosphatase 67 U/L (38-126); Bilirubin,Total 0.7 mg/dl (0.2-1.3); Glucose 145 mg/dl (74-100)
[2025-01-30 20:23] LABS: Anion Gap 14.4 mEq/L (5-15); MANUAL DIFFERENTIAL MANUAL DIFFERENTIAL (MANUAL DIFF); Potassium 4.4 mmoL/L (3.5-5.1)
[2025-01-30] MEDS: 0.9 % SODIUM CHLORIDE 1000ML 1,000 ML 999 ML IV (20:26)
[2025-01-30] MEDS: ONDANSETRON 4MG/2ML VIAL 4 MG IV (20:26)
[2025-01-30 20:27] LABS: Prothrombin Time 12.2 seconds (10.1-12.5)
[2025-01-30 20:47] LABS: Microscopic, Urine URINE MICROSCOPIC (MICROSCOPIC)
--- NOTE | 2025-01-30 20:48 | CT_ITS ---
PROCEDURE INFORMATION: Exam: CTA Abdomen and Pelvis With Contrast Exam date and time: 01/30/2025 8:58 PM Age: 84 years old Clinical indication: Other: Coffee ground emesis; Additional info: Coffee ground emesis, abd pain TECHNIQUE: Imaging protocol: Computed tomographic angiography of the abdomen and pelvis with contrast. Exam focused on the arteries. 3D rendering (Not supervised by radiologist): MIP and/or 3D reconstructed images were created by the technologist. Radiation optimization: All CT scans at this facility use at least one of these dose optimization techniques: automated exposure control; mA and/or kV adjustment per patient size (includes targeted exams where dose is matched to clinical indication); or iterative reconstruction. Contrast material: ISOVUE; Contrast volume: 80 ml; Contrast route: INTRAVENOUS (IV); COMPARISON: CT ANGIO ABDOMEN/FEMORAL 07/26/2023 2:17 PM FINDINGS: Aorta: No aortic aneurysm. No aortic dissection. Atherosclerotic calcification. Celiac trunk and mesenteric arteries: Moderate to high-grade ostial stenosis of superior mesenteric artery. No occlusion or significant stenosis of celiac artery. Ostial atherosclerotic calcification. Renal arteries: No occlusion or significant stenosis. Right iliac arteries: No occlusion or significant stenosis. Left iliac arteries: No occlusion or significant stenosis. Liver: No mass. Gallbladder and biliary ducts: Surgically absent gallbladder without ductal dilatation. Pancreas: Unremarkable. No mass. No ductal dilation. Spleen: Unremarkable. No splenomegaly. Adrenal glands: Unremarkable. No mass. Kidneys and ureters: Stable left renal cyst. 0.4 cm nonobstructive left renal calculus. No solid mass. No hydronephrosis. Stomach and bowel: Fluid-filled distended stomach, fluid-filled dilated small bowel loops with mucosal thickening and nonobstructive pattern. Diffuse sigmoid colonic diverticula without pericolonic fat stranding Appendix: No evidence of appendicitis. Intraperitoneal space: Unremarkable. No free air. No significant fluid collection. Lymph nodes: Unremarkable. No enlarged lymph nodes. Urinary bladder: Irregular urinary bladder wall thickening with pericystic fat stranding. Reproductive: Enlarged prostate. Bones/joints: No acute fracture. Soft tissues: Unremarkable. IMPRESSION: 1. No source of active hemorrhage identified. 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 2. Fluid-filled stomach and small bowel loops with mucosal thickening suspicious for gastroenteritis, possibly viral etiology. 3. Cystitis. 4. Sigmoid colonic diverticulosis.
[2025-01-30 20:49] LABS: Procalcitonin 0.164 ng/mL (0.0-2.0)
[2025-01-30 20:50] LABS: Blood, Urine Negative (Negative); Glucose,Urine (UA) Negative (Negative); Ketones,Urine TRACE (Negative); Leukocyte Esterase,Urine Negative (Negative); Nitrate,Urine Negative (Negative); PH,Urine 5.5 (5.0-8.5); Protein,Urine 1+ (Negative); Specific Gravity, Urine >= 1.030 (1.005-1.030); Urobilinogen,Urine 0.2 EU/dl (0.2)
[2025-01-30 20:54] LABS: Appearance,Urine Slightly Cloudy (Clear); Bilirubin,Urine 2+ (Negative); Color,Urine Dark Yellow (Yellow)
[2025-01-30 20:55] LABS: HIV Combo NEGATIVE (Negative)
[2025-01-30 20:59] LABS: Eosinophils % 3 % (0-3); Lymphocytes % 1 % (10-50); Monocytes % 9 % (2-9); Neutrophils % 87 % (42-76); Total Cells Counted 100
[2025-01-30] MEDS: 0.9 % SODIUM CHLORIDE 50 ML VIAL IV (20:59)
[2025-01-30] MEDS: IOPAMIDOL-370 (76%);100ML BOTTLE 80 ML IV (20:59)
[2025-01-30 21:00] LABS: Platelet Estimate Normal; RBC Morphology Normal
[2025-01-30 21:02] LABS: Hepatitis C Ab Qual. W/ RFX NEGATIVE (Negative)
[2025-01-30 21:04] LABS: Occult Blood,Stool Positive (Negative)
[2025-01-30 21:08] LABS: Bacteria,Urine 1+ /lpf; Mucus,Urine 3+ /lpf
[2025-01-30] MEDS: SODIUM CHLORIDE 0.9% 10ML SYR (RAD ONLY) 10 ML IV (21:08)
[2025-01-30] MEDS: PANTOPRAZOLE SODIUM 80 MG in 0.9 % SODIUM CHLORIDE 100 ML 10 MG IV (22:09)
--- NOTE | 2025-01-30 22:25 | PC.NURSE ---
admitting provider at the bedside
--- NOTE | 2025-01-30 22:31 | PC.NURSE ---
Report given to Rosalina RN on the floor
--- NOTE | 2025-01-30 22:47 | P.HP_ITS ---
<Statement entered by Vijay Tolentino MD - 02/03/25 04:05> Personally evaluated patient and agree with plan of care as outlined by the URANIUM PROCESSING SUPERVISOR. History of Present Illness *Admission Date: 01/30/25 *Reason for visit:: Diarrhea and cough *History of present illness: This is an 84-year-old male who has a past medical history significant for allergic rhinitis, dyspnea with exertion, neck mass, chronic kidney disease, atypical angina, syncope, claudication, GERD, lumbar radiculopathy, hypertension, vertigo, and vitamin B12 deficiency who presents with a chief complaint of diarrhea and cough. Due to patient's symptoms, he presented to the emergency room for evaluation. While in the emergency room, he shared with the ER provider that he has been having coffee ground emesis. Patient's occult stool was positive. 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 Patient is currently prescribed Plavix due to coronary artery disease. Hospital medicine was contacted due to the a forementioned symptom ology; as a result, patient has been admitted for further management. During my evaluation of the patient, patient could not detail how many episodes of loose stool he has been having in the day. When asked, patient states that is only 2-3; however, family member at the bedside reports that he mentions that he was up all night having diarrhea. He also mentions that his nausea and vomiting mostly happens after he has had a coughing spell. Patient states that he is having sinusitis and he is having a lot of drainage in the back of his throat-most likely postnasal drip. He does not mention any dark-colored stools to me. Family member reports that he has not had a recent colonoscopy but they believe he had an EGD approximately [address] Mclain. Apparently, Dr. Mclain wanted to increase his PPI therapy from once a day to twice a day due to GERD symptomology. He is currently denying any abdominal pain, hemoptysis, hematuria, frequency of urination, burning with urination, dark- colored urine, hematuria, hematochezia, shortness of breath, chest pain, lightheadedness, dizziness, fever, chills, or headache. Additional pertinent vitals obtained include a white blood cell count of 12.9, red blood cell count of 4.41, hemoglobin of 14, hematocrit of 43, neutrophils 84.8%, BUN of 29, creatinine 1.08, GFR of 36, blood glucose 145, and urinalysis revealed 2+ bilirubin. [facility] Disclaimer: The information contained in this section may have been updated after the patie nt was seen, as this information can be updated by other users. 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 Atypical angina Syncope Claudication Abnormal EKG Surgical History Hx of cataract surgery History of colonoscopy History of hernia surgery Family History Other Heart attack Hypertension Social History Smoking Status: Never smoker alcohol intake: never substance use type: denies use current occupational status: retired Travel in the last 8 weeks: None household members: spouse housing: house caffeine: Yes Have you lived/traveled outside [place] in past 30 days?: No Contact w/someone who lives/traveled outside [place] past 30 days?: No Exposure to someone with infectious disease in past 14 days?: No Do you have a fever (greater than 100.4 F or 38 C)?: No Have you tested positive for COVID-19: No Exposed to someone with COVID-19 in past 14 days?: No Do you have a sore throat?: No Do you have a cough?: No Do you have any weakness?: No Do you have any diarrhea?: No Are you experiencing any unusual bleeding?: No Do you have any muscle aches/pain?: No Do you have any abdominal pain?: No Are you experiencing loss of taste or smell?: No Other Medical History Have you received the Flu Vaccine for this season: Yes Have you received the Pneumonia Vaccine: No Review of Systems Review of Systems Review of systems:: pertinent systems reviewed and negative unless documented below Constitutional Constitutional: Reports system reviewed and no additional complaints, except as documented Eyes Eyes: Reports system reviewed and no additional complaints, except as documented ENT Ears, Nose, Mouth, and Throat: Reports post nasal drip and Reports sinus pressure *Cardiovascular Cardiovascular: Reports system reviewed and no additional complaints, except as documented *Respiratory Respiratory: Reports system reviewed and no additional complaints, except as documented *Gastrointestinal Gastrointestinal: Reports coffee ground emesis and Reports diarrhea *Genitourinary Genitourinary: Reports system reviewed and no additional complaints, except as documented *Musculoskeletal Musculoskeletal: Reports system reviewed and no additional complaints, except as documented Integumentary/Breasts Skin/Breast: Reports system reviewed and no additional complaints, except as documented *Neurologic Neurologic: Reports system reviewed and no additional complaints, except as documented Psychiatric Psychiatric: Reports system reviewed and no additional complaints, except as documented Endocrine Endocrine: Reports system reviewed and no additional complaints, except as documented Hematologic/Lymphatic Hematologic/Lymphatic: Reports system reviewed and no additional complaints, except as documented Allergic/Immunologic Allergic/Immunologic: Reports system reviewed and no additional complaints, except as documented Meds Home Medications and Allergies Home Medications ?Medication ?Instructions ?Recorded ?Confirmed ?Type clopidogrel 75 mg tablet 18.75 mg PO DAILY 04/29/24 12/09/24 History telmisartan 40 mg tablet 40 mg PO DAILY HTN 10 days #10 tabs 07/23/24 12/09/24 Rx pantoprazole 40 mg tablet,delayed 40 mg PO DAILY #90 tabs 09/22/24 12/09/24 Rx release (Protonix) albuterol sulfate 90 mcg/actuation 2 puff inhalation Q4-6H PRN 10/10/24 12/09/24 Rx aerosol inhaler shortness of breath or wheezing #6.7 grams diphenhydramine HCl 25 mg capsule 50 mg PO DAILY 10/16/24 12/09/24 History (Benadryl) famotidine 20 mg tablet 20 mg PO DAILY 10/16/24 12/09/24 History tamsulosin 0.4 mg capsule See Rx Instructions .Route 11/05/24 12/09/24 Rx .COMPLEX #90 caps levocetirizine 5 mg tablet See Rx Instructions .Route 12/09/24 12/09/24 Rx .COMPLEX #90 tabs azelastine 137 mcg (0.1 %) nasal 2 spray intranasal BID #30 mL 12/24/24 Rx spray clotrimazole-betamethasone 1 See Rx Instructions .Route 12/24/24 Rx %-0.05 % lotion .COMPLEX #120 mL hydroxyzine HCl 25 mg tablet 25 mg PO HS PRN itching #90 tabs 12/24/24 Rx New Prescriptions to Start Prescriptions: Allergies Allergy/AdvReac Type Severity Reaction Status Date / Time aspirin (ASPIRIN) Allergy Mild Verified 12/09/24 14:13 codeine (CODEINE) Allergy Mild Verified 12/09/24 14:13 guaifenesin (GUAIFENESIN) Allergy Mild Verified 12/09/24 14:13 Penicillins (PENICILLINS) Allergy Mild Verified 12/09/24 14:13 Exam Data for Last 24 hours Vital signs and Labs for Last 24 Hours: Temp Pulse Resp BP Pulse Ox O2 Del Method 98.3 F 87 18 115/66 96 Room Air 01/30/25 22:32 01/30/25 22:32 01/30/25 22:32 01/30/25 22:32 01/30/25 22:00 01/30/25 22:32 Laboratory Results - last 24 hr 01/30/25 19:49: WBC 12.9 H, RBC 4.41 L, Hgb 14.0 L, Hct 43.1, MCV 97.7 H, MCH 31.7 H, MCHC 32.5, RDW 13.0, Plt Count 326, MPV 10.9 H, Neut % (Auto) 84.8 H, Lymph % (Auto) 4.2 L, [place] % (Auto) 8.7, Eos % (Auto) 1.6, Baso % (Auto) 0.3, Neut # (Auto) 11.0 H, Lymph # (Auto) 0.5 L, [place] # (Auto) 1.1 H, Eos # (Auto) 0.2, Baso # (Auto) 0.0, Total Counted 100, Neutrophils % (Manual) 87 H, Lymphocytes % (Manual) 1 L, Monocytes % (Manual) 9, Eosinophils % (Manual) 3, Platelet Estimate Normal, RBC Morphology Normal, PT 12.2, INR 1.10, Sodium 139, Potassium 4.4, Chloride 106, Carbon Dioxide 23, Anion Gap 14.4, BUN 29 H, Creatinine 1.80 H, Estimated Creat Clear 26, Estimated GFR 36 L, Est GFR ( Amer) 44 L, Glucose 145 H, Calcium 9.0, Magnesium 2.0, Total Bilirubin 0.7, AST 29, ALT 19, Alkaline Phosphatase 67, Total Protein 7.5, Albumin 4.4, Globulin 3.1, Albumin/Globulin Ratio 1.4, Procalcitonin 0.164, HCV Ab SHANON w/Rflx PCR Qn Negative, HIV Ag/Ab Combo Qual Negative 01/30/25 19:59: Stool Occult Blood Positive A 01/30/25 20:44: Urine Color Dark yellow, Urine Appearance Slightly cloudy, Urine pH 5.5, Ur Specific [place] >= 1.030, Urine Protein 1+ A, Urine Glucose (UA) Negative, Urine Ketones Trace, Urine Blood Negative, Urine Nitrate Negative, Uri ne Bilirubin 2+ A, Urine Urobilinogen 0.2, Ur Leukocyte Esterase Negative, Urine RBC None, Urine WBC 3-5, Ur Squamous Epith Cells 5-10, Urine Bacteria 1+, Urine Mucus 3+ 01/30/25 21:58: Blood Type A Positive I & O for Last 24 hours: Intake & Output 01/27/25 01/28/25 01/29/25 01/30/25 23:59 23:59 23:59 23:59 Weight 58.967 kg Constitutional Constitutional: no acute distress, thin and cooperative *Routine HEENT Exam Head: Present normocephalic and atraumatic Eye: Present EOMI and PERRL ENT: Present mucous membranes moist *Routine Neck Exam Neck: Present supple, full ROM and trachea midline *Routine Respiratory Exam Respiratory: Present CTA bilaterally, normal respiratory effort, able to speak in complete sentences and symmetric chest movement *Routine Cardiovascular Exam Cardiovascular: Present RRR, Normal S1 and Normal S2 *Routine Abdominal Exam Abdominal: Present soft and normoactive bowel sounds *Routine Rectal Exam Rectal:: deferred *Routine Genitalia Exam Genitalia:: deferred *Routine Extremities Exam Extremities: Present full ROM, pulses intact and normal capillary refill Routine Back/Spine/Pelvis Exam Back/Spine: Present full ROM *Routine Skin Exam Skin: Present intact, dry, warm and normal turgor *Routine Neurological Exam Neurological: Present alert, oriented X3, CN II-XII intact, moving all extremities and normal speech Routine Psychiatric Exam Psychiatric: Present normal affect, normal thought process, cooperative and good insight H&P: Result Impressions 84-year-old man who presents with posttussis coffee ground emesis and positive Hemoccult currently prescribed Plavix and management of coronary artery disease. Currently is hemodynamically stable with stable hemoglobin hematocrit. Assessment and Plan *Assessment and plan (1) GI bleed: Status: Acute Qualifiers: GI bleed type/associated pathology: unspecified gastrointestinal hemorrhage type Qualified Code(s): K92.2 - Gastrointestinal hemorrhage, unspecified Category: Medical Code(s): K92.2 - Gastrointestinal hemorrhage, unspecified (2) Hematemesis: Status: Acute Qualifiers: Nausea presence: with nausea Qualified Code(s): K92.0 - Hematemesis Category: Medical Code(s): K92.0 - Hematemesis (3) Gastroenteritis: Status: Acute Category: Medical Code(s): K52.9 - Noninfective gastroenteritis and colitis, unspecified (4) Leukocytosis: Status: Acute Qualifiers: Leukocytosis type: unspecified Qualified Code(s): D72.829 - Elevated white blood cell count, unspecified Category: Medical Code(s): D72.829 - Elevated white blood cell count, unspecified (5) Acute kidney injury superimposed on chronic kidney disease: Status: Acute Category: Medical Code(s): N17.9 - Acute kidney failure, unspecified; N18.9 - Chronic kidney disease, unspecified (6) Hyperglycemia: Status: Acute Category: Medical Code(s): R73.9 - Hyperglycemia, unspecified (7) Colon, diverticulosis: Status: Acute Category: Medical Code(s): K57.30 - Diverticulosis of large intestine without perforation or abscess without bleeding Plan Assessment: GI bleed Hematemesis Positive occult stool (without any prior episodes of melena) - Patient's hemoglobin hematocrit are stable and patient's blood pressure/heart rate are stable - Will recheck hemoglobin in the a.m. unless patient starts to be symptomatic to include: Tachycardia, pallor, confusion, hypotension, or shortness of breath - Will discontinue Protonix drip and start 40 mg Protonix IV twice daily - Will consider holding patient's daily Plavix - Will consult general surgery in a.m. -Cardiac diet now then n.p.o. after midnight Gastroenteritis - Will empirically treat for potential GI infection - 500 mg levofloxacin p.o. daily - 500 mg of Flagyl IV every 6 hours - Patient does have long-term use of PPI therapy - Will obtain diarrhea panel with C. difficile Leukocytosis with left shift - Will give antibiotics as highlighted above Acute on chronic kidney disease: Baseline creatinine appears around 1.60 - Most likely prerenal due to nausea and vomiting - Patient did receive IV contrast will do avoid nephrotoxic drugs from this point - Will monitor creatinine function daily - Normal saline at 100 mL an hour - If creatinine worsens will obtain urine studies and will obtain renal ultrasound Hyperglycemia - Will monitor - No current diagnosis of diabetes - If fasting blood glucose in a.m. is still greater than 120 mg/dL, will consider hemoglobin A1c Sigmoid colon diverticulosis without diverticulitis - This was seen on imaging Plan: Admit patient to the MedSurg unit on telemetry Type and screen Activity as tolerated Cardiac diet and n.p.o. after midnight CBC/BMP daily 4 mg Zofran IV push every 8 hours for nausea vomit Although imaging is reporting cystitis patient's urinalysis is not consistent with a urinary tract infection. Moreover, patient is not complaining of any urinary tract infection symptoms Will monitor patient's culture and sensitivity Full code I will discussed this case with attending physician Dr. Tolentino and a look forward to more input
--- NOTE | 2025-01-30 22:53 | PC.NURSE ---
Patient arrived to floor via wheelchair from ED at 22:52.
[2025-01-30] MEDS: 0.9 % SODIUM CHLORIDE 1000ML 1,000 ML 100 ML IV (23:35)
[2025-01-30] MEDS: METRONIDAZ/SOD CHL 500 MG/100 ML PIGGYBACK 100 MG IV (23:35)
[2025-01-31] VITALS: PULSE 80
--- NOTE | 2025-01-31 03:40 | PC.NURSE ---
Mr Star Flowers was newly admitted on behalf of the documented diagnosis, gastrointestinal bleeding. Admission assessments and home medication reconciliation were completed by the charge nurse (Ana Miranda RN). Patient is pleasantly alert and oriented x4. Patient has been having an intermittently, productive cough with brown-tinged sputum. He stated that he has also been having persistent oropharnyx drainage and runny and watery bowel movements for a few days. Patient has not had a bowel movement thus far during this shift. He is continuing to pass gas. A urinal is at the bedside for urination needs. Patient denied tenderness in abdomen + with palpation. Intravenous Flagyl and normal saline infusions were initiated during this shift. Protonix drip discontinued in place of 40 mg Protonix IV BID. Denies further nausea/vomiting. Auscultation of his heart, lungs, and bowel sounds were within normal findings. Soft blood pressures noted. Patient ambulates independently + standby assistance without difficulties. He has remained NPO since midnight; fresh ice water was the only intake he consumed orally prior to midnight upon arrival to the second floor. At this time, the patient is resting in bed without any further complaints. No new needs at this time. Bed alarm on. Call light within reach.
[2025-01-31 04:00] VITALS: BP 93/51; PULSE 72; PULSE 90; RESP 16; TEMP 37.1; O2SAT 97; BMI 20.5
[2025-01-31] MEDS: METRONIDAZ/SOD CHL 500 MG/100 ML PIGGYBACK 100 MG IV ×3 (04:58→20:00)
[2025-01-31 07:20] LABS: Basophils % 0.2 % (0.1-2.0); Chloride 112 mmol/L (98-107); Eosinophils % 0.3 % (0.1-12.0); Lymphocytes # 0.4 K/mm3 (0.7-4.5); Lymphocytes % 4.4 % (10-50); Mean Corpuscular HGB Conc 32.9 g/dL (31.8-35.4); Mean Corpuscular Hemoglobin 32.2 pg (27.0-31.2); Mean Platelet Volume 10.5 fl (7.4-10.4); Monocytes % 11.1 % (1.7-9.3); Neutrophils # 7.3 K/mm3 (1.8-7.8); Neutrophils % 83.8 % (37.0-80.0); Nucleated Red Blood Cells # 0 10^3/uL; Nucleated Red Blood Cells % 0 %; Platelet Count 250 K/mm3 (142-424); Potassium 4.2 mmoL/L (3.5-5.1); Red Blood Count 3.57 M/mm3 (4.60-6.20); Red Cell Distribution Width-SD 46.9 fL; Sodium 137 mmol/L (136-145); White Blood Count 8.7 K/mm3 (4.8-10.8)
[2025-01-31 07:23] LABS: Anion Gap 11.2 mEq/L (5-15); Blood Urea Nitrogen 31 mg/dl (9-20); Calcium 7.8 mg/dl (8.4-10.2); Carbon Dioxide 18 mmol/L (22.0-30.0); Creatinine Clearance Estimated 25 mL/min (50-200); Estimated Glomerular Filt Rate 39 ml/min (>60); GFR (African American) 47 ML/MIN (>60); Glucose 84 mg/dl (74-100); MANUAL DIFFERENTIAL MANUAL DIFFERENTIAL (MANUAL DIFF)
[2025-01-31 07:41] LABS: Hemoglobin 11.6 g/dL (14.1-18.0)
--- NOTE | 2025-01-31 07:58 | PC.NURSE ---
Pt taken a hat and educated on the need for a stool sample and asked if he could cough anything up in a cup as well
[2025-01-31 08:00] VITALS: BP 98/48; PULSE 68; PULSE 83; RESP 17; TEMP 36.7; O2SAT 93
[2025-01-31 08:38] LABS: Lymphocytes % 8 % (10-50); Monocytes % 7 % (2-9); Neutrophils % 85 % (42-76); Platelet Estimate Normal; RBC Morphology Normal; Total Cells Counted 100
[2025-01-31] MEDS: PANTOPRAZOLE 40MG VIAL 40 MG IV ×2 (08:45→20:00)
[2025-01-31] MEDS: SODIUM CHLORIDE 0.9% 10ML VIAL 10 ML IV (08:45)
[2025-01-31 09:09] LABS: Iron 54 ug/dL (49-181)
--- NOTE | 2025-01-31 09:10 | [facility].PHAINT1 ---
Pharmacy Intervention Comments: MEDICATION RECONCILIATION COMPLETE USING EXTERNAL PHARMACY FILL HISTORY AND RECENT MD OFFICE VISIT NOTE.
--- NOTE | 2025-01-31 09:19 | EXP.SURG.CON ---
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 Coughing actually caused him to vomit some dark brown emesis. He has had some abdominal cramping. He described the diarrhea as brown water running out of me . By his description this seems quite significant. He underwent thorough evaluation in the emergency department. He did have a hemoglobin of 14 which is near his baseline. Stool for Hemoccult was positive. He underwent CT angiogram of the abdomen and pelvis which revealed no source of active hemorrhage. 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 There was fluid-filled stomach and small bowel loops with mucosal thickening suspicious for findings of gastroenteritis. He was admitted for inpatient management. Surgical consultation was ordered for the Hemoccult positivity as a GI bleed . Hgb is 11.6 this morning. Diarrhea panel has been ordered but not collected. [facility] Disclaimer: The information contained in this section may have been updated after the patient was seen, as this information can be updated by other users. Medical History Right serous otitis media Allergic rhinitis Dyspnea on exertion Chronic cough Neck mass Pulsatile tinnitus of right ear Atypical angina Syncope Claudication Abnormal EKG Surgical History Hx of cataract surgery History of colonoscopy History of hernia surgery Family History Other Heart attack Hypertension Social History (Updated 01/30/25 @ 23:18 by Belén Miranda RN) Smoking Status: Never smoker alcohol intake: never substance use type: denies use current occupational status: retired Travel in the last 8 weeks: None household members: spouse housing: house caffeine: Yes Have you lived/traveled outside [place] in past 30 days?: No Contact w/someone who lives/traveled outside US past 30 days?: No Exposure to someone with infectious disease in past 14 days?: No Do you have a fever (greater than 100.4 F or 38 C)?: No Have you tested positive for COVID-19: No Exposed to someone with COVID-19 in past 14 days?: No Do you have a sore throat?: No Do you have a cough?: No Do you have any weakness?: No Do you have any diarrhea?: No Are you experiencing any unusual bleeding?: No Do you have any muscle aches/pain?: No Do you have any abdominal pain?: No Are you experiencing loss of taste or smell?: No Review of Systems *Neurologic Neurologic: Reports system reviewed and no additional complaints, except as documented Meds Home Medications and Allergies Home Medications ?Medication ?Instructions ?Recorded ?Confirmed ?Type pantoprazole 40 mg tablet,delayed 40 mg PO DAILY #90 tabs 09/22/24 01/31/25 Rx release (Protonix) diphenhydramine HCl 25 mg capsule 50 mg PO HS 10/16/24 01/31/25 History (Benadryl) famotidine 20 mg tablet 20 mg PO DAILY 10/16/24 01/31/25 History azelastine 137 mcg (0.1 %) nasal 2 spray intranasal BID #30 mL 12/24/24 01/31/25 Rx spray levocetirizine 5 mg tablet 5 mg PO DAILY 01/30/25 01/31/25 History tamsulosin 0.4 mg capsule 0.4 mg PO HS 01/30/25 01/31/25 History albuterol sulfate 90 mcg/actuation 2 puff inhalation Q4HP PRN 01/31/25 01/31/25 History aerosol inhaler shortness of breath or wheezing clotrimazole-betamethasone 1 0 ea topical BID 01/31/25 01/31/25 History %-0.05 % lotion hydroxyzine HCl 25 mg tablet 25 mg PO HSP PRN itching 01/31/25 01/31/25 History telmisartan 40 mg tablet 40 mg PO DAILY 01/31/25 01/31/25 History New Prescriptions to Start Prescriptions: Allergies Allergy/AdvReac Type Severity Reaction Status Date / Time aspirin (ASPIRIN) Allergy Mild Verified 12/09/24 14:13 codeine (CODEINE) Allergy Mild Verified 12/09/24 14:13 guaifenesin (GUAIFENESIN) Allergy Mild Verified 12/09/24 14:13 Penicillins (PENICILLINS) Allergy Mild Verified 12/09/24 14:13 Exam (Inpt) Vital signs and Labs for Last 24 Hours: Temp Pulse Resp BP Pulse Ox O2 Del Method 98.0 F 68 17 98/48 L 93 L Room Air 01/31/25 08:00 01/31/25 08:00 01/31/25 08:00 01/31/25 08:00 01/31/25 08:00 01/31/25 08:00 Laboratory Results - last 24 hr 01/30/25 19:49: WBC 12.9 H, RBC 4.41 L, Hgb 14.0 L, Hct 43.1, MCV 97.7 H, MCH 31.7 H, MCHC 32.5, RDW 13.0, Plt Count 326, MPV 10.9 H, Neut % (Auto) 84.8 H, Lymph % (Auto) 4.2 L, [place] % (Auto) 8.7, Eos % (Auto) 1.6, Baso % (Auto) 0.3, Neut # (Auto) 11.0 H, Lymph # (Auto) 0.5 L, [place] # (Auto) 1.1 H, Eos # (Auto) 0.2, Baso # (Auto) 0.0, Total Counted 100, Neutrophils % (Manual) 87 H, Lymphocytes % (Manual) 1 L, Monocytes % (Manual) 9, Eosinophils % (Manual) 3, Platelet Estimate Normal, RBC Morphology Normal, PT 12.2, INR 1.10, Sodium 139, Potassium 4.4, Chloride 106, Carbon Dioxide 23, Anion Gap 14.4, BUN 29 H, Creatinine 1.80 H, Estimated Creat Clear 26, Estimated GFR 36 L, Est GFR ( Amer) 44 L, Glucose 145 H, Calcium 9.0, Magnesium 2.0, Total Bilirubin 0.7, AST 29, ALT 19, Alkaline Phosphatase 67, Total Protein 7.5, Albumin 4.4, Globulin 3.1, Albumin/Globulin Ratio 1.4, Procalcitonin 0.164, HCV Ab SHANON w/Rflx PCR Qn Negative, HIV Ag/Ab Combo Qual Negative 01/30/25 19:59: Stool Occult Blood Positive A 01/30/25 20:44: Urine Color Dark yellow, Urine Appearance Slightly cloudy, Urine pH 5.5, Ur Specific [place] >= 1.030, Urine Protein 1+ A, Urine Glucose (UA) Negative, Urine Ketones Trace, Urine Blood Negative, Urine Nitrate Negative, Urine Bilirubin 2+ A, Urine Urobilinogen 0.2, Ur Leukocyte Esterase Negative, Urine RBC None, Urine WBC 3-5, Ur Squamous Epith Cells 5-10, Urine Bacteria 1+, Urine Mucus 3+ 01/30/25 21:58: Blood Type A Positive, Antibody Screen Negative 01/31/25 07:00: WBC 8.7 D, RBC 3.57 L, Hgb 11.6 L D, Hct 35.0 L, MCV 98.0 H, MCH 32.2 H, MCHC 32.9, RDW 13.0, Plt Count 250, MPV 10.5 H, Neut % (Auto) 83.8 H, Lymph % (Auto) 4.4 L, [place] % (Auto) 11.1 H, Eos % (Auto) 0.3, Baso % (Auto) 0.2, Neut # (Auto) 7.3, Lymph # (Auto) 0.4 L, [place] # (Auto) 1.0, Eos # (Auto) 0.0, Baso # (Auto) 0.0, Total Counted 100, Neutrophils % (Manual) 85 H, Lymphocytes % (Manual) 8 L, Monocytes % (Manual) 7, Platelet Estimate Normal, RBC Morphology Normal, Sodium 137, Potassium 4.2, Chloride 112 H, Carbon Dioxide 18 L, Anion Gap 11.2, BUN 31 H, Creatinine 1.70 H, Estimated Creat Clear 25, Estimated GFR 39 L, Est GFR ( Amer) 47 L, Glucose 84 D, Calcium 7.8 L, Iron 54 I & O for Labs for Last 24 Hours: Intake & Output 01/28/25 01/29/25 01/30/25 01/31/25 11:59 11:59 11:59 11:59 Intake Total 714 / 714 Output Total 150 / 150 Balance 564 / 564 Weight 116 lb 1.6 oz GI: Present soft; Absent tenderness Results Labs 01/31/25 07:00 01/31/25 07:00 Labs: Laboratory Results - last 24 hr 01/30/25 19:49: WBC 12.9 H, RBC 4.41 L, Hgb 14.0 L, Hct 43.1, MCV 97.7 H, MCH 31.7 H, MCHC 32.5, RDW 13.0, Plt Count 326, MPV 10.9 H, Neut % (Auto) 84.8 H, Lymph % (Auto) 4.2 L, [place] % (Auto) 8.7, Eos % (Auto) 1.6, Baso % (Auto) 0.3, Neut # (Auto) 11.0 H, Lymph # (Auto) 0.5 L, [place] # (Auto) 1.1 H, Eos # (Auto) 0.2, Baso # (Auto) 0.0, Total Counted 100, Neutrophils % (Manual) 87 H, Lymphocytes % (Manual) 1 L, Monocytes % (Manual) 9, Eosinophils % (Manual) 3, Platelet Estimate Normal, RBC Morphology Normal, PT 12.2, INR 1.10, Sodium 139, Potassium 4.4, Chloride 106, Carbon Dioxide 23, Anion Gap 14.4, BUN 29 H, Creatinine 1.80 H, Estimated Creat Clear 26, Estimated GFR 36 L, Est GFR ( Amer) 44 L, Glucose 145 H, Calcium 9.0, Magnesium 2.0, Total Bilirubin 0.7, AST 29, ALT 19, Alkaline Phosphatase 67, Total Protein 7.5, Albumin 4.4, Globulin 3.1, Albumin/Globulin Ratio 1.4, Procalcitonin 0.164, HCV Ab SHANON w/Rflx PCR Qn Negative, HIV Ag/Ab Combo Qual Negative 01/30/25 19:59: Stool Occult Blood Positive A 01/30/25 20:44: Urine Color Dark yellow, Urine Appearance Slightly cloudy, Urine pH 5.5, Ur Specific [place] >= 1.030, Urine Protein 1+ A, Urine Glucose (UA) Negative, Urine Ketones Trace, Urine Blood Negative, Urine Nitrate Negative, Urine Bilirubin 2+ A, Urine Urobilinogen 0.2, Ur Leukocyte Esterase Negative, Urine RBC None, Urine WBC 3-5, Ur Squamous Epith Cells 5-10, Urine Bacteria 1+, Urine Mucus 3+ 01/30/25 21:58: Blood Type A Positive, Antibody Screen Negative 01/31/25 07:00: WBC 8.7 D, RBC 3.57 L, Hgb 11.6 L D, Hct 35.0 L, MCV 98.0 H, MCH 32.2 H, MCHC 32.9, RDW 13.0, Plt Count 250, MPV 10.5 H, Neut % (Auto) 83.8 H, Lymph % (Auto) 4.4 L, [place] % (Auto) 11.1 H, Eos % (Auto) 0.3, Baso % (Auto) 0.2, Neut # (Auto) 7.3, Lymph # (Auto) 0.4 L, [place] # (Auto) 1.0, Eos # (Auto) 0.0, Baso # (Auto) 0.0, Total Counted 100, Neutrophils % (Manual) 85 H, Lymphocytes % (Manual) 8 L, Monocytes % (Manual) 7, Platelet Estimate Normal, RBC Morphology Normal, Sodium 137, Potassium 4.2, Chloride 112 H, Carbon Dioxide 18 L, Anion Gap 11.2, BUN 31 H, Creatinine 1.70 H, Estimated Creat Clear 25, Estimated GFR 39 L, Est GFR ( Amer) 47 L, Glucose 84 D, Calcium 7.8 L, Iron 54 Assessment and Plan *Assessment and plan (1) GI bleed: Status: Acute Qualifiers: GI bleed type/associated pathology: unspecified gastrointestinal hemorrhage type Qualified Code(s): K92.2 - Gastrointestinal hemorrhage, unspecified Category: Medical Code(s): K92.2 - Gastrointestinal hemorrhage, unspecified Plan Symptoms seem most consistent with a gastroenteritis. Recommend proceeding with stool diarrhea panel. Plan for expectant management. He has dropped his hemoglobin somewhat but clinical significance somewhat difficult to determine as he has been hydrated. He may very well have Hemoccult positivity due to inflammation and being on clopidogrel. Recommend empiric proton pump inhibitors.
[2025-01-31 09:44] LABS: Ferritin 64.5 ng/ml (17.9-464)
[2025-01-31 12:00] VITALS: BP 99/58; PULSE 66; PULSE 69; RESP 16; TEMP 37; O2SAT 91
[2025-01-31 12:12] LABS: Hematocrit 38.5 % (42.0-52.0); Hemoglobin 12.3 g/dL (14.1-18.0)
[2025-01-31] MEDS: 0.9 % SODIUM CHLORIDE 1000ML 1,000 ML 100 ML IV (12:14)
[2025-01-31] MEDS: levoFLOXacin 750 MG TABLET PO (12:14)
--- NOTE | 2025-01-31 14:11 | PC.NURSE ---
Pt's daughter came to speak with this nurse about pt' She stated that pt had moved the hat from the commode and had had another bm. Pt family encouraged pt to not move hat out of the toilet so that we could collect a sample.
[2025-01-31 14:53] LABS: Adenovirus F 40/41, stool Not Detected (NotDetected); Astrovirus Not Detected (NotDetected); Campylobacter Not Detected (NotDetected); Clostridium Difficile A/B, PCR Not Detected (NotDetected); Cryptosporidium Not Detected (NotDetected); Cyclospora Cayetanesis Not Detected (NotDetected); Entamoeba histolytica Not Detected (NotDetected); Enteroaggregative E coli Not Detected (NotDetected); Enteropathogenic E coli Not Detected (NotDetected); Enterotoxigenic E coli Not Detected (NotDetected); Giardia lamblia Not Detected (NotDetected); Norovirus Not Detected (NotDetected); Plesimonas Shigalloides, PCR Not Detected (NotDetected); Salmonella, PCR Not Detected (NotDetected); Sapovirus Not Detected (NotDetected); Shiga-like toxin E coli Not Detected (NotDetected); Shigella Enterovasive E coli Not Detected (NotDetected); Vibrio Cholerae Not Detected (NotDetected); Vibrio, PCR Not Detected (NotDetected); Yersinia Entercolitica, PCR Not Detected (NotDetected)
[2025-01-31 14:57] LABS: Adenovirus,PCR Not Detected (NotDetected); Bordetella Pertussis Not Detected (NotDetected); Chlamydophila Pneumoniae, PCR Not Detected (NotDetected); Coronavirus 19, PCR Not Detected (NotDetected); Coronavirus 229E Not Detected (NotDetected); Coronavirus NL63 Not Detected (NotDetected); Coronavirus OC43 Not Detected (NotDetected); Coronovirus HKU1,PCR Not Detected (NotDetected); Human Metapneumovirus Not Detected (NotDetected); Influenza A, PCR Not Detected (NotDetected); Influenza AH1, 2009 Not Detected (NotDetected); Influenza AH1, PCR Not Detected (NotDetected); Influenza AH3,PCR Not Detected (NotDetected); Influenza B, PCR Not Detected (NotDetected); Mycoplasma Pneumoniae, PCR Not Detected (NotDetected); Parainfluenza 1, PCR Not Detected (NotDetected); Parainfluenza 2, PCR Not Detected (NotDetected); Parainfluenza 3, PCR Not Detected (NotDetected); Parainfluenza 4, PCR Not Detected (NotDetected); Respiratory Syncytial Virus Not Detected (NotDetected); Rhinovirus/Enterovirus Not Detected (NotDetected)
[2025-01-31] MEDS: FAMOTIDINE 20MG TABLET 20 MG PO ×2 (15:42→20:00)
[2025-01-31 16:00] VITALS: BP 114/62; PULSE 74; PULSE 78; RESP 16; TEMP 36.6; O2SAT 98
[2025-01-31 17:46] LABS: Rotavirus A Detected (NotDetected)
[2025-01-31] MEDS: BELLADONNA ALKALOIDS 60 ML ML PO (18:15)
[2025-01-31 20:00] VITALS: BP 100/51; PULSE 80; RESP 16; TEMP 36.7; O2SAT 97
--- NOTE | 2025-01-31 21:55 | EXP.PN ---
Subjective *Date: 02/22/25 *Time: 16:15 Interval history: Patient feeling quite well today. Continues to have episodes of diarrhea. Positive for rotavirus. Tolerating full liquid diet. Surgery recommends advancing diet, low suspicion for GI bleed which I agree with. Hemoglobin stable throughout the day. Anticipate discharge in the morning continues to be stable. Exam Data for Last 24 hours Vital signs and Labs for Last 24 Hours: Temp Pulse Resp BP Pulse Ox O2 Del Method 98.0 F 80 16 100/51 L 97 Room Air 01/31/25 20:00 01/31/25 20:00 01/31/25 20:00 01/31/25 20:00 01/31/25 20:00 01/31/25 21:00 Laboratory Results - last 24 hr 01/30/25 21:58: Blood Type A Positive, Antibody Screen Negative 01/31/25 07:00: WBC 8.7 D, RBC 3.57 L, Hgb 11.6 L D, Hct 35.0 L, MCV 98.0 H, MCH 32.2 H, MCHC 32.9, RDW 13.0, Plt Count 250, MPV 10.5 H, Neut % (Auto) 83.8 H, Lymph % (Auto) 4.4 L, [place] % (Auto) 11.1 H, Eos % (Auto) 0.3, Baso % (Auto) 0.2, Neut # (Auto) 7.3, Lymph # (Auto) 0.4 L, [place] # (Auto) 1.0, Eos # (Auto) 0.0, Baso # (Auto) 0.0, Total Counted 100, Neutrophils % (Manual) 85 H, Lymphocytes % (Manual) 8 L, Monocytes % (Manual) 7, Platelet Estimate Normal, RBC Morphology Normal, Sodium 137, Potassium 4.2, Chloride 112 H, Carbon Dioxide 18 L, Anion Gap 11.2, BUN 31 H, Creatinine 1.70 H, Estimated Creat Clear 25, Estimated GFR 39 L, Est GFR ( Amer) 47 L, Glucose 84 D, Calcium 7.8 L, Iron 54, Ferritin 64.5 01/31/25 12:05: Hgb 12.3 L, Hct 38.5 L 01/31/25 14:45: Stl Aeromonas (PCR) Not detected, Stl C. cayetanensis PCR Not detected, Stool Rotavirus (PCR) Detected A, Stl Adenov F 40/41 PCR Not detected, Stool Astrovirus (PCR) Not detected, Stool Campylobacter PCR Not detected, Stl C.difficile Tox PCR Not detected, Stool Cryptosporidium PCR Not detected, Stl E.coli Shiga Tox PCR Not detected, Stool E coli O157 PCR Not detected, Stl Enterotoxigenic E PCR Not detected, Stool EPEC (PCR) Not detected, Stool EAEC (PCR) Not detected, Stl E. histolytica PCR Not detected, Stool Giardia Lamblia PCR Not detected, Stool Salmonella PCR Not detected, Stool Sapovirus (PCR) Not detected, Stl P. shigelloides PCR Not detected, Stl Shigella/EIEC PCR Not detected, St Y.enterocolitica PCR Not detected, Stool Vibrio (PCR) Not detected, Stl Vibrio cholerae PCR Not detected, Stl Norovirus GI/GII PCR Not detected 01/31/25 14:50: Chlamy pneumoniae PCR Not detected, Adenovirus (PCR) Not detected, B. pertussis DNA (PCR) Not detected, Coronavirus OC43 (PCR) Not detected, Coronavirus HKU1 (PCR) Not detected, Coronavirus 229E (PCR) Not detected, SARS-CoV-2 (PCR) Not detected, Coronavirus NL63 (PCR) Not detected, Human Metapneumovir PCR Not detected, Influenza A (H1) PCR Not detected, Influ A (H1N1/09) PCR Not detected, Influenza A (H3) PCR Not detected, Influenza Type A (PCR) Not detected, Influenza Type B (PCR) Not detected, M. pneumoniae (PCR) Not detected, Parainfluenza 1 (PCR) Not detected, Parainfluenza 2 (PCR) Not detected, Parainfluenza 3 (PCR) Not detected, Parainfluenza 4 (PCR) Not detected, RSV (PCR) Not detected, Entero/Rhino (PCR) Not detected I & O for Last 24 hours: Intake & Output 01/28/25 01/29/25 01/30/25 01/31/25 23:59 23:59 23:59 23:59 Intake Total 1194 / 1194 Output Total 250 / 250 Balance 944 / 944 Weight 52.662 kg 52.662 kg Constitutional Constitutional: no acute distress *Routine HEENT Exam Head: Present normocephalic Eye: Present EOMI and PERRL ENT: Present mucous membranes moist *Routine Neck Exam Neck: Present supple; Absent lymphadenopathy *Routine Respiratory Exam Respiratory: Present CTA bilaterally *Routine Cardiovascular Exam Cardiovascular: Present RRR *Routine Abdominal Exam Abdominal: Present soft and normoactive bowel sounds; Absent tenderness *Routine Extremities Exam Extremities: Absent cyanosis, clubbing or edema *Routine Skin Exam Skin: Present warm; Absent rash *Routine Neurological Exam Neurological: Present alert and oriented X3 Assessment and Plan *Assessment and plan (1) GI bleed: Status: Resolved Qualifiers: GI bleed type/associated pathology: unspecified gastrointestinal hemorrhage type Qualified Code(s): K92.2 - Gastrointestinal hemorrhage, unspecified Category: Medical Code(s): K92.2 - Gastrointestinal hemorrhage, unspecified (2) Hematemesis: Status: Resolved Qualifiers: Nausea presence: with nausea Qualified Code(s): K92.0 - Hematemesis Category: Medical Code(s): K92.0 - Hematemesis (3) Gastroenteritis: Status: Resolved Category: Medical Code(s): K52.9 - Noninfective gastroenteritis and colitis, unspecified (4) Leukocytosis: Status: Resolved Qualifiers: Leukocytosis type: unspecified Qualified Code(s): D72.829 - Elevated white blood cell count, unspecified Category: Medical Code(s): D72.829 - Elevated white blood cell count, unspecified (5) Acute kidney injury superimposed on chronic kidney disease: Status: Resolved Category: Medical Code(s): N17.9 - Acute kidney failure, unspecified; N18.9 - Chronic kidney disease, unspecified (6) Hyperglycemia: Status: Resolved Category: Medical Code(s): R73.9 - Hyperglycemia, unspecified (7) Colon, diverticulosis: Status: Acute Category: Medical Code(s): K57.30 - Diverticulosis of large intestine without perforation or abscess without bleeding Plan Farzad Flowers is a 84-year-old male who presented with intractable diarrhea, poor oral tolerance, and an apparent episode of dark red emesis and was admitted for evaluation of the same. #Rotavirus gastroenteritis #Dark red emesis ? Several day onset of diffuse watery diarrhea. Stool PCR positive for rotavirus. No signs of sepsis. ? Initially started on levofloxacin, discontinued after stool PCR. ? Clinically improved with IV fluid resuscitation. ?Positive FOBT, hemoglobin stable around 11.5. High suspicion for significant gastroenteritis causing irritation and friable GI tissue leading to microbleed. General surgery consulted, agreed with this. No plan of scoping. ? Continue monitor hemoglobin over the next day, if stable anticipate discharge close follow-up with PCP. General surgery has no plan of scoping at this time. #Hypertension ? Blood pressure low normal. Hold telmisartan until follow-up with PCP. #GERD ? Continue home Protonix 40 mg #BPH ? Continue home tamsulosin 0.4 mg. Total time spent on discharge: 31 minutes on chart review, counseling, documentation, and direct care with patient.
[2025-02-01] VITALS: BP 105/44; PULSE 70; PULSE 73; RESP 16; TEMP 37.2; O2SAT 95
[2025-02-01 04:00] VITALS: BP 92/43; PULSE 60; PULSE 61; RESP 16; TEMP 36.6; O2SAT 97; BMI 22.3
--- NOTE | 2025-02-01 05:31 | PC.NURSE ---
Pt A&OX4 with a couple brief episodes of confusion throughout the night. He has tolerated room air. Receiving IV ABX. He has ambulated room independently. He has remained of contact precaution for rotavirus.No complaints at this time, call light within reach.
[2025-02-01] MEDS: METRONIDAZ/SOD CHL 500 MG/100 ML PIGGYBACK 100 MG IV (05:58)
[2025-02-01] MEDS: ONDANSETRON 4MG/2ML VIAL 4 MG IV (07:30)
[2025-02-01 07:38] LABS: Basophils % 0.2 % (0.1-2.0); Chloride 113 mmol/L (98-107); Eosinophils % 0.2 % (0.1-12.0); Hematocrit 34.5 % (42.0-52.0); Hemoglobin 11.4 g/dL (14.1-18.0); Lymphocytes # 0.6 K/mm3 (0.7-4.5); Lymphocytes % 10.5 % (10-50); Mean Corpuscular Hemoglobin 32.1 pg (27.0-31.2); Mean Corpuscular Volume 97.2 fl (80-94); Mean Platelet Volume 10.7 fl (7.4-10.4); Monocytes # 0.8 K/mm3 (0.1-1.0); Monocytes % 13.3 % (1.7-9.3); Neutrophils # 4.5 K/mm3 (1.8-7.8); Neutrophils % 75.5 % (37.0-80.0); Nucleated Red Blood Cells # 0 10^3/uL; Nucleated Red Blood Cells % 0 %; Platelet Count 219 K/mm3 (142-424); Red Blood Count 3.55 M/mm3 (4.60-6.20); Red Cell Distribution Width 12.9 % (11.5-17.5); Red Cell Distribution Width-SD 46.1 fL; Sodium 136 mmol/L (136-145)
[2025-02-01 07:39] LABS: Potassium 4.1 mmoL/L (3.5-5.1)
[2025-02-01 07:41] LABS: Blood Urea Nitrogen 31 mg/dl (9-20); Creatinine Clearance Estimated 30 mL/min (50-200); Estimated Glomerular Filt Rate 45 ml/min (>60); GFR (African American) 54 ML/MIN (>60)
[2025-02-01 07:42] LABS: Anion Gap 13.1 mEq/L (5-15); Calcium 7.9 mg/dl (8.4-10.2); Carbon Dioxide 14 mmol/L (22.0-30.0); Glucose 68 mg/dl (74-100)
[2025-02-01 07:50] VITALS: BP 99/52; PULSE 57; RESP 18; TEMP 36.4; O2SAT 99
[2025-02-01 08:00] VITALS: PULSE 90
--- NOTE | 2025-02-01 08:21 | P.DS_ITS ---
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 Coughing actually caused him to vomit some dark brown emesis. He has had some abdominal cramping. He described the diarrhea as brown water running out of me . By his description this seems quite significant. He underwent thorough evaluation in the emergency department. He did have a hemoglobin of 14 which is near his baseline. Stool for Hemoccult was positive. He underwent CT angiogram of the abdomen and pelvis which revealed no source of active hemorrhage. 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 There was fluid-filled stomach and small bowel loops with mucosal thickening suspicious for findings of gastroenteritis. He was admitted for inpatient management. Surgical consultation was ordered for the Hemoccult positivity as a GI bleed . Hgb is 11.6 this morning. Diarrhea panel has been ordered but not collected. Hospital Course Hospital Course Hospital Course: Farzad Flowers is a 84-year-old male who presented with intractable diarrhea, poor oral tolerance, and an apparent episode of dark red emesis and was admitted for evaluation of the same. #Rotavirus gastroenteritis #Dark red emesis ? Several day onset of diffuse watery diarrhea. Stool PCR positive for rotavirus. No signs of sepsis. ? Initially started on levofloxacin, discontinued after stool PCR. ? Clinically improved with IV fluid resuscitation. ? Initially there was concern of GI bleed with dark red emesis and the fact that FOBT was positive, however hemoglobin remained stable at 11.5 with no episodes of upper or lower GI bleed. Vital signs remained stable. High suspicion for significant gastroenteritis causing irritation and friable GI tissue leading to microbleed. General surgery consulted, agreed with this. No plan of scoping. ? Will follow-up with PCP for further evaluation and management, and consideration for colonoscopy if patient further develops anemia. Outside the window for screening colonoscopy. Screening colonoscopy age screening #Hypertension ? Blood pressure low normal. Hold telmisartan until follow-up with PCP. #GERD ? Continue home Protonix 40 mg #BPH ? Continue home tamsulosin 0.4 mg. Total time spent on discharge: 31 minutes on chart review, counseling, documentation, and direct care with patient. Exam Data for Last 24 hours Vital signs and Labs for Last 24 Hours: Temp Pulse Resp BP Pulse Ox O2 Del Method 97.6 F 57 L 18 99/52 L 99 Room Air 02/01/25 07:50 02/01/25 07:50 02/01/25 07:50 02/01/25 07:50 02/01/25 07:50 02/01/25 07:50 Laboratory Results - last 24 hr 01/31/25 07:00: Total Counted 100, Neutrophils % (Manual) 85 H, Lymphocytes % (Manual) 8 L, Monocytes % (Manual) 7, Platelet Estimate Normal, RBC Morphology Normal, Iron 54, Ferritin 64.5 01/31/25 12:05: Hgb 12.3 L, Hct 38.5 L 01/31/25 14:45: Stl Aeromonas (PCR) Not detected, Stl C. cayetanensis PCR Not detected, Stool Rotavirus (PCR) Detected A, Stl Adenov F 40/41 PCR Not detected, Stool Astrovirus (PCR) Not detected, Stool Campylobacter PCR Not detected, Stl C.difficile Tox PCR Not detected, Stool Cryptosporidium PCR Not detected, Stl E.coli Shiga Tox PCR Not detected, Stool E coli O157 PCR Not detected, Stl Enterotoxigenic E PCR Not detected, Stool EPEC (PCR) Not detected, Stool EAEC (PCR) Not detected, Stl E. histolytica PCR Not detected, Stool Giardia Lamblia PCR Not detected, Stool Salmonella PCR Not detected, Stool Sapovirus (PCR) Not detected, Stl P. shigelloides PCR Not detected, Stl Shigella/EIEC PCR Not detected, St Y.enterocolitica PCR Not detected, Stool Vibrio (PCR) Not detected, Stl Vibrio cholerae PCR Not detected, Stl Norovirus GI/GII PCR Not detected 01/31/25 14:50: Chlamy pneumoniae PCR Not detected, Adenovirus (PCR) Not detect ed, B. pertussis DNA (PCR) Not detected, Coronavirus OC43 (PCR) Not detected, Coronavirus HKU1 (PCR) Not detected, Coronavirus 229E (PCR) Not detected, SARS-CoV-2 (PCR) Not detected, Coronavirus NL63 (PCR) Not detected, Human Metapneumovir PCR Not detected, Influenza A (H1) PCR Not detected, Influ A (H1N1/09) PCR Not detected, Influenza A (H3) PCR Not detected, Influenza Type A (PCR) Not detected, Influenza Type B (PCR) Not detected, M. pneumoniae (PCR) Not detected, Parainfluenza 1 (PCR) Not detected, Parainfluenza 2 (PCR) Not detected, Parainfluenza 3 (PCR) Not detected, Parainfluenza 4 (PCR) Not detected, RSV (PCR) Not detected, Entero/Rhino (PCR) Not detected 02/01/25 07:10: WBC 6.0 D, RBC 3.55 L, Hgb 11.4 L, Hct 34.5 L, MCV 97.2 H, MCH 32.1 H, MCHC 33.0, RDW 12.9, Plt Count 219, MPV 10.7 H, Neut % (Auto) 75.5, Lymph % (Auto) 10.5, Randall % (Auto) 13.3 H, Eos % (Auto) 0.2, Baso % (Auto) 0.2, Neut # (Auto) 4.5, Lymph # (Auto) 0.6 L, Randall # (Auto) 0.8, Eos # (Auto) 0.0, Baso # (Auto) 0.0, Sodium 136, Potassium 4.1, Chloride 113 H, Carbon Dioxide 14 L, Anion Gap 13.1, BUN 31 H, Creatinine 1.50 H, Estimated Creat Clear 30, Estimated GFR 45 L, Est GFR ( Amer) 54 L, Glucose 68 L, Calcium 7.9 L I & O for Last 24 hours: Intake & Output 01/29/25 01/30/25 01/31/25 02/01/25 23:59 23:59 23:59 23:59 Intake Total 1194 / 1294 160 / 160 Output Total 250 / 250 100 / 100 Balance 944 / 1044 60 / 60 Weight 52.662 kg 52.662 kg 57.153 kg Constitutional Constitutional: no acute distress *Routine HEENT Exam Head: Present normocephalic Eye: Present EOMI and PERRL ENT: Present mucous membranes moist *Routine Neck Exam Neck: Present supple; Absent lymphadenopathy *Routine Respiratory Exam Respiratory: Present CTA bilaterally *Routine Cardiovascular Exam Cardiovascular: Present RRR *Routine Abdominal Exam Abdominal: Present soft and normoactive bowel sounds; Absent tenderness *Routine Extremities Exam Extremities: Absent cyanosis, clubbing or edema *Routine Skin Exam Skin: Present warm; Absent rash *Routine Neurological Exam Neurological: Present alert and oriented X3 Results Data Completed and Pending Labs on day of discharge: Labs from last 24 hours 02/01/25 01/31/25 01/31/25 07:10 14:50 14:45 WBC 6.0 D RBC 3.55 L Hgb 11.4 L Hct 34.5 L MCV 97.2 H MCH 32.1 H MCHC 33.0 RDW 12.9 Plt Count 219 MPV 10.7 H Neut % (Auto) 75.5 Lymph % (Auto) 10.5 Randall % (Auto) 13.3 H Eos % (Auto) 0.2 Baso % (Auto) 0.2 Neut # (Auto) 4.5 Lymph # (Auto) 0.6 L Randall # (Auto) 0.8 Eos # (Auto) 0.0 Baso # (Auto) 0.0 Total Counted Neutrophils % (Manual) Lymphocytes % (Manual) Monocytes % (Manual) Platelet Estimate RBC Morphology Sodium 136 Potassium 4.1 Chloride 113 H Carbon Dioxide 14 L Anion Gap 13.1 BUN 31 H Creatinine 1.50 H Estimated Creat Clear 30 Estimated GFR 45 L Est GFR ( Amer) 54 L Glucose 68 L Calcium 7.9 L Iron Ferritin Stl Aeromonas (PCR) Not detected Stl C. cayetanensis PCR Not detected Stool Rotavirus (PCR) Detected A Stl Adenov F 40/41 PCR Not detected Stool Astrovirus (PCR) Not detected Stool Campylobacter PCR Not detected Stl C.difficile Tox PCR Not detected Stool Cryptosporidium PCR Not detected Stl E.coli Shiga Tox PCR Not detected Stool E coli O157 PCR Not detected Stl Enterotoxigenic E PCR Not detected Stool EPEC (PCR) Not detected Stool EAEC (PCR) Not detected Stl E. histolytica PCR Not detected Stool Giardia Lamblia PCR Not detected Stool Salmonella PCR Not detected Stool Sapovirus (PCR) Not detected Stl P. shigelloides PCR Not detected Stl Shigella/EIEC PCR Not detected St Y.enterocolitica PCR Not detected Stool Vibrio (PCR) Not detected Stl Vibrio cholerae PCR Not detected Stl Norovirus GI/GII PCR Not detected Chlamy pneumoniae PCR Not detected Adenovirus (PCR) Not detected B. pertussis DNA (PCR) Not detected Coronavirus OC43 (PCR) Not detected Coronavirus HKU1 (PCR) Not detected Coronavirus 229E (PCR) Not detected SARS-CoV-2 (PCR) Not detected Coronavirus NL63 (PCR) Not detected Human Metapneumovir PCR Not detected Influenza A (H1) PCR Not detected Influ A (H1N1/09) PCR Not detected Influenza A (H3) PCR Not detected Influenza Type A (PCR) Not detected Influenza Type B (PCR) Not detected M. pneumoniae (PCR) Not detected Parainfluenza 1 (PCR) Not detected Parainfluenza 2 (PCR) Not detected Parainfluenza 3 (PCR) Not detected Parainfluenza 4 (PCR) Not detected RSV (PCR) Not detected Entero/Rhino (PCR) Not detected 01/31/25 01/31/25 12:05 07:00 WBC RBC Hgb 12.3 L Hct 38.5 L MCV MCH MCHC RDW Plt Count MPV Neut % (Auto) Lymph % (Auto) Randall % (Auto) Eos % (Auto) Baso % (Auto) Neut # (Auto) Lymph # (Auto) Randall # (Auto) Eos # (Auto) Baso # (Auto) Total Counted 100 Neutrophils % (Manual) 85 H Lymphocytes % (Manual) 8 L Monocytes % (Manual) 7 Platelet Estimate Normal RBC Morphology Normal Sodium Potassium Chloride Carbon Dioxide Anion Gap BUN Creatinine Estimated Creat Clear Estimated GFR Est GFR ( Amer) Glucose Calcium Iron 54 Ferritin 64.5 Stl Aeromonas (PCR) Stl C. cayetanensis PCR Stool Rotavirus (PCR) Stl Adenov F 40/41 PCR Stool Astrovirus (PCR) Stool Campylobacter PCR Stl C.difficile Tox PCR Stool Cryptosporidium PCR Stl E.coli Shiga Tox PCR Stool E coli O157 PCR Stl Enterotoxigenic E PCR Stool EPEC (PCR) Stool EAEC (PCR) Stl E. histolytica PCR Stool Giardia Lamblia PCR Stool Salmonella PCR Stool Sapovirus (PCR) Stl P. shigelloides PCR Stl Shigella/EIEC PCR St Y.enterocolitica PCR Stool Vibrio (PCR) Stl Vibrio cholerae PCR Stl Norovirus GI/GII PCR Chlamy pneumoniae PCR Adenovirus (PCR) B. pertussis DNA (PCR) Coronavirus OC43 (PCR) Coronavirus HKU1 (PCR) Coronavirus 229E (PCR) SARS-CoV-2 (PCR) Coronavirus NL63 (PCR) Human Metapneumovir PCR Influenza A (H1) PCR Influ A (H1N1/09) PCR Influenza A (H3) PCR Influenza Type A (PCR) Influenza Type B (PCR) M. pneumoniae (PCR) Parainfluenza 1 (PCR) Parainfluenza 2 (PCR) Parainfluenza 3 (PCR) Parainfluenza 4 (PCR) RSV (PCR) Entero/Rhino (PCR) DS: Diagnosis Discharge Diagnosis (1) GI bleed: Status: Acute Code(s): K92.2 - Gastrointestinal hemorrhage, unspecified Qualifiers: GI bleed type/associated pathology: unspecified gastrointestinal hemorrhage type Qualified Code(s): K92.2 - Gastrointestinal hemorrhage, unspecified (2) Hematemesis: Status: Acute Code(s): K92.0 - Hematemesis Qualifiers: Nausea presence: with nausea Qualified Code(s): K92.0 - Hematemesis (3) Gastroenteritis: Status: Acute Code(s): K52.9 - Noninfective gastroenteritis and colitis, unspecified (4) Leukocytosis: Status: Acute Code(s): D72.829 - Elevated white blood cell count, unspecified Qualifiers: Leukocytosis type: unspecified Qualified Code(s): D72.829 - Elevated white blood cell count, unspecified (5) Acute kidney injury superimposed on chronic kidney disease: Status: Acute Code(s): N17.9 - Acute kidney failure, unspecified; N18.9 - Chronic kidney disease, unspecified (6) Hyperglycemia: Status: Acute Code(s): R73.9 - Hyperglycemia, unspecified (7) Colon, diverticulosis: Status: Acute Code(s): K57.30 - Diverticulosis of large intestine without perforation or abscess without bleeding Meds Home Medications and Allergies Home Medications ?Medication ?Instructions ?Recorded ?Confirmed ?Type pantoprazole 40 mg tablet,delayed 40 mg PO DAILY #90 tabs 09/22/24 01/31/25 Rx release (Protonix) diphenhydramine HCl 25 mg capsule 50 mg PO HS 10/16/24 01/31/25 History (Benadryl) famotidine 20 mg tablet 20 mg PO DAILY 10/16/24 01/31/25 History azelastine 137 mcg (0.1 %) nasal 2 spray intranasal BID #30 mL 12/24/24 01/31/25 Rx spray levocetirizine 5 mg tablet 5 mg PO DAILY 01/30/25 01/31/25 History tamsulosin 0.4 mg capsule 0.4 mg PO HS 01/30/25 01/31/25 History albuterol sulfate 90 mcg/actuation 2 puff inhalation Q4HP PRN 01/31/25 01/31/25 History aerosol inhaler shortness of breath or wheezing clotrimazole-betamethasone 1 0 ea topical BID 01/31/25 01/31/25 History %-0.05 % lotion hydroxyzine HCl 25 mg tablet 25 mg PO HSP PRN itching 01/31/25 01/31/25 History telmisartan 40 mg tablet 40 mg PO DAILY 01/31/25 01/31/25 History New Prescriptions to Start Prescriptions: Allergies Allergy/AdvReac Type Severity Reaction Status Date / Time aspirin (ASPIRIN) Allergy Mild Verified 12/09/24 14:13 codeine (CODEINE) Allergy Mild Verified 12/09/24 14:13 guaifenesin (GUAIFENESIN) Allergy Mild Verified 12/09/24 14:13 Penicillins (PENICILLINS) Allergy Mild Verified 12/09/24 14:13 Discharge Plan Disposition Patient Disposition: Home, Self-Care Condition: Fair Follow up Plan Follow up with: Erin Juan APRN [Primary Care Provider] - Enter time for follow up (please call for appointment) Prescriptions/Medication Reconciliation: Continued pantoprazole [Protonix] 40 mg tablet,delayed release (DR/EC) 40 mg PO DAILY Qty: 90 3RF azelastine 137 mcg (0.1 %) spray,non-aerosol 2 spray INTRANASAL BID Qty: 30 1RF Rx Instructions: administer into each nostril famotidine 20 mg Tablet 20 mg PO DAILY diphenhydramine HCl [Benadryl] 25 mg Capsule 50 mg PO HS tamsulosin 0.4 mg capsule 0.4 mg PO HS levocetirizine 5 mg tablet 5 mg PO DAILY Rx Instructions: TAKE 1 TABLET BY MOUTH DAILY clotrimazole-betamethasone 1-0.05 % lotion 0 ea topical BID hydroxyzine HCl 25 mg tablet 25 mg PO HSP PRN (Reason: itching) albuterol sulfate 90 mcg/actuation HFA aerosol inhaler 2 puff inhalation Q4HP PRN (Reason: shortness of breath or wheezing) Held telmisartan 40 mg tablet 40 mg PO DAILY Hold Instructions: Resume on 02/15/25. Hold this medication until follow-up with PCP as your blood pressure has been stable without it. Problem Reconciliation Problems Reviewed?: Yes Patient Discharge Instructions Patient Instructions: Gastrointestinal Bleeding Print Language: Turkish Providers Primary Care Provider: Erin Juan Admit Provider: Jon Ramos Attending Provider: Jon Ramos
[2025-02-01] MEDS: PANTOPRAZOLE 40MG VIAL 40 MG IV (08:23)
[2025-02-01] MEDS: SODIUM CHLORIDE 0.9% 10ML VIAL 10 ML IV (08:23)
[2025-02-01] MEDS: FAMOTIDINE 20MG TABLET 20 MG PO (08:24)
[2025-02-01 09:20] VITALS: BP 104/65; BP 106/67; BP 111/60; PULSE 72; PULSE 75; PULSE 77
[2025-02-01 12:00] VITALS: BP 117/61; PULSE 68; RESP 16; TEMP 36.4; O2SAT 98
--- NOTE | 2025-02-02 11:19 | SW/DCPLANNER ---
Spoke with patient on the phone. Patient stated that he is doing well. Patient stated that he is going to call his primary care provider and schedule his follow up appointment. Patient stated that he was able to get his medicine and that it gets delivered to his house. Patient stated that he has no concerns or questions at this time. Eduardo Kumar
== END 2025-02-01 13:02 | disposition home or self-care (01) ==
LOC: ER 19:43 → 2ND 22:43
PROVIDERS: Nurse Practitioner Family; Physician Assistant; Student in an Organized Health Care Education/Training Program; Admitting Provider Internal Medicine Adolescent Medicine; Emergency Provider Emergency Medicine; PCP Nurse Practitioner Family; Visit Provider Internal Medicine Adolescent Medicine
DX: A08.0 Rotaviral enteritis (principal); K92.0 Hematemesis; D72.829 Elevated white blood cell count, unspecified; N17.9 Acute kidney failure, unspecified; N18.9 Chronic kidney disease, unspecified; R73.9 Hyperglycemia, unspecified; K57.30 Diverticulosis of large intestine without perforation or abscess without bleeding; K21.9 Gastro-esophageal reflux disease without esophagitis; Z88.0 Allergy status to penicillin; Z88.5 Allergy status to narcotic agent; Z88.6 Allergy status to analgesic agent; Z79.82 Long term (current) use of aspirin; Z79.899 Other long term (current) drug therapy; I12.9 Hypertensive chronic kidney disease with stage 1 through stage 4 chronic kidney disease, or unspecified chronic kidney disease; I70.203 Unspecified atherosclerosis of native arteries of extremities, bilateral legs; I77.1 Stricture of artery
CPT/HCPCS: 36415; 74174; 80048; 80053; 81001; 82272; 82728; 83540; 83735; 84145; 85007; 85014; 85018; 85025; 85027; 85610; 86803; 86850; 87070; 87086; 87205; 87389; 87507; 87633; 99291; G0328; G0378; J2405; J7030; Q9967

== ENCOUNTER 2025-02-04 08:36 | Outpatient (CLI) | payer MEDICARE, SELFPAY ==
[2025-02-04 17:11] LABS: Basophils % 0.2 % (0.1-2.0); Eosinophils # 0.1 Kmm3 (0.0-0.4); Eosinophils % 2.3 % (0.1-12.0); Hematocrit 37.6 % (42.0-52.0); Lymphocytes # 0.8 K/mm3 (0.7-4.5); Lymphocytes % 13.4 % (10-50); Mean Corpuscular HGB Conc 34.6 g/dL (31.8-35.4); Mean Corpuscular Hemoglobin 32.3 pg (27.0-31.2); Mean Corpuscular Volume 93.5 fl (80-94); Mean Platelet Volume 11.2 fl (7.4-10.4); Monocytes # 0.5 K/mm3 (0.1-1.0); Monocytes % 8.9 % (1.7-9.3); Neutrophils # 4.5 K/mm3 (1.8-7.8); Neutrophils % 74.9 % (37.0-80.0); Nucleated Red Blood Cells # 0 10^3/uL; Nucleated Red Blood Cells % 0 %; Platelet Count 285 K/mm3 (142-424); Red Blood Count 4.02 M/mm3 (4.60-6.20); Red Cell Distribution Width 12.9 % (11.5-17.5); Red Cell Distribution Width-SD 44.5 fL
[2025-02-04 18:47] LABS: Alanine Aminotransferase 15 U/L (12-78); Albumin/Globulin Ratio 1.6 (1.1-1.8); Alkaline Phosphatase 57 U/L (38-126); Anion Gap 9.6 mEq/L (5-15); Aspartate Amino Transferase 21 U/L (17-59); Bilirubin,Total 0.5 mg/dl (0.2-1.3); Blood Urea Nitrogen 17 mg/dl (9-20); Calcium 9.6 mg/dl (8.4-10.2); Carbon Dioxide 25 mmol/L (22.0-30.0); Chloride 110 mmol/L (98-107); Estimated Glomerular Filt Rate 53 ml/min (>60); GFR (African American) 64 ML/MIN (>60); Globulin 2.5 g/dL (1.3-3.2); Glucose 88 mg/dl (74-100); Potassium 4.6 mmoL/L (3.5-5.1); Sodium 140 mmol/L (136-145); Total Protein,Serum 6.5 g/dl (6.3-8.2)
== END 2025-02-04 23:59 | disposition home or self-care (01) ==
LOC: LAB.DROPOF 02-06 08:36
PROVIDERS: PCP Nurse Practitioner Family; Visit Provider Nurse Practitioner Family
DX: R19.7 Diarrhea, unspecified (principal); N17.9 Acute kidney failure, unspecified; N18.9 Chronic kidney disease, unspecified
CPT/HCPCS: 80053; 85025

== ENCOUNTER 2025-02-06 14:03 | Outpatient (CLI) | payer MEDICARE, SELFPAY | END 2025-02-06 23:59 | disposition home or self-care (01) | LOC: LAB 14:04 | PROVIDERS: PCP Nurse Practitioner Family; Visit Provider Nurse Practitioner Family | DX: R19.7 Diarrhea, unspecified (principal) | CPT/HCPCS: 87205; 87493 ==

== ENCOUNTER 2025-03-10 13:50 | Outpatient (CLI) | payer MEDICARE, SELFPAY ==
--- NOTE | 2025-03-10 13:53 | XR_ITS ---
FINAL REPORT CLINICAL HISTORY: right shoulder pain, decreased ROM FINDINGS: 3 views of the right shoulder were obtained. There is no fracture or dislocation. The joint space is preserved. Soft tissues are unremarkable. IMPRESSION: No acute osseous abnormality of the right shoulder. Authenticated and ERN
[2025-03-10 16:49] LABS: Basophils # 0.1 K/mm3 (0-0.2); Basophils % 0.8 % (0.1-2.0); Eosinophils # 0.7 Kmm3 (0.0-0.4); Eosinophils % 9.7 % (0.1-12.0); Hematocrit 39.8 % (42.0-52.0); Hemoglobin 12.5 g/dL (14.1-18.0); Immature Granulocytes # 0.03 10^3uL; Immature Granulocytes % 0.4 %; Lymphocytes # 0.7 K/mm3 (0.7-4.5); Lymphocytes % 9.3 % (10-50); Mean Corpuscular HGB Conc 31.4 g/dL (31.8-35.4); Mean Corpuscular Hemoglobin 31.2 pg (27.0-31.2); Mean Corpuscular Volume 99.3 fl (80-94); Mean Platelet Volume 10.5 fl (7.4-10.4); Monocytes # 0.6 K/mm3 (0.1-1.0); Monocytes % 7.3 % (1.7-9.3); Neutrophils # 5.5 K/mm3 (1.8-7.8); Neutrophils % 72.5 % (37.0-80.0); Nucleated Red Blood Cells # 0 10^3/uL; Nucleated Red Blood Cells % 0 %; Platelet Count 341 K/mm3 (142-424); Red Blood Count 4.01 M/mm3 (4.60-6.20); Red Cell Distribution Width 13.4 % (11.5-17.5); Red Cell Distribution Width-SD 49.1 fL; White Blood Count 7.6 K/mm3 (4.8-10.8)
[2025-03-10 17:24] LABS: Alanine Aminotransferase 12 U/L (12-78); Albumin/Globulin Ratio 1.5 (1.1-1.8); Alkaline Phosphatase 72 U/L (38-126); Amylase 50 U/L (30-110); Anion Gap 10.8 mEq/L (5-15); Aspartate Amino Transferase 20 U/L (17-59); Bilirubin,Total 0.7 mg/dl (0.2-1.3); Blood Urea Nitrogen 19 mg/dl (9-20); Calcium 9.1 mg/dl (8.4-10.2); Carbon Dioxide 27 mmol/L (22.0-30.0); Chloride 110 mmol/L (98-107); Estimated Glomerular Filt Rate 53 ml/min (>60); GFR (African American) 64 ML/MIN (>60); Globulin 2.7 g/dL (1.3-3.2); Glucose 121 mg/dl (74-100); Lipase 72 U/L (23-300); Magnesium 2.1 mg/dl (1.6-2.3); Potassium 4.8 mmoL/L (3.5-5.1); Sodium 143 mmol/L (136-145); Total Protein,Serum 6.7 g/dl (6.3-8.2)
[2025-03-10 17:54] LABS: Thyroid Stimulating Hormone 0.94 uIU/mL (0.465-4.68)
== END 2025-03-10 23:59 | disposition home or self-care (01) ==
LOC: RAD 13:51
PROVIDERS: PCP Nurse Practitioner Family; Visit Provider Nurse Practitioner Family
DX: M25.511 Pain in right shoulder (principal); M25.611 Stiffness of right shoulder, not elsewhere classified; R39.11 Hesitancy of micturition; R26.89 Other abnormalities of gait and mobility; R11.0 Nausea; Z12.5 Encounter for screening for malignant neoplasm of prostate
CPT/HCPCS: 73030; 80053; 82150; 83690; 83735; 84443; 85025; G0103